=== PATIENT | male | born 1955 | race Caucasian/White ===

== ENCOUNTER 2017-01-29 16:18 | Inpatient (IN) ==
[2017-01-29] MEDS ORDERED: NICODERM PATCH TD ONE (16:49)
[2017-01-29 16:57] LABS: BASO% 0.2 % (0.0-0.8); EOS# 0.12 X1000 (0.0-0.7); EOS% 0.8 % (0.0-10.0); HEMATOCRIT 32.4 % (42.0-52.0); HEMOGLOBIN 10.6 g/dL (14.0-18.0); IMM GRAN# 0.07 X1000 (0.0-0.04); IMM GRAN% 0.5 % (0.0-0.5); LYMPH# 1.24 X1000 (1.2-3.4); LYMPH% 8.7 % (20.5-51.1); MANUAL DIFF NEEDED? NO; MCH 30.3 PG (27-31); MCHC 32.7 g/dL (33-37); MCV 92.6 FL (81-99); MONO# 1.13 X1000 (0.11-0.59); MPV 10.9 FL (7.4-10.4); NEUT% 81.8 % (42.2-75.2); PLT 377 X1000 (130-400)
[2017-01-29] MEDS ORDERED: LR 1,000 ML IV ONE (16:57)
[2017-01-29 17:03] LABS: INR 1.19; PROTIME 12.6 Seconds (9.2-11.7); PTT 38.5 Seconds (22.0-36.0)
[2017-01-29] MEDS ORDERED: NS 1,000 ML ONE (17:07)
[2017-01-29] MEDS ORDERED: NS 1,000 ML IV ONE (17:16)
[2017-01-29 17:25] LABS: ALBUMIN 3.5 g/dL (3.5-5.0); CALCIUM 8.5 mg/dL (8.8-10.2); POTASSIUM 4.8 mmol/L (3.5-5.1); TOTAL BILIRUBIN 0.49 mg/dL (0.20-1.00); TOTAL PROTEIN 7.8 g/dL (6.3-8.3)
--- NOTE | 2017-01-29 17:41 | PROVIDER DOCUMENTATION ---
This chart was entered by Elton Kumari Scribe, acting as scribe for Tae Walker MD. HPI-Rash/Wound/ReCheck - General Chief Complaint: Possible Sepsis-D Stated Complaint: WOUND ON FOOT, HALLUCINATIONS Time Seen by Provider: 01/29/17 16:43 Source: family Unable to obtain history due to:: altered Allergies/Adverse Reactions: Allergies Allergy/AdvReac Type Severity Reaction Status Date / Time No Known Allergies Allergy Verified 11/17/16 19:52 Home Medications: Home Medication List Medication Instructions Recorded Confirmed Last Taken Type Metformin [Glucophage] 1,000 mg PO BID 08/06/16 01/29/17 01/29/17 History Pregabalin [Lyrica] 150 mg PO BID 08/06/16 01/29/17 01/29/17 History Aspirin 81 mg PO DAILY 11/17/16 01/29/17 01/29/17 History Bupropion HCl [Bupropion HCl ER] 150 mg PO QAM 11/17/16 01/29/17 01/29/17 History Carvedilol [Coreg] 3.125 mg PO BID 11/17/16 01/29/17 01/29/17 History Furosemide [Furosemide] 20 mg PO BID 11/17/16 01/29/17 01/29/17 History Nortriptyline HCl 75 mg PO QHS 11/17/16 01/29/17 1 Day Ago History Diclofenac Sodium 75 mg PO BID 01/29/17 01/29/17 01/29/17 History Glipizide [Glipizide ER] 5 mg PO QAM 01/29/17 01/29/17 01/29/17 History Hydrocodone Bit/Acetaminophen 1 each PO Q6H PRN 01/29/17 01/29/17 01/29/17 History [Hydrocodon-Acetaminoph 7.5-325] - History of Present Illness-Dermatology Nature of Presenting Problem: patient is a 61 y/o m that presents from PCP office for evaluation of foot ulcer. patient has had hallucinations as well since saturday. He actually was at [facility] and was going to be admitted but he eloped. patient has no fever. Location: reports: lower extremity (left foot) Quality: reports: painful Severity: reports: moderate Onset/Duration: reports: unsure Timing: reports: still present, constant Context/Associated Symptoms: reports: other (diabetic wound) Locality of Occurance: Home Similar Symptoms Previously?: Yes Recently seen or treated by another doctor?: Yes Review of Systems - Adult - REVIEW OF SYSTEMS - ADULT Constitutional: denies: chills, fever Eyes: reports: no symptoms reported Ears, Nose, Mouth & Throat: reports: no symptoms reported Cardiovascular: denies: chest pain, palpitations Respiratory: denies: chronic cough, shortness of breath, wheezing Gastrointestinal: denies: abdominal pain, nausea, vomiting Genitourinary: reports: no symptoms reported Musculoskeletal: denies: back pain, joint pain, neck pain Integumentary: reports: skin sores/ulcer. denies: rash Neurological: reports: other (ams). denies: dizziness/vertigo, headache/ migraines Psychiatric: reports: other (hallucinations) Endocrine: reports: no symptoms reported Hematologic/Lymphatic: reports: no symptoms reported Allergic/Immunologic: reports: no symptoms reported All Other Systems: Reviewed and Negative Past History - Adult - PAST MEDICAL HISTORY-ADULT Review of Records: reports: Old Records Reviewed, Nursing Assessment Review, Medications Reviewed Major Childhood Illnesses: reports: denies history Cardiovascular: reports: CAD, HTN Respiratory: reports: asthma, COPD Gastrointestinal: reports: denies history Obstetrical/Gynecological: reports: denies history Genitourinary: reports: denies history Musculoskeletal: reports: denies history Neurological: reports: denies history Psychiatric: reports: denies history Endocrine/Immune: reports: Diabetes Other Conditions: reports: denies history - PRIOR SURGERIES/PROCEDURES Surgical/Procedure History: reports: none - PRIOR HOSPITALIZATIONS Prior Hospitalizations: reports: none - IMMUNIZATION STATUS Childhood Immunizations: See Nurse Assessment Flu Vaccine: See Nurse Assessment - FAMILY HISTORY Family History: reviewed, not pertinent - SOCIAL HISTORY Smoking: cigarettes, less than 1 pack/day Living Situation: family Physical Exam-General - PHYSICAL EXAM-ADULT Initial Vital Signs Reviewed: Yes - CONSTITUTIONAL General Appearance: mild distress, moderate distress, anxious, lethargic - EYES Eyes: PERRL/EOMI, pink conjunctivae - HEAD, EARS, NOSE, MOUTH & THROAT HENMT: normocephalic/atraumatic, moist mucous membranes, normal ENT inspection - NECK Neck: full range of motion, normal inspection - RESPIRATORY Respiratory: lungs clear, normal breath sounds, no respiratory distress, no accessory muscle use - CARDIOVASCULAR Cardiovascular: regular rate, rhythm, no edema, no murmur - GASTROINTESTINAL (ABDOMEN) Abdominal Exam: normal bowel sounds, non tender, soft - MUSCULOSKELETAL Back Exam: no CVA tenderness, no vertebral tenderness Extremity: no pedal edema, no calf tenderness - SKIN Integumentary: warm/dry, other (diabetic foot ulcer noted to left posterior great toe, also a large diabetic ulcer to left lateral foot with necrotic tissue and foul smell) - NEUROLOGIC Neurologic: negative: facial droop, focal weakness, motor weakness - PSYCHIATRIC Psych/Mental Status: anxious, other (confused) Progress - PLAN OF CARE/RESULTS Progress/Plan/Lab Results: Vital Signs - 8 hr 01/29/17 16:40 01/29/17 17:00 Temperature 98.3 F Pulse Rate 98 H 103 H Respiratory Rate 24 22 Blood Pressure 96/54 94/65 O2 Sat by Pulse Oximetry 98 100 Laboratory Results - last 24 hr 01/29/17 01/29/17 01/29/17 16:30 16:30 16:30 WBC 14.21 H RBC 3.50 L Hgb 10.6 L Hct 32.4 L MCV 92.6 MCH 30.3 MCHC 32.7 L RDW Std Deviation 13.6 Plt Count 377 MPV 10.9 H Immature Gran % (Auto) 0.5 Neut % (Auto) 81.8 H Lymph % (Auto) 8.7 L [place] % (Auto) 8.0 Eos % (Auto) 0.8 Baso % (Auto) 0.2 Immature Gran # (Auto) 0.07 H Neut # (Auto) 11.62 H Lymph # (Auto) 1.24 [place] # (Auto) 1.13 H Eos # (Auto) 0.12 Baso # (Auto) 0.03 PT INR PTT (Actin FS) Sodium 131 L Potassium 4.8 Chloride 89 L Carbon Dioxide 27 Anion Gap 15 BUN 66 H Creatinine 3.3 H Estimated GFR/1.73 m2 19 BUN/Creatinine Ratio 20 Glucose 99 Calculated Osmolality 282 Calcium 8.5 L Total Bilirubin 0.49 AST 36 H ALT 41 Alkaline Phosphatase 119 Creatine Kinase 172 Troponin T Total Protein 7.8 Albumin 3.5 Globulin 4.3 Albumin/Globulin Ratio 0.8 Plasma Lactate 1.8 01/29/17 01/29/17 16:30 16:30 WBC RBC Hgb Hct MCV MCH MCHC RDW Std Deviation Plt Count MPV Immature Gran % (Auto) Neut % (Auto) Lymph % (Auto) Plumas % (Auto) Eos % (Auto) Baso % (Auto) Immature Gran # (Auto) Neut # (Auto) Lymph # (Auto) [place] # (Auto) Eos # (Auto) Baso # (Auto) PT 12.6 H INR 1.19 PTT (Actin FS) 38.5 H Sodium Potassium Chloride Carbon Dioxide Anion Gap BUN Creatinine Estimated GFR/1.73 m2 BUN/Creatinine Ratio Glucose Calculated Osmolality Calcium Total Bilirubin AST ALT Alkaline Phosphatase Creatine Kinase Troponin T 0.067 Total Protein Albumin Globulin Albumin/Globulin Ratio Plasma Lactate Orders Category Date Time Status Cardiac Monitoring DIRECTED Care 01/29/17 16:43 Active IV Insertion ORDERED Care 01/29/17 16:43 Active Notify MD of + Sepsis Screen NOW Care 01/29/17 16:43 Active CHEST-2 VIEWS [RAD] Stat Exams 01/29/17 16:43 Ordered BLOOD CULTURE [BLDCUL] Stat Lab 01/29/17 16:52 Received CBC WITH DIFF [HEME] Stat Lab 01/29/17 16:30 Completed CK PROFILE [SP CHEM] Stat Lab 01/29/17 16:30 Completed COMPREHENSIVE METABOLIC PANEL [CHEM] Stat Lab 01/29/17 16:30 Completed LACTATE, PLASMA [CHEM] Stat Lab 01/29/17 16:30 Completed PROTIME WITH INR [COAG] Stat Lab 01/29/17 16:30 Completed PTT [COAG] Stat Lab 01/29/17 16:30 Completed TROPONIN T Stat Lab 01/29/17 16:30 Completed URINALYSIS W/POSS RFLX CULT-1 [URINALYSIS] Stat Lab 01/29/17 16:43 Uncollected 0.9% Sodium Chloride Inj [Ns] 1,000 ml Med 01/29/17 17:07 Discontinued .ROUTE As Directed 0.9% Sodium Chloride Inj [Ns] 1,000 ml Med 01/29/17 17:16 Active IV 999 mls/hr Nicotine Patch [Nicoderm Patch] Med 01/29/17 16:49 Discontinued 21 mg TD NOW ONE Oxygen Device Stat Oth 01/29/17 16:43 Active Transfer/Admit Order [TRANSFER] Routine Transfer 01/29/17 17:28 Ordered Result Diagrams: 01/29/17 16:30 01/29/17 16:30 - REASSESSMENT Reassessment #1 Status: unchanged (discussed admission and his walking out of the hospital last Saturday. he is a smoker and needs nicoderm) - CONSULTS/PCP/HOSPITALIST Notification #1 *Consult/PCP/Hospitalist*: ( on for hospitalist) Time Discussed: 16:55 Consult Disposition: Will see in ED, Admit Departure - Departure Date of Disposition Decision: 01/29/17 Time of Disposition Decision: 17:00 DIAGNOSIS: Diabetic foot infection, Cellulitis and abscess of foot, except toes Disposition: ADMITTED INPATIENT 09 Certified Medical Emergency: Emergent Condition: Stable Referrals and Follow-Ups: Dileep Geiger MD [ACTIVE STAFF PHYSICIAN] - - Critical Care Note This patient required my direct & personal management of CC.: No This chart was documented by the indicated scribe, (Elton Kumari, Scribe) and accurately reflects the services I performed and decisions made by me, Tae Walker MD, as attested by the provider's signature.
--- NOTE | 2017-01-29 17:55 | Diag Imaging Result Doc PS360 ---
EXAM: CHEST-2 VIEWS HISTORY: SEPSIS TECHNIQUE: Upright AP and lateral COMPARISON: 11/17/2016 FINDINGS: The lungs are well expanded. The heart is not enlarged. The vessels are not distended. There are no infiltrates. No pleural effusions. IMPRESSION: No pneumonia. Electronically signed by Aaron Su 01/29/2017 5:52 PM
--- NOTE | 2017-01-29 17:58 | HISTORY AND PHYSICAL ---
HISTORY OF PRESENT ILLNESS: This is a 61-year-old. He will presented with an ulcer in his right foot. Apparently went to [place]. He is a patient of Dr. Geiger. They told him to come the emergency room and he left AMA. They have been treating an open ulcer on his left big toe and he developed bullae and swelling and subcutaneous swelling around the foot and dorsum of foot and this has spread. Concerned about aggressive infection. Concerned about osteomyelitis. He will need to come in and get IV antibiotics. PAST MEDICAL HISTORY: 1. Diabetes mellitus type 2 which he has had over 12 years. 2. Tobacco abuse. 3. Coronary artery disease with mid RCA disease. 4. Chronic systolic heart failure with ejection fraction 20%, so ischemic cardiomyopathy. Ejection fraction was measured in September 2016. 5. He has aortic stenosis. 6. Restless legs syndrome. PAST SURGICAL HISTORY: None. ALLERGIES: No known drug allergies. MEDICATIONS: Amlodipine 10 mg a day, hydrocodone I think he takes for pain, metformin 100 mg b.i.d., Lyrica 75 mg b.i.d. SOCIAL HISTORY: He smokes 2 packs a day for over 40 years. No alcohol or illicit drugs. He is . REVIEW OF SYSTEMS: General: Denies any weight gain or loss. Not aware of any fever or chills. HEENT: Unremarkable. Respiratory: No increased work of breathing or dyspnea. Cardiovascular: No chest pain or tachy palpitation. GI/: No complaints. Endocrinologic/Hematologic: No significant history. PHYSICAL EXAMINATION: VITAL SIGNS: Temperature 98.3 degrees, pulse 103, respirations 22, blood pressure 94/65. O2 saturation 100% on 4 L. Height 5 feet 10 inches. HEENT: Pupils are equal, round. LUNGS: Clear in all lung mott. CARDIOVASCULAR: Regular rhythm and rate without murmur or S3. ABDOMEN: Soft. SKIN: Warm and dry. EXTREMITIES: Left foot with a callus on the dorsum the big toe, lateral foot, along the lateral metatarsal with a large bullae. This has extended below the dorsum of the foot, across the foot with no tenderness but he has significant severe peripheral neuropathy. LAB: White count 14,210, hematocrit was 32, platelet count 377,000. Electrolytes pending at this time. PT is 12.6, INR 1.19, and PTT is 38. CURRENT MEDICATIONS: He is on aspirin 81 mg a day. Apparently, they are tapering him down off of his Wellbutrin or bupropion 150 mg q.a.m. Coreg 3.125 mg b.i.d., diclofenac 75 mg b.i.d., Lasix 20 mg b.i.d., glipizide 5 mg q.a.m., hydrocodone 7.5/325 q.6 hours p.r.n., Glucophage 1000 mg b.i.d., nortriptyline 75 mg at bedtime, Lyrica 150 mg p.o. daily. ASSESSMENT AND PLAN: 1. Severe diabetic foot ulcer. Concerned about deep tissue infection. Concerned about possible osteomyelitis. We will get x-rays of the foot. I will ask infectious disease to follow. May need to pursue a CAT scan of the foot as well. We will begin him on antibiotics. He has had previous cultures that grew out enterococcus. Apparently this was done on 01/25, group D enterococcus and enterococcus faecalis and was sensitive to ampicillin and vancomycin. I will put him on some vancomycin. But I am going to cover with some Zosyn for now as well, multiple organisms. He was treated with Staph aureus in the past, Morganella morganii, and Acinetobacter in the past as well. I will give him some IV fluids. 2. Diabetes mellitus type 2. We will check pattern sugars. 3. Nicotine dependence. Use a nicotine patch. 4. General anxiety. He has left AMA before and does not like hospitals, so will let him have some Ativan p.r.n. cc: Manjit Henderson MD
[2017-01-29] MEDS ORDERED: ZOSYN 4.5 GM/NS 4.5 GM/100 ML IVPB IV SCH (18:13)
[2017-01-29] MEDS ORDERED: VANCOMYCIN 1 GM/NS 1 GM/250 ML IVPB IV ONE (18:13)
[2017-01-29] MEDS ORDERED: TYLENOL PO PRN (18:13)
[2017-01-29] MEDS ORDERED: VANCOMYCIN IV PER PHARMACY MISC SCH (19:15)
[2017-01-29] MEDS ORDERED: VANCOMYCIN 2 GM in NS 500 ML IV SCH (20:00)
[2017-01-29] MEDS ORDERED: VOLTAREN PO SCH (21:00)
[2017-01-29] MEDS ORDERED: GLUCOPHAGE PO SCH (21:00)
[2017-01-29] MEDS ORDERED: LASIX PO SCH (21:00)
[2017-01-29] MEDS: PAMELOR PO SCH (21:09)
[2017-01-29] MEDS: LYRICA PO SCH (21:10)
[2017-01-29] MEDS: COREG PO SCH (21:11)
[2017-01-29] MEDS ORDERED: D50W SYRINGE ONE (23:09)
[2017-01-29 23:35] LABS: ALLEN TEST YES; BE 0.6 mmoll (-3.0-3.0); BLOOD TYPE ARTERIAL; DRAW SITE R RADIAL; METHB 0.9 % (0.0-1.5); O2(CT) 13.1 mL/dL (15.0-23.0); PO2(98.6) 107 mmHg (60-100); SAMPLE BLOOD; SAO2 98.9 % (95.0-100.0); THB 9.6 g/dL (11.5-17.4)
[2017-01-29 23:37] LABS: MODALITY CANNULA; PCO2(98.6) 56 mmHg (35-45)
[2017-01-30] MEDS ORDERED: LEVOPHED 8 MG in D5 1/2 NS 250 ML IV SCH (00:15)
[2017-01-30 03:38] LABS: URINE SOURCE CATH
[2017-01-30 03:43] LABS: BILIRUBIN URINE NEGATIVE (NEGATIVE); BLOOD URINE NEGATIVE (NEGATIVE); COLOR YELLOW; GLUCOSE URINE NEGATIVE (NEGATIVE); LEUKOCYTES URINE NEGATIVE (NEGATIVE); NITRITE URINE NEGATIVE (NEGATIVE); PROTEIN URINE 30 mg/dL (NEGATIVE); TURBIDITY URINE HAZY (CLEAR); URINE MICRO REVIEW NEEDED? YES; UROBILINOGEN URINE 3 mg/dL (NORMAL)
[2017-01-30 03:45] LABS: UR EPITHELIAL CELLS <10 /HPF (<10); URINE WBC <10 /HPF (<10)
[2017-01-30 04:03] LABS: URINE BACTERIA 4+ /HPF; URINE CASTS GRANULAR PRESENT; URINE CRYSTALS NONE SEEN; URINE CULTURE NEEDED? YES; URINE RBC <10 /HPF (<10); URINE SMALL ROUND CELLS TRANS PRESENT
[2017-01-30 04:20] LABS: ALLEN TEST YES; BE -0.2 mmoll (-3.0-3.0); BLOOD TYPE ARTERIAL; DRAW SITE R RADIAL; METHB 1.1 % (0.0-1.5); PCO2(98.6) 48 mmHg (35-45); PO2(98.6) 93 mmHg (60-100); SAMPLE BLOOD; SAO2 98.3 % (95.0-100.0); THB 10.4 g/dL (11.5-17.4); pH(98.6) 7.34 (7.35-7.45)
[2017-01-30 04:21] LABS: MODALITY BI PAP
[2017-01-30] MEDS: ZOSYN 2.25 GM/NS 2.25 GM/50 ML IVPB IV SCH ×3 (04:29→18:30)
--- NOTE | 2017-01-30 05:31 | EKG Report ---
Test Performed on : 01/30/2017 02:01:29 AM Test Reason : Hypotension Blood Pressure : / mmHG Vent. Rate : 088 BPM Atrial Rate : 088 BPM P-R Int : 184 ms QRS Dur : 222 ms QT Int : 482 ms P-R-T Axes : 070 -09 046 degrees QTc Int : 583 ms Sinus rhythm. with premature supraventricular complexes. and fusion complexes Left bundle branch block Abnormal ECG When compared with ECG of 17 Nov 2016 19:49 No significant change was found Confirmed by Joshua Cifuentes DO ([id number]) on 02/01/2017 1:03:04 PM
[2017-01-30 05:46] LABS: BASO% 0.3 % (0.0-0.8); EOS# 0.25 X1000 (0.0-0.7); EOS% 2.2 % (0.0-10.0); HEMATOCRIT 30.4 % (42.0-52.0); HEMOGLOBIN 9.9 g/dL (14.0-18.0); IMM GRAN# 0.06 X1000 (0.0-0.04); IMM GRAN% 0.5 % (0.0-0.5); LYMPH# 1.54 X1000 (1.2-3.4); LYMPH% 13.7 % (20.5-51.1); MANUAL DIFF NEEDED? YES; MCH 30.4 PG (27-31); MCHC 32.6 g/dL (33-37); MCV 93.3 FL (81-99); MONO# 1.02 X1000 (0.11-0.59); MONO% 9.1 % (1.7-9.3); MPV 11.5 FL (7.4-10.4); NEUT% 74.2 % (42.2-75.2); PLT 343 X1000 (130-400); RBC 3.26 XMIL (4.7-6.1)
[2017-01-30 06:38] LABS: ALBUMIN 3.2 g/dL (3.5-5.0); CALCIUM 8.3 mg/dL (8.8-10.2); MAGNESIUM 1.8 mg/dL (1.5-2.7); POTASSIUM 4.7 mmol/L (3.5-5.1); TOTAL BILIRUBIN 0.49 mg/dL (0.20-1.00); TOTAL PROTEIN 6.5 g/dL (6.3-8.3)
[2017-01-30 06:46] LABS: BANDS 2 % (0-1); HYPOCHROM 1+; LYMPHS 18 % (21-51); MONO 6 % (1-9)
[2017-01-30 06:47] LABS: LARGE PLATELETS 1+
--- NOTE | 2017-01-30 07:24 | Diag Imaging Result Doc PS360 ---
EXAM: FOOT COMPLETE LEFT INDICATION: Left Foot Infection TECHNIQUE: 3 views COMPARISON: 01/25/2017 FINDINGS: Soft tissue ulceration is again noted overlying the region of the fifth MTP joint. There are no definite bony erosions identified to indicate osteomyelitis by plain radiograph this time. Otherwise, the bony structures are unchanged. IMPRESSION: Stable ulceration overlying the fifth MTP joint as described. No definite bony erosion can be identified on the current study. Electronically signed by Polo Mary 01/30/2017 7:22 AM
[2017-01-30] MEDS ORDERED: CUBICIN 700 MG in NS 100 ML IV SCH ×2 (08:15→09:00)
--- NOTE | 2017-01-30 08:35 | CONSULTATION ---
DATE OF CONSULTATION: 01/30/2017 DISCUSSION: The patient is unable to provide a history. No family member was present. The history was obtained from reviewing the information in the computer. The patient apparently developed an ulcer on his left foot. He went to [place], and he was told to come to the emergency room at [place], and he left AGAINST MEDICAL ADVICE. At the time, there was an open ulcer on his left big toe, and he developed bulla and swelling around the foot and dorsum. IMAGING AND LABORATORY DATA: The patient's lab studies show a CBC with a white count of 11,270, hemoglobin 9.9, and platelet count 343,000. Blood gases show pH of 7.34, PO2 of 93, and a pCO2 of 48. Creatinine is 3.4. GFR is 19. AST is 51. Urinalysis shows bacteria, but no white cells. Blood and urine cultures are pending. Chest x-ray shows no pneumonia. An x-ray of the patient's foot is pending also. PAST MEDICAL HISTORY: Positive for diabetes mellitus, cigarette smoking, coronary artery disease, congestive heart failure with ischemic cardiomyopathy and low ejection fraction. He also has an aortic stenosis and restless leg syndrome. PAST SURGICAL HISTORY: None. DRUG ALLERGIES: None. MEDICATIONS: The patient, at home, was taking amlodipine, hydrocodone, metformin, and Lyrica. SOCIAL HISTORY: The patient smokes 2 packs of cigarettes a day for over 40 years. He does not drink alcoholic beverages or use illicit drugs. The patient is . REVIEW OF SYSTEMS: Unable to be obtained. PHYSICAL EXAMINATION: Vital Signs: Temperature is 97.1 degrees, pulse 87, respirations 17, blood pressure 87/75. The patient is 5 feet 10 inches tall, and weighs 258 pounds. General: This is an ill-appearing, middle-aged male. He has a BiPAP mask on, and he is sedated. HEENT: He could hear my spoken words, and he did track with his eyes, indicating that he could see. There is no drainage from the nose or ears. Neck: No meningismus. Thorax: Increased AP diameter of the chest. Lungs: Clear to auscultation. Cardiovascular: Heart rate was regular. Peripheral pulses were diminished. Abdomen: Soft and nontender. Neurologic: The patient, as mentioned above, is sedated. For the most part, he was sleeping. He did follow request to move his extremities. There was no tremor. He did not answer questions when I asked them. Extremities: The left foot has, on the great toe, a lesion that was a bulla. The lateral distal part of the left foot has dry gangrene and a foul odor. CONCLUSION: This 61-year-old male diabetic has gangrene of the left foot. RECOMMENDATIONS: I obtained a culture from the foot. Pending this result, I agree with the decision to place the patient on Zosyn, but since the patient's creatinine is already elevated, I am going to discontinue vancomycin, and put the patient on daptomycin. Thank you for the consult. cc: Abundio Freeman MD
[2017-01-30] MEDS ORDERED: GLUCOTROL XL PO SCH (09:00)
--- NOTE | 2017-01-30 09:10 | CONSULTATION ---
DATE OF CONSULTATION: 01/30/2017 CHIEF COMPLAINT: Gangrene of the left fifth toe and base of the foot. HISTORY: This is a 61-year-old diabetic gentleman, apparently poorly compliant regarding his medical problems, who presents with gangrene of the left small toe and base of the foot. Apparently, he has a history of a neuropathic ulcer on the great toe, followed by Dr. De Dios for this problem. He has developed progressive necrosis of the left fifth toe and base of the foot. PAST MEDICAL HISTORY: Pertinent for type 2 diabetes, nicotine dependence, coronary artery disease, chronic systolic heart failure with EF of 20%, apparently aortic stenosis. PAST SURGICAL HISTORY: He has had no previous surgery. MEDICATIONS: Listed and include amlodipine, metformin, Lyrica, and hydrocodone. ALLERGIES: He has no known drug allergies. SOCIAL HISTORY: He smokes 2 packs per day. Denies alcohol. REVIEW OF SYSTEMS: As noted above. PHYSICAL EXAMINATION: Vital Signs: Afebrile, heart rate 87, respiratory rate 17, blood pressure 87/75. General: He is somewhat disheveled. Neck: He has no adenopathy. Lungs: Bilateral breath sounds. Heart: Regular rate and rhythm. Abdomen: Rotund, but nontender. Extremities: I do not palpate femoral pulses well. I do not palpate pedal pulses. He has no significant swelling. He does have gangrene of the left fifth toe that goes around to the base of the foot. He has a small ulceration under the great toe, with some alginate packed in it. No ulcerations are seen on the right foot. LABORATORY DATA: White count is 11,300, hemoglobin 9.9. PH 7.34. BUN 71, creatinine 3.4. ASSESSMENT: 1. Gangrene of the left fifth toe. 2. Diabetes. 3. Medical noncompliance. 4. Nicotine abuse. PLAN: The plan will be to get an MAURI study of his vasculature today. Unfortunately, his creatinine may prevent further evaluation with contrast. He most certainly will come to toe loss. The question is whether he will heal any kind of foot amputation. I will follow along. Thanks for the opportunity to see him. cc: Antonio Hanks MD
[2017-01-30] MEDS: ASPIRIN PO SCH (09:21)
[2017-01-30] MEDS: HUMALOG SUBQ SCH ×3 (10:57→20:07)
[2017-01-30 11:40] LABS: URINE SOURCE CATH
[2017-01-30 11:44] LABS: BILIRUBIN URINE NEGATIVE (NEGATIVE); BLOOD URINE MODERATE (NEGATIVE); COLOR YELLOW; GLUCOSE URINE NEGATIVE (NEGATIVE); LEUKOCYTES URINE SMALL (NEGATIVE); NITRITE URINE NEGATIVE (NEGATIVE); PROTEIN URINE 30 mg/dL (NEGATIVE); SP GRAVITY URINE 1.015; TURBIDITY URINE HAZY (CLEAR); URINE MICRO REVIEW NEEDED? YES; UROBILINOGEN URINE NORMAL (NORMAL)
[2017-01-30 11:56] LABS: UR CREAT RANDOM 90.4 mg/dL (14-26); UR PROT RANDOM 38.8 mg/dL
[2017-01-30 12:05] LABS: UR EPITHELIAL CELLS <10 /HPF (<10); URINE BACTERIA NEGATIVE /HPF; URINE CASTS NONE SEEN; URINE RBC TNTC /HPF (<10)
--- NOTE | 2017-01-30 14:09 | PROGRESS NOTE ---
DATE: 01/30/2017 SUBJECTIVE: Remains afebrile. OBJECTIVE: Temperature 97.3 degrees, pulse 92, respiration 17, blood pressure 114/87.HEENT: Pupils are equal. CVP less than 6 cm. Lungs: Clear in all lung mott. Cardiovascular: Regular rhythm and rate without murmur or S3. Abdomen: Soft. Skin: Warm and dry. Genitourinary: The urine output 1280 mL. Blood sugars is 142, 187. LAB: Hematocrit stable at 30. Sodium 142. Sugars are 142, 161, 57. Creatinine 3.4, BUN was 71. Creatinine is improved. ASSESSMENT AND PLAN: 1. Diabetic foot ulcer, gangrene in the left foot. Dr. Hanks to see from a surgical standpoint. He is on Zosyn, we will change from vancomycin to daptomycin because of renal insufficiency. Keep elevating the foot. 2. Acute on chronic renal insufficiency, acute kidney injury. Continue fluids. He did show improvement from yesterday. 3. Sepsis. Drop in blood pressure. He was moved to the unit. 4. Diabetes mellitus type 2. Continue pattern sugars. 5. Review of his orders: He is getting normal saline at 100 mL an hour. We adjusted the Zosyn to 2.25 mg IV q.8 hours and put him on daptomycin. cc: Manjit Henderson MD
--- NOTE | 2017-01-30 15:45 | CONSULTATION ---
DATE OF CONSULTATION: 01/30/2017 REASON FOR CONSULTATION: Acute kidney injury. HISTORY OF PRESENT ILLNESS: Mr. Layton is a 61-year-old white male with a history of diabetes for at least 2 years. He has ongoing tobacco abuse, coronary artery disease, peripheral vascular disease, aortic stenosis. He has had dry on ulcers on his feet especially on the left foot for at least a couple of years. He developed a new area of worsening eschar and redness and pain on the lateral aspect of the foot and under the plantar surface. Admission was recommended but he declined and went home. His foot continued to worsen and he therefore returned to the emergency room where he was admitted. He has significant pain. No chills or fevers. No cough or sputum. No shortness of breath. He states his intake has been decreased but no nausea or vomiting. No diarrhea. PAST MEDICAL HISTORY: As above. HOME MEDICATIONS: Include hydrocodone, metformin, Lyrica, amlodipine. ALLERGIES: None. SOCIAL: Ongoing smoker. . FAMILY HISTORY: Negative for kidney disease. REVIEW OF SYSTEMS: Otherwise noncontributory. PHYSICAL EXAMINATION: Vital Signs: Blood pressure 114/87, heart rate 92, respiration 17, afebrile. Generally: He is a middle-aged, chronically ill man, obese, in no distress. Skin: Warm and dry except as below. HEENT: Conjunctivae are pink and moist. Pupils are equal and round. Oropharynx is dry. Tongue is not coated. Neck: Supple. Trachea is midline. Neck veins are not visible. No hepatojugular reflux. Heart: PMI is nondisplaced. Regular rate and rhythm without gallops, murmurs or rubs. Lungs: Equal breath sounds. No crackles, wheezes, accessory muscle use or retractions. Abdomen: Obese and soft. Bowel sounds are present. No organomegaly, masses, bruits. Extremities: Have no edema, clubbing, or cyanosis. IMPRESSION: Renal failure. His baseline creatinine is 1.1 as of 4 days ago. This suggests intravascular volume depletion and possible acute tubular necrosis. He does not have any indications for hemodialysis at this time. Electrolytes and acid-base are in target. He still appears dry by exam. We will continue IV fluids. Check urine electrolytes, urine eosinophils, renal ultrasound, etcetera. I have reviewed his medications and no changes are required from my perspective. cc: Pavel Cummings MD
[2017-01-30] MEDS: NS 1,000 ML IV SCH ×2 (15:57→22:22)
[2017-01-30] MEDS: NORCO-7.5 PO PRN (17:05)
--- NOTE | 2017-01-30 17:24 | Diag Imaging Result Doc PS360 ---
EXAM: US RENAL 2 (RETROPER) COMPLETE HISTORY: decreased renal function TECHNIQUE: COMPARISON: None. FINDINGS: The right kidney measures 11.2 x 6.4 x 5.5 cm. Normal renal echogenicity and cortical thickness. No renal stones or hydronephrosis. No renal mass. The left kidney measures 12.5 x 5.1 x 7.0 cm. Normal renal echogenicity and cortical thickness. No renal stones or hydronephrosis. No renal mass. A Justin catheter has the urinary bladder decompressed. IMPRESSION: Normal renal ultrasound. Electronically signed by Aaron Su 01/30/2017 5:22 PM
[2017-01-30] MEDS: ZOFRAN IV PRN (20:12)
[2017-01-30] MEDS: ATIVAN IV PRN (21:45)
[2017-01-31] MEDS ORDERED: PHENERGAN IV ONE (00:33)
[2017-01-31] MEDS ORDERED: SODIUM CHLORIDE 0.9% INJ ONE (00:33)
[2017-01-31] MEDS: ZOSYN 2.25 GM/NS 2.25 GM/50 ML IVPB IV SCH ×3 (02:00→18:43)
[2017-01-31 05:15] LABS: HEMATOCRIT 33.8 % (42.0-52.0); HEMOGLOBIN 11.1 g/dL (14.0-18.0); MCH 30.7 PG (27-31); MCHC 32.8 g/dL (33-37); MCV 93.4 FL (81-99); MPV 10.5 FL (7.4-10.4); RBC 3.62 XMIL (4.7-6.1)
[2017-01-31 05:43] LABS: AGAP 15; ALBUMIN 3.1 g/dL (3.5-5.0); BUN 45 mg/dL (8-22); CALCIUM 8.8 mg/dL (8.8-10.2); CHLORIDE 97 mmol/L (98-107); COSMO 296; SODIUM 138 mmol/L (136-145); TCO2 26 mmol/L (25-35)
[2017-01-31] MEDS: ZOFRAN IV PRN (05:51)
[2017-01-31] MEDS: HUMALOG SUBQ SCH ×4 (06:12→20:25)
[2017-01-31] MEDS ORDERED: PHENOBARBITAL IV ONE ×2 (07:25→08:00)
--- NOTE | 2017-01-31 07:48 | PROGRESS NOTE ---
DATE: 01/31/2017 SUBJECTIVE: Mr. Layton was very agitated in the night and had delirium. Ativan did not seem to work well, in fact, it seemed to make things worse. OBJECTIVE: Vital Signs: Temperature 98 degrees, pulse 100, respirations 26, blood pressure 141/110. Lungs: Clear in all lung mott. Cardiovascular: Regular rhythm and rate without murmur or S3. Abdomen: Soft. Skin: Warm and dry. Urine output is over 5 L. LABORATORY DATA: White count 14,590, hematocrit 33, platelet count 422,000. Chemistry: Sodium 138, potassium 5.0, chloride 97, BUN 45, creatinine 1.2, blood sugars 157, 114, 249. ASSESSMENT AND PLAN: 1. Renal failure. Baseline creatinine was 1.1 four days ago, so I suspect intravascular volume depletion, possible acute tubular necrosis. He does not have indications for hemodialysis at this time. Electrolytes and acid base are on target. 2. Sepsis foot infection, left foot, gangrenous foot. Continue present antibiotics, which are daptomycin and Zosyn. He has had a previous culture, which showed enterococcus. Continue fluid management. Maintain his blood pressure. 3. Diabetes mellitus type 2. Continue to follow and pattern sugars. 4. Confusion and delirium. We will try Haldol as needed, and maybe phenobarbital. cc: Manjit Henderson MD
[2017-01-31] MEDS: NORCO-7.5 PO PRN ×2 (08:00→18:20)
[2017-01-31] MEDS: ASPIRIN PO SCH (08:09)
[2017-01-31] MEDS: NS 1,000 ML IV SCH ×2 (08:10→19:34)
[2017-01-31] MEDS: HALDOL IV PRN ×6 (09:04→23:17)
--- NOTE | 2017-01-31 10:37 | PROGRESS NOTE ---
DATE: 01/31/2017 SUBJECTIVE: He remains restrained and somewhat confused. He was on BiPAP overnight but currently on nasal cannula. OBJECTIVE: Vital Signs: Blood pressure 141/110, heart rate 103, respirations 26, afebrile. Intake 2.5 L. Output 3.3 L. PHYSICAL EXAMINATION: No acute distress. Oropharynx is dry. Neck veins are not visible. Heart is regular without gallops or murmurs. Lungs have equal breath sounds. No crackles. Abdomen is soft, nontender. Bowel sounds present. Extremities have no edema, clubbing, or cyanosis. IMPRESSION: 1. Acute kidney injury, resolving. 2. Electrolytes and acid-base are in target. I will sign off at this time. If I can be of further assistance, please do not hesitate to call. cc: Pavel Cummings MD
--- NOTE | 2017-01-31 15:37 | Diag Imaging Result Doc PS360 ---
EXAM: ANGIOGRAM/AORTA W/RUNOFF INDICATION: gangrene of foot TECHNIQUE: In addition to the standard thin section CTA images, coronal reformations, sagittal reformations, and radial MIPS were obtained. COMPARISON: None. FINDINGS: There is moderate aortic and more significant iliac artery atherosclerotic disease. There is no evidence of aortic aneurysm or dissection. There is mild narrowing at the origin of the celiac trunk, best appreciated on the sagittal reformations. There is trace atherosclerotic calcification at the origin of the SMA. However, it remains widely patent throughout its course. The KONRAD is patent throughout its course. There is trace atherosclerotic calcification involving the right renal artery. However, both renal arteries remain widely patent. There is extensive common iliac artery atherosclerotic calcification with intermittent moderate stenosis. There is extensive internal iliac artery calcification. There is fairly extensive atherosclerotic disease involving the external iliac arteries with intermittent mild to moderate stenosis proximally. There are bilateral small pleural effusions and there is bibasilar atelectasis. There is increased stool in the colon suggesting possible constipation. Otherwise, there is no evidence of acute pathology involving the abdomen or pelvis. Right: There is mild patchy atherosclerotic calcification involving the common femoral artery with no high-grade stenosis. There is extensive atherosclerotic calcification involving the superficial femoral artery which becomes totally occluded distally. There is reconstitution via collateralization just proximal to the popliteal artery. The popliteal artery remains patent. There are calcifications involving the anterior tibial artery proximally. The anterior tibial artery is very diminutive and cannot be identified below the level of the ankle. There is atherosclerotic calcification involving the tibioperoneal trunk with at least moderate stenosis. The posterior tibial artery is diminutive but it appears to provide runoff to the foot. The peroneal artery cannot be identified below the ankle. Left: There is atherosclerotic calcification involving the common femoral artery with moderate stenosis. However, it remains patent. There is extensive superficial femoral artery atherosclerotic calcification that is most significant at the mid and distal portions with intermittent subtotal to total occlusion. However, it is reconstituted just proximal to the popliteal artery. There is patchy atherosclerotic calcification involving the popliteal artery. However, it remains patent. There is extensive atherosclerotic calcification involving the anterior tibial artery proximally. It appears to be completely occluded at least below the level of the calf. There is atherosclerotic calcification involving the posterior tibial artery proximally. However, it does appear to provide runoff to the foot. There is peroneal artery atherosclerotic calcification it cannot clearly be identified below the level of the ankle. IMPRESSION: Moderate aortic atherosclerotic disease and fairly extensive atherosclerotic disease involving the iliac arteries and the arteries of the lower extremities with limited runoff to the feet provided at least mostly by the posterior tibial arteries. Electronically signed by Polo Mary 01/31/2017 3:34 PM
--- NOTE | 2017-01-31 16:21 | VASCULAR LAB ---
PROCEDURE NAME: Arterial Bilateral Legs - 01/30/2017 STUDY: Lower extremity arterial study. INDICATION: The patient has gangrene of the left foot. REFERRING PHYSICIAN: Antonio Hanks MD INTERPRETING PHYSICIAN: Antonio Hanks MD TECH: Fer FINDINGS: This study is somewhat difficult due to the patient's involuntary leg movement. Brachial pressure is 106. The right low thigh pressure is 83, right calf pressure 103, right dorsalis pedis 62, and right posterior tibial 90 for a right AB index of 0.84. The right great toe pressure is 95 for a right toe brachial index of 0.89. The PVRs are moderately diminished. On the left the low thigh pressure is 134, left calf pressure 118, left dorsalis pedis 90, and left posterior tibial 98 for a left AB index of 0.92. The left great toe pressure is 92 for a left toe brachial index of 0.86. The PVRs are moderately diminished. PPGs show minimal pulsatile flow in the digits of either foot. INTERPRETATION: Probable bilateral superficial femoral disease. In view of the diminished PVRs further evaluation with CT angiography may be helpful. Pressures could be falsely elevated. cc: Antonio Hanks MD
[2017-01-31] MEDS ORDERED: HALDOL IV ONE (18:06)
--- NOTE | 2017-01-31 19:31 | PROGRESS NOTE ---
DATE: 01/31/2017 PRESENT ILLNESS: The patient has gangrenous cellulitis involving the left foot. Unfortunately the aorta runoff shows that there is limited runoff to the feet. The culture from the foot is growing gram-positive cocci and gram-negative rods. MEDICATIONS: The patient is on daptomycin and Zosyn. I have modified both of the doses because of the patient's improving renal function. PHYSICAL EXAMINATION: Vital Signs: Temperature is 97.6 degrees, pulse 85, respirations 16, blood pressure 129/105. General: This is a lethargic middle-aged male. He is in no acute distress. Lungs: Clear to auscultation. Cardiovascular: The patient's heart rate most of the time was regular, at other times it was irregular. Abdomen: Soft and nontender. Extremities: The patient's left foot laterally has a gangrene and some brownish-red drainage. There is a foul odor too from the area. On the plantar aspect of the left great toe there is an ulcerated area. It is not draining anything at this time. Neurologic: As mentioned above. The patient is lethargic. He is in no acute distress. He does not have a tremor. LAB AND X-RAY: CBC-WBC 14.59, hgb 11.1, platelets 422K. Creatinine 1.2. GFR > 60. Aortagram with runoff shows decreased peripheral circulation. ASSESSMENT AND PLAN: The patient has gangrenous cellulitis of the foot with unfortunate decrease in blood supply to the foot. My plan is to continue with his current antibiotics namely daptomycin and Zosyn pending culture results. I have modified the dose of both antibiotics today because of the improved renal function. COMORBIDITIES: Diabetes mellitus, cigarette smoking, peripheral vascular disease and ischemic cardiomyopathy. cc: MD ALEXANDRA Lott
[2017-01-31] MEDS ORDERED: CUBICIN IV SCH (20:00)
[2017-01-31] MEDS ORDERED: NS IV SCH (20:00)
[2017-01-31] MEDS: ZOSYN 3.375 GM/NS 3.375 GM/50 ML IVPB IV SCH (23:42)
[2017-02-01] MEDS: NORCO-7.5 PO PRN ×3 (00:18→20:07)
[2017-02-01] MEDS: HALDOL IV PRN ×5 (01:02→18:41)
[2017-02-01] MEDS: NS 1,000 ML IV SCH ×3 (04:48→20:06)
[2017-02-01] MEDS: ZOSYN 3.375 GM/NS 3.375 GM/50 ML IVPB IV SCH ×4 (05:30→23:52)
[2017-02-01 05:37] LABS: AGAP 10; ALBUMIN 3.1 g/dL (3.5-5.0); BUN 41 mg/dL (8-22); CALCIUM 9.2 mg/dL (8.8-10.2); CHLORIDE 106 mmol/L (98-107); COSMO 300; POTASSIUM 4.5 mmol/L (3.5-5.1); SODIUM 144 mmol/L (136-145); TCO2 28 mmol/L (25-35)
[2017-02-01 06:07] LABS: HEMATOCRIT 32.4 % (42.0-52.0); HEMOGLOBIN 10.4 g/dL (14.0-18.0); MCH 30.4 PG (27-31); MCHC 32.1 g/dL (33-37); MCV 94.7 FL (81-99); MPV 10.5 FL (7.4-10.4); RBC 3.42 XMIL (4.7-6.1)
[2017-02-01] MEDS: HUMALOG SUBQ SCH ×4 (06:18→20:14)
--- NOTE | 2017-02-01 08:14 | PROGRESS NOTE ---
DATE: 02/01/2017 SUBJECTIVE: Mr. Layton is still confused, wants a sip of water, pretty agitated. He is scheduled for surgery today. OBJECTIVE: Vital Signs: Temp 97 degrees, pulse 100, respirations 12, blood pressure 126/85. HEENT: Pupils are equal and round. CVP less than 6 cm. Lungs: Clear in all lung mott. Cardiovascular: Regular rhythm and rate without murmur or S3. Abdomen: Soft. Skin is warm and dry. Extremities: Eft foot with a large bullae, anaerobic smell. LABORATORY: Urine output is 1300 mL, blood sugars 244, 174, 158. ASSESSMENT AND PLAN: 1. Diabetes mellitus type 2. Continue to follow pattern sugars. 2. Gangrenous cellulitis of the left foot. Unfortunately aortic runoff shows that he has limited runoff to the feet. Culture of the foot is growing gram-positive. The patient on daptomycin and Zosyn. 3. Arteriogram. Probable bilateral superficial femoral disease in view of diminished PVRs. Further evaluation with CT angiographic recommended. 4. CT with angiogram, moderate aortic atherosclerotic disease and fairly extensive atherosclerotic disease involving the iliac arteries and arteries of the lower extremities. Limited runoff to the feet, provided at least posterior tibial arteries. He is scheduled for surgery today. Continue daptomycin. Continue Zosyn. cc: Manjit Henderson MD
[2017-02-01] MEDS: ATIVAN IV PRN ×2 (09:17→23:49)
[2017-02-01] MEDS ORDERED: VERSED ONE (10:27)
[2017-02-01] MEDS ORDERED: DIPRIVAN 1% ONE (10:27)
[2017-02-01] MEDS ORDERED: QUELICIN (DOSE) ONE (10:27)
[2017-02-01] MEDS ORDERED: XYLOCAINE-MPF 2% ONE (10:27)
[2017-02-01] MEDS ORDERED: FENTANYL ONE (10:27)
[2017-02-01] MEDS ORDERED: AMIDATE ONE (10:29)
[2017-02-01] MEDS: LYRICA PO SCH ×2 (12:46→20:09)
[2017-02-01] MEDS: WELLBUTRIN XL PO SCH (12:46)
[2017-02-01] MEDS: COREG PO SCH ×2 (12:46→20:09)
[2017-02-01] MEDS: ASPIRIN PO SCH (12:46)
--- NOTE | 2017-02-01 15:38 | OPERATIVE NOTE ---
PROCEDURE DATE: 02/01/2017 PROCEDURE: 1. Amputation, left 5th toe. 2. Excisional debridement of the left foot involving skin, subcutaneous tissue, tendon and muscle 5 x 5 cm. SURGEON: Antonio Hanks MD. OPERATOR ASSISTANT I CEMENTING: Jayce Leblanc RN. 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 DESCRIPTION OF PROCEDURE: Satisfactory general anesthesia was achieved. The left foot was prepped and draped in a sterile fashion. We incised the skin at the border between the necrotic skin and the viable skin. We carried our incision into the webspace between the 4th and 5th toes. We dissected to the metatarsal phalangeal joint and amputated the toe through that joint. Then used a periosteal elevator to go back to the mid metatarsal shaft and amputated the bone in mid metatarsal shaft. We then debrided the skin, subcutaneous tissue, tendon down into the plantar aspect of the foot measuring 5 x 5 cm. We removed all the necrotic debris and purulence back to viable tissue as best we could. The 4th toe is at risk because of the infection but it is still viable at this point. After an excisional debridement we then used a curette to curette out the necrotic debris and every crevice of the wound. We then copiously irrigated. Hemostasis was satisfactory. We packed it with a Betadine-impregnated gauze followed by sterile 4 x 4s, followed by Kerlix followed by an Dmitri. He tolerated it well, was sent to the recovery room in satisfactory condition. cc: Antonio Hanks MD
--- NOTE | 2017-02-01 17:50 | PROGRESS NOTE ---
DATE: 02/01/2017 PRESENT ILLNESS: The patient is status post amputation of the little toe plus debridement of the foot. MEDICATIONS: The patient is on a combination of Zosyn and daptomycin. PHYSICAL EXAMINATION: Vital Signs: Temperature is 97.9 degrees, pulse 81, respiration is 15, blood pressure 105/66. General: This is an ill-appearing, middle-aged male. He is in no acute distress. Lungs: Scattered rhonchi bilaterally. Cardiovascular: Heart rate is regular. Abdomen: Soft and nontender. Extremities: The patient's left foot has a large dressing around it. The dressing is intact. LAB AND X-RAY: There is no new x-ray. CBC shows a white count of 12,420, hemoglobin 10.4, and platelet count 418,000. Creatinine is 1.2. The GFR is greater than 60. The culture from the foot is growing Enterococcus and Serratia. ASSESSMENT AND PLAN: The patient has gangrenous cellulitis as well as osteomyelitis and is status post surgery, amputating the toe and debriding the distal part of the foot. From an infectious disease point of view, I plan to continue Zosyn. I have discontinued daptomycin. COMORBIDITIES: The patient has diabetes mellitus. He smokes cigarettes. He has peripheral vascular disease and ischemic cardiomyopathy. cc: Abundio Freeman MD
[2017-02-01] MEDS: PAMELOR PO SCH (20:07)
[2017-02-02] MEDS: ZOSYN 3.375 GM/NS 3.375 GM/50 ML IVPB IV SCH ×4 (05:32→23:41)
[2017-02-02] MEDS: HUMALOG SUBQ SCH ×4 (06:00→20:06)
[2017-02-02] MEDS: NS 1,000 ML IV SCH ×2 (06:01→11:07)
[2017-02-02 07:14] LABS: HEMATOCRIT 33.3 % (42.0-52.0); HEMOGLOBIN 10.4 g/dL (14.0-18.0); MCH 29.9 PG (27-31); MCHC 31.2 g/dL (33-37); MCV 95.7 FL (81-99); MPV 10.8 FL (7.4-10.4); RBC 3.48 XMIL (4.7-6.1)
[2017-02-02 07:26] LABS: AGAP 11; ALBUMIN 2.7 g/dL (3.5-5.0); BUN 22 mg/dL (8-22); CALCIUM 8.5 mg/dL (8.8-10.2); CHLORIDE 105 mmol/L (98-107); COSMO 291; POTASSIUM 4.9 mmol/L (3.5-5.1); SODIUM 143 mmol/L (136-145); TCO2 27 mmol/L (25-35)
[2017-02-02] MEDS: HALDOL IV PRN ×4 (07:27→21:19)
[2017-02-02] MEDS: WELLBUTRIN XL PO SCH (08:33)
[2017-02-02] MEDS: LYRICA PO SCH ×2 (08:33→20:05)
[2017-02-02] MEDS: ASPIRIN PO SCH (08:34)
[2017-02-02] MEDS: COREG PO SCH ×2 (08:34→20:05)
[2017-02-02] MEDS: ATIVAN IV PRN ×2 (09:01→16:01)
--- NOTE | 2017-02-02 09:14 | PROGRESS NOTE ---
DATE: 02/02/2017 SUBJECTIVE: Mr. Layton is still having some confusion. He is very thirsty. Had surgery yesterday on this foot per Dr. Hanks. He has ischemic gangrene of the left 5th toe and foot. He had excisional debridement of the left foot involving skin and subcutaneous tissue, tendon and muscle, amputation of left 5th toe. OBJECTIVE: Vital Signs: Temperature 97.0 degrees, pulse 100, respirations 22, blood pressure 136/82. HEENT: Pupils are equal. Lungs: Clear in all lung mott. Cardiovascular: Regular rhythm and rate without murmur or S3. Abdomen: Soft. Skin: Warm and dry. Intake and output: Urine output is 2600 mL. LAB: White count 12,940, hematocrit 33, platelet count 410,000. Sodium 143, potassium 4.9, chloride 105, BUN 22, creatinine 0.8, blood sugar 158, 185, 139, albumin 2.7. ASSESSMENT AND PLAN: 1. Status post amputation of the left toe, debridement of the foot. On Zosyn and daptomycin. Diabetic foot ulcer. 2. Acute on chronic renal insufficiency. Creatinine is 0.8 which is improved, so good urine output. Blood sugar 158, 185, 139. Blood sugars look under good control. 3. Some delirium, confusion. Continue to use the Haldol as needed. Hospital psychosis. He is on Zosyn 3.375 mg IV q.6. He is on Pamelor 75 mg at bedtime. We are using norepinephrine as needed for blood pressure, Coreg 3.125 mg b.i.d., Wellbutrin XL 150 mg q.a.m., and aspirin 81 mg a day. cc: Manjit Henderson MD
[2017-02-02] MEDS: NORCO-7.5 PO PRN ×2 (11:45→21:19)
[2017-02-02] MEDS: PAMELOR PO SCH (20:05)
[2017-02-03] MEDS: ATIVAN IV PRN ×3 (01:10→18:32)
[2017-02-03] MEDS: NS 1,000 ML IV SCH ×4 (05:04→17:38)
[2017-02-03] MEDS: ZOSYN 3.375 GM/NS 3.375 GM/50 ML IVPB IV SCH ×4 (05:31→23:51)
[2017-02-03] MEDS: HUMALOG SUBQ SCH ×4 (06:01→20:19)
[2017-02-03 06:11] LABS: HEMATOCRIT 33.1 % (42.0-52.0); HEMOGLOBIN 10.6 g/dL (14.0-18.0); MCH 30.5 PG (27-31); MCV 95.4 FL (81-99); MPV 10.8 FL (7.4-10.4); RBC 3.47 XMIL (4.7-6.1)
[2017-02-03] MEDS: HALDOL IV PRN (06:41)
[2017-02-03 06:53] LABS: AGAP 10; BUN 16 mg/dL (8-22); CALCIUM 8.5 mg/dL (8.8-10.2); CHLORIDE 104 mmol/L (98-107); COSMO 289; POTASSIUM 4.6 mmol/L (3.5-5.1); SODIUM 143 mmol/L (136-145); TCO2 29 mmol/L (25-35)
[2017-02-03] MEDS: WELLBUTRIN XL PO SCH (08:21)
[2017-02-03] MEDS: LYRICA PO SCH ×2 (08:22→20:02)
[2017-02-03] MEDS: COREG PO SCH ×2 (08:22→20:02)
[2017-02-03] MEDS: ASPIRIN PO SCH (08:22)
--- NOTE | 2017-02-03 09:37 | PROGRESS NOTE ---
DATE: 02/03/2017 The patient is still having some episodes of confusion, but he is just tired of being in this bed and overall doing much better. He PHYSICAL EXAMINATION: Vital Signs: He remains. Afebrile, temp 96.9 degrees, pulse 100, respirations 20, blood pressure 171/99. HEENT: Pupils are equal round. CVP less than 6 cm. Lungs: Clear in all lung mott. Cardiovascular: Regular rhythm and rate without murmur or S3. Abdomen: Soft. Skin is warm and dry. LAB: Urine output is 2700. Blood sugar 148,148,143. White count 05464, hematocrit 33, platelet count 457,000. Blood sugar 147,150,143. ASSESSMENT AND PLAN: 1. Status post amputation left 5th toe, diabetic foot ulcer. Extensive infection, is on Zosyn and daptomycin. 2. Acute on chronic renal insufficiency. Creatinine has improved. Her urine output is good. 3. Diabetes mellitus type 2. Continue to follow sugars are under good control. 4. Still episodic delirium. It will help when we can get him out of bed and encourage p.o. intake. Review of lab. I do not see any change in his orders. I have reviewed normal saline at 100 mL an hour, Lyrica 150 mg b.i.d., Zosyn 3.375 mg IV q.6, Wellbutrin XL 150 mg q.a.m., aspirin 81 mg a day, Coreg 3.125 mg b.i.d., and he gets hydrocodone for pain p.r.n. 7.5 mg. cc: Manjit Henderson MD
[2017-02-03] MEDS ORDERED: LACTULOSE PO PRN (11:36)
[2017-02-03] MEDS: NORCO-7.5 PO PRN ×2 (11:38→21:07)
[2017-02-03] MEDS ORDERED: LASIX IV ONE (12:34)
[2017-02-03] MEDS: DUONEB (A & A) INH SCH (15:54)
[2017-02-03] MEDS: PAMELOR PO SCH (21:07)
[2017-02-04] MEDS: NORCO-7.5 PO PRN ×3 (04:19→21:35)
[2017-02-04] MEDS: ZOSYN 3.375 GM/NS 3.375 GM/50 ML IVPB IV SCH ×4 (05:35→23:44)
[2017-02-04 06:01] LABS: HEMATOCRIT 32.3 % (42.0-52.0); HEMOGLOBIN 10.4 g/dL (14.0-18.0); MCH 30.9 PG (27-31); MCHC 32.2 g/dL (33-37); MCV 95.8 FL (81-99); MPV 10.5 FL (7.4-10.4); RBC 3.37 XMIL (4.7-6.1)
[2017-02-04] MEDS: HUMALOG SUBQ SCH ×4 (06:03→21:35)
[2017-02-04 06:19] LABS: AGAP 10; ALBUMIN 2.9 g/dL (3.5-5.0); BUN 15 mg/dL (8-22); CHLORIDE 99 mmol/L (98-107); COSMO 288; POTASSIUM 4.2 mmol/L (3.5-5.1); SODIUM 142 mmol/L (136-145); TCO2 33 mmol/L (25-35)
[2017-02-04] MEDS: DUONEB (A & A) INH SCH ×6 (07:50→23:12)
[2017-02-04] MEDS: WELLBUTRIN XL PO SCH (08:36)
[2017-02-04] MEDS: COREG PO SCH ×2 (08:36→21:34)
[2017-02-04] MEDS: ASPIRIN PO SCH (08:37)
[2017-02-04] MEDS: LYRICA PO SCH ×2 (08:37→21:35)
[2017-02-04 11:22] LABS: INR 1.42; PROTIME 15.3 Seconds (9.2-11.7)
[2017-02-04] MEDS ORDERED: NS 250 ML ONE (12:51)
--- NOTE | 2017-02-04 14:15 | Diag Imaging Result Doc PS360 ---
EXAM: CHEST-PORTABLE HISTORY: PICC line insertion and pt in AFIB TECHNIQUE: Portable AP COMPARISON: 01/29/2017 FINDINGS: Interval placement of a right-sided PICC line. The tip overlies the distal superior vena cava. The lungs are well expanded. The heart is borderline mildly prominent. No consolidation. No pleural effusions identified. IMPRESSION: Placement of a right-sided PICC line in good position. Electronically signed by Aaron Su 02/04/2017 2:13 PM
[2017-02-04] MEDS: NS 1,000 ML IV SCH (15:01)
--- NOTE | 2017-02-04 17:32 | PROGRESS NOTE ---
DATE: 02/04/2017 PRESENT ILLNESS: The patient is status post amputation of the little toe plus debridement of the foot. MEDICATIONS: The patient is receiving Zosyn as a single agent. PHYSICAL EXAMINATION: Vital Signs: Temperature is 98.2 degrees, pulse 96, respirations 18, blood pressure 158/95. General: This is an obese, elderly male. He is in no acute distress. Lungs: Clear to auscultation. Cardiovascular: Regular heart rate. Abdomen: Soft and nontender. Extremities: I removed the patient's dressing to the left foot. The wound does not have any erythema or necrotic tissue. However, I do not see much in the way of granulation occurring either. There is less erythema of the foot, however. The patient does have a small plantar ulcer on his left foot also. LAB AND X-RAY: CBC shows a white count of 14,410, hemoglobin 10.4, and platelet count 397,000. Creatinine 0.8. GFR is greater than 60. Chest x-ray shows no consolidation. Culture from the foot grew Serratia and enterococcus, both of which have been have been isolated from both foot cultures. ASSESSMENT AND PLAN: Patient has cellulitis of the foot. He has had amputation of the little toe. The plan is to continue with the current antibiotic, namely Zosyn. The patient's comorbidities include diabetes mellitus, cigarette smoking, peripheral vascular disease, and ischemic cardiomyopathy. cc: Abundio Freeman MD
[2017-02-04] MEDS: PAMELOR PO SCH (21:33)
[2017-02-04] MEDS: ATIVAN IV PRN (21:35)
[2017-02-04] MEDS: SANTYL OINT TOP SCH (21:36)
[2017-02-05] MEDS: DUONEB (A & A) INH SCH ×6 (02:55→23:48)
[2017-02-05] MEDS: HUMALOG SUBQ SCH ×4 (06:16→20:56)
[2017-02-05] MEDS: NORCO-7.5 PO PRN ×3 (06:19→22:41)
[2017-02-05] MEDS: ZOSYN 3.375 GM/NS 3.375 GM/50 ML IVPB IV SCH ×3 (06:20→18:19)
[2017-02-05] MEDS: ASPIRIN PO SCH (09:23)
[2017-02-05] MEDS: COREG PO SCH ×2 (09:23→20:52)
[2017-02-05] MEDS: LYRICA PO SCH ×2 (09:23→20:52)
[2017-02-05] MEDS: WELLBUTRIN XL PO SCH (09:23)
[2017-02-05] MEDS: SANTYL OINT TOP SCH ×2 (09:23→22:42)
[2017-02-05] MEDS: NS 1,000 ML IV SCH (09:26)
--- NOTE | 2017-02-05 11:02 | PROGRESS NOTE ---
DATE: 02/05/2017 SUBJECTIVE: This patient is completely alert and oriented x3. He has been without restraints since yesterday in the morning. He is not confused, he is just tired of being in the bed. I will advance his diet from full liquid diet to diabetic diet. I will transfer this patient to the floor. I will remove the Justin catheter and start physical therapy. OBJECTIVE: Vital Signs: Temperature 97.5 degrees, pulse 95, respiratory rate 22, blood pressure 124/81, oxygen saturation 98 on 2 L of nasal cannula. HEENT: Head normocephalic. No trauma. PERRLA. Neck: Supple. No JVD. No masses. Central trachea. Chest: Clear to auscultation. No wheezing. No rales. Abdomen: Soft, nontender, nondistended. No hepatosplenomegaly. Skin/extremities: He has multiple scratches at the level of the lower extremities, and he has a left clean dressing on his left foot. Neurological examination: The patient is completely alert and oriented x3. No focal neurological deficits. LABORATORY: No lab work done today. ASSESSMENT AND PLAN: 1. Status post amputation of the left fifth toe secondary to diabetic foot ulcer, extensive infection. Continue with Zosyn and daptomycin as per Infectious Disease Department. 2. Acute on chronic kidney disease, resolved. 3. Type 2 diabetes. Continue to follow sugars. Blood sugar has been stable. Continue with the same treatment. 4. Confusion/delirium. He has been good for the past 24 hours, he has not been confused. 5. Peripheral vascular disease. Aware. 6. Ischemic cardiomyopathy. This patient is not complaining of chest pain at this moment. 7. Tobacco abuse. This patient has been highly advised against tobacco use. I will continue with daily cessation education. CRITICAL CARE TIME: 30 minutes. DISPOSITION: This patient will be transferred to the medical floor for further treatment. cc: Tanvir Garnica MD
[2017-02-05] MEDS: PAMELOR PO SCH (20:52)
[2017-02-06] MEDS: ZOSYN 3.375 GM/NS 3.375 GM/50 ML IVPB IV SCH ×4 (00:42→17:51)
[2017-02-06] MEDS: DUONEB (A & A) INH SCH ×6 (03:31→23:35)
[2017-02-06] MEDS: NORCO-7.5 PO PRN ×3 (05:43→21:33)
--- NOTE | 2017-02-06 06:37 | PROGRESS NOTE ---
DATE: 02/06/2017 SUBJECTIVE: Patient doing okay. No major issues. He was transferred out from the ICU to the floor. OBJECTIVE: Vital Signs: Patient is currently afebrile. His vital signs have been stable. General: No acute distress. Cardiovascular: Regular rate and rhythm. Lungs: Grossly clear. Abdomen: Soft, nontender, nondistended. Extremities: Left lower extremity amputation site with decent granulation tissue. No active drainage at this time. ASSESSMENT AND PLAN: A 61-year-old male status post amputation of left 5th toe. Postoperative state. At this time, we will continue local wound care with Andres and Camille. We will continue to monitor closely. cc: Kamron Hurtado MD
[2017-02-06 07:03] LABS: MANUAL DIFF NEEDED? NO
[2017-02-06 07:30] LABS: AGAP 9; BASO% 0.8 % (0.0-0.8); BUN 15 mg/dL (8-22); CALCIUM 8.5 mg/dL (8.8-10.2); CHLORIDE 98 mmol/L (98-107); COSMO 281; EOS# 0.46 X1000 (0.0-0.7); EOS% 4.5 % (0.0-10.0); HEMATOCRIT 27.5 % (42.0-52.0); HEMOGLOBIN 8.8 g/dL (14.0-18.0); IMM GRAN# 0.07 X1000 (0.0-0.04); IMM GRAN% 0.7 % (0.0-0.5); LYMPH# 2.15 X1000 (1.2-3.4); LYMPH% 21.1 % (20.5-51.1); MCH 29.8 PG (27-31); MCV 93.2 FL (81-99); MONO# 0.71 X1000 (0.11-0.59); MPV 10.8 FL (7.4-10.4); NEUT% 65.9 % (42.2-75.2); PLT 205 X1000 (130-400); POTASSIUM 3.8 mmol/L (3.5-5.1); RBC 2.95 XMIL (4.7-6.1); SODIUM 138 mmol/L (136-145); TCO2 31 mmol/L (25-35)
[2017-02-06] MEDS: HUMALOG SUBQ SCH ×4 (08:20→21:34)
[2017-02-06] MEDS: ASPIRIN PO SCH (08:21)
[2017-02-06] MEDS: LYRICA PO SCH ×2 (08:21→21:33)
[2017-02-06] MEDS: WELLBUTRIN XL PO SCH (08:21)
[2017-02-06] MEDS: COREG PO SCH ×2 (08:22→21:33)
[2017-02-06] MEDS: NS 1,000 ML IV SCH (08:23)
[2017-02-06] MEDS: SANTYL OINT TOP SCH ×2 (15:42→21:37)
--- NOTE | 2017-02-06 16:00 | PROGRESS NOTE ---
DATE: 02/06/2017 PRESENT ILLNESS: The patient is status post amputation of the little toe of the left foot with debridement of the foot including debridement of bone. The infection did extend to the bone. MEDICATIONS: Patient is receiving Zosyn as a single agent. PHYSICAL EXAMINATION: Vital Signs: Temperature is 97.6, pulse 96, respirations 14, blood pressure 109/63. General: This is an obese, but otherwise fairly healthy-appearing, middle-aged male. He is in no acute distress. Lungs: Clear to auscultation. Cardiovascular: Regular heart rate. Extremities: Patient has a PICC in his arm. The site is not erythematous or swollen. The patient's left foot was examined today. There is a large wound. It is for the most part, beefy red tissue with fat tissue in the wound as well. There is no surrounding erythema. There is no necrosis, and there is no odor to the wound. LAB AND X-RAY: The CBC today shows a white count of 10,180, hemoglobin 8.8, and platelet count 205,000. Creatinine is 0.7. GFR is greater than 60. Cultures from the patient's foot grew Pseudomonas and enterococcus. ASSESSMENT AND PLAN: The patient has cellulitis and osteomyelitis of the foot. He has had amputation of the little toe and extensive debridement of the foot. My plan is to continue Zosyn for another 3-6 weeks. The patient already has a PICC, and I have consulted [facility] to supply the patient's home IV antibiotic. COMORBIDITIES: Include diabetes mellitus, cigarette smoking, peripheral vascular disease and ischemic cardiomyopathy. cc: Abundio Freeman MD
[2017-02-06] MEDS: PAMELOR PO SCH (21:33)
[2017-02-07] MEDS: ZOSYN 3.375 GM/NS 3.375 GM/50 ML IVPB IV SCH ×4 (00:43→12:09)
[2017-02-07] MEDS: DUONEB (A & A) INH SCH ×3 (03:39→11:20)
[2017-02-07] MEDS: NORCO-7.5 PO PRN (05:21)
[2017-02-07] MEDS: NS 1,000 ML IV SCH (05:34)
[2017-02-07] MEDS: HUMALOG SUBQ SCH ×2 (06:25→11:24)
--- NOTE | 2017-02-07 07:11 | PROGRESS NOTE ---
DATE: 02/07/2017 SUBJECTIVE: Patient doing well. No major issues. He has discharge orders pending. OBJECTIVE: Vital Signs: The patient is currently afebrile. His vital signs are stable. General: No acute distress. Cardiovascular: Regular rate and rhythm. Lungs: Grossly clear. Abdomen: Soft, nontender, nondistended. Extremities: Left lower extremity amputation site healing well. Dressing in place. ASSESSMENT AND PLAN: A 61-year-old male, status post amputation of left fifth toe. Postoperative state. At this time, he can be discharged home with continued local wound care with Jamie. cc: Kamron Hurtado MD MTDD
[2017-02-07 07:15] LABS: MANUAL DIFF NEEDED? NO
[2017-02-07 07:36] LABS: AGAP 8; BUN 13 mg/dL (8-22); CALCIUM 8.7 mg/dL (8.8-10.2); CHLORIDE 97 mmol/L (98-107); COSMO 284; POTASSIUM 4.2 mmol/L (3.5-5.1); SODIUM 139 mmol/L (136-145); TCO2 34 mmol/L (25-35)
[2017-02-07 07:56] LABS: BASO% 0.8 % (0.0-0.8); EOS# 0.35 X1000 (0.0-0.7); EOS% 3.4 % (0.0-10.0); HEMATOCRIT 29.2 % (42.0-52.0); HEMOGLOBIN 9.2 g/dL (14.0-18.0); IMM GRAN# 0.04 X1000 (0.0-0.04); IMM GRAN% 0.4 % (0.0-0.5); LYMPH# 1.77 X1000 (1.2-3.4); LYMPH% 17.2 % (20.5-51.1); MCH 29.7 PG (27-31); MCHC 31.5 g/dL (33-37); MCV 94.2 FL (81-99); MONO# 0.64 X1000 (0.11-0.59); MONO% 6.2 % (1.7-9.3); MPV 10.6 FL (7.4-10.4); PLT 489 X1000 (130-400)
[2017-02-07 08:27] VITALS: BP 111/67
[2017-02-07] MEDS: COREG PO SCH (08:54)
[2017-02-07] MEDS: WELLBUTRIN XL PO SCH (08:54)
[2017-02-07] MEDS: LYRICA PO SCH (08:55)
[2017-02-07] MEDS: ASPIRIN PO SCH (08:55)
[2017-02-07] MEDS: SANTYL OINT TOP SCH (12:19)
--- NOTE | 2017-02-07 14:49 | DISCHARGE SUMMARY ---
ADMISSION DATE: 01/29/2017 DISCHARGE DATE: 02/06/2017 CONSULTATIONS: 1. Dr. Abundio Freeman with Infectious Disease. 2. Dr. Antonio Hanks with General Surgery. 3. Dr. Pavel Cummings with Nephrology. PERTINENT PROCEDURES: 1. Showed stable ulceration overlying the 5th MTP joint. No definite bony erosion could be identified. 2. Extremity arterial study showed probable bilateral superficial femoral disease infused with a diminished PVRs. Further evaluation with CT Angiography may be helpful. Pressures could be falsely elevated. 3. Aorta with runoff CTA showed moderate aortic atherosclerotic disease and fairly extensive atherosclerotic disease involving the iliac arteries and the arteries of the lower extremities with limited runoff to the feet, provided at the least mostly the posterior tibial artery. 4. Amputation of the 5th left toe with excisional debridement of the left foot involving skin, subcutaneous tissue, tendon and muscle, 5 x [address] Antonio Hanks. DISCHARGE DIAGNOSES: 1. Status post amputation of the left toe, excisional debridement of left foot involving skin and subcutaneous tissue, tendon and muscle by Dr. 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 The patient will continue with wound care and antibiotics for General Surgery and Infectious Disease. 2. Acute on chronic kidney disease. Resolved. 3. Type 2 diabetes. Continue on home regimen. 4. Confusion delirium resolved. 5. Peripheral vascular disease, aware. 6. Ischemic cardiomyopathy. No chest pain. 7. Tobacco abuse. Patient has been advised daily against smoking cessation. HOSPITAL COURSE: Mr. Layton is a 61-year-old male with past medical history of diabetes mellitus type 2. Nicotine dependence coronary artery disease, chronic systolic heart failure. Poorly compliant with his medical diagnosis. Presented to the ED with gangrene of his left small toe at the base of his foot. 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 De Dios. He developed progressive necrosis on his left 5th toe and at the base of the foot. The patient underwent arterial studies as well as renal ultrasound in aorta runoff with CTA. He had an acute kidney injury on arrival to the ED. Dr. Abundio Freeman with Infectious Disease was involved and he was started on IV fluid. The patient was placed on Zosyn and daptomycin. His acute kidney injury resolved. His CTA of the lower extremities did show limited runoff to the feet provided at the least mostly via the posterior tibial arteries. The patient underwent amputation of the left 5th toe and excisional debridement of the left foot involving skin subcutaneous tissue, tendon and muscle 5.0 x [address] Antonio Hanks. He remained in the ICU. He had some confusion and delirium and presented to the hospital with psychosis. He was given Haldol p.r.n. His confusion improved and he was able to move out of the ICU. His Justin catheter was removed. He was started on physical therapy. Dr. Mendez is discharging the patient home today. IV antibiotics per Dr. Freeman and follow-up with surgery for wound care. VITAL SIGNS: Temperature is 97.6 degrees, heart rate 85, respirations 20, blood pressure is 109/63, O2 is 100%. DISCHARGE DIET: Diabetic. DISCHARGE MEDICATIONS: As per Dr. Garnica. Please see MAR. FOLLOWUP: Mr. Layton is being discharged home with home antibiotics per Dr. Freeman. He will follow up with him in 3 weeks. He will follow up with General Surgery to continue with wound care as per the instructions. He can return to the ED for any worsening of symptoms. DISCHARGE TIME: Thirty (30) minutes. Dictated by WYATT Reyez for Tanvir Garnica MD cc: MD Dileep Roche MD
--- NOTE | 2017-02-07 16:20 | DISCHARGE SUMMARY ---
ADMISSION DATE: 01/29/2017 DISCHARGE DATE: 02/07/2017 ADDENDUM: The patient was set for discharge on 02/06/2017; however, [facility] was unable to come and teach the patient on 02/06/2017, so his discharge was held until 02/07/17. He has received his discharge teaching, and he will be discharged home today. No acute events overnight, and he continues to be stable for discharge. VITAL SIGNS: Temperature is 98 degrees, heart rate 93, respirations 18, blood pressure is 111/67, O2 is 100%. Dictated by WYATT Reyez for Tanvir Garnica MD cc: Tanvir Garnica MD
== END 2017-02-07 13:00 | disposition home health service (06) ==
LOC: SUPCPDRO → ED 16:18 → SUATTDRO 17:52 → 4N 17:52 → ICU 01-30 01:28 → 3N 02-05 16:27
PROVIDERS: ATTEND Internal Medicine

== ENCOUNTER 2018-11-21 17:19 | Inpatient (IN) ==
[2018-11-21] MEDS ORDERED: ASPIRIN PR ONE (17:33)
[2018-11-21] MEDS ORDERED: SODIUM BICARBONATE 8.4% ONE (18:00)
[2018-11-21] MEDS ORDERED: NS ONE (18:00)
[2018-11-21] MEDS ORDERED: EPINEPHRINE SYRINGE ONE (18:00)
--- NOTE | 2018-11-21 18:04 | PROVIDER DOCUMENTATION ---
This chart was entered by Sarah Batista Scribe, acting as scribe for Ramin Caal MD. HPI-Cardiopulmonary Arrest - General Source: EMS - History of Present Illness-C/P Arrest Reason for Code Blue?: full arrest Witnessed arrest?: Yes Noted by:: family CPR initiated before doctor arrival?: Yes Down-time before ACLS?: see above Initial Findings: unresponsive, asystole, no respirations Treatment initiated prior to doctor arrival?: Initiated CPR/thumper (thumper), Initiated IV fluids, Initiated epinephrine #mg (2), Initiated sodium bicarb # amps (1), Initiated other (1 mg of Narcan. Amari airway.) Similar Symptoms Previously?: No Recently seen or treated by another doctor?: No - Pre-hospital Treatment EMS Initial Findings:: unresponsive, other rhythm (asystole), no respirations Pre-hospital Treatment: Initiated CPR, Initiated IV fluids, Initiated epinephrine (2), Initiated other (bicarb. Narcan. Amari Airway) <Ramin Caal - Last Filed: 11/21/18 18:04> - General Source: family <Antonio Painting - Last Filed: 11/21/18 20:29> - General Chief Complaint: Full Arrest Stated Complaint: full arrest Time Seen by Provider: 11/21/18 17:19 Allergies/Adverse Reactions: Allergies Allergy/AdvReac Type Severity Reaction Status Date / Time MERLYN Inhibitors AdvReac Unknown Verified 04/22/18 12:10 digoxin AdvReac Unknown Verified 04/22/18 12:10 Home Medications: Home Medication List Medication Instructions Recorded Confirmed Last Taken Type Aspirin 81 mg PO DAILY 11/17/16 04/22/18 04/21/18 History Furosemide 20 mg PO DAILY 11/17/16 04/22/18 04/21/18 History Carvedilol 6.25 mg PO BID 03/05/17 04/22/18 04/21/18 History Metformin HCl 1,500 mg PO QAM 12/03/17 04/22/18 04/21/18 History Metformin HCl [Metformin ER 1,000 mg PO HS 12/03/17 04/22/18 04/21/18 History Osmotic] Pregabalin [Lyrica] 225 mg PO BID 12/03/17 04/22/18 04/21/18 History Sitagliptin [Januvia] 100 mg PO DAILY 12/03/17 04/22/18 04/21/18 History Glipizide 5 mg PO DAILY 02/17/18 04/22/18 04/21/18 History Oxycodone HCl/Acetaminophen 1 ea PO Q6H PRN PRN #14 tab 02/18/18 04/22/18 04/21/18 Rx [Oxycodon-Acetaminophen 7.5-325] Duloxetine HCl 1 cap PO DAILY 04/22/18 04/22/18 04/22/18 09:00 History Amlodipine [Norvasc] 5 mg PO HS #30 tab 04/25/18 Unknown Rx Doxycycline 100 mg PO Q12H #56 tab 04/25/18 Unknown Rx - History of Present Illness-C/P Arrest Initial Comments: Patient is a 62 year old male who presents to the ED via EMS with cardiopulmonary arrest. Patient's states patient has been complaining of ch est pain and shortness of breath for the past 3 days. states she was calling 911 when the patient collapsed. EMS gave 2 epi, 1 bicarb and 1 mg of Narcan prior to arrival. EMS also placed a Amari airway. 1719 - patient arrived in ED. 1720 - rhythm check. no pulse. compressions resumed. 1723 - intubation placed. 1726 - epi given. 1727 - rhythm check. no pulse compressions resumed. 1729 - epi given. 1730 - rhythm check. pulse present. 1734 - bicarb given. 1735 - bicarb given. 1736 - bicarb given. (Ramin Caal) Review of Systems - Adult - REVIEW OF SYSTEMS - ADULT ROS:: unobtainable per condition Constitutional: reports: no symptoms reported Eyes: reports: no symptoms reported Ears, Nose, Mouth & Throat: reports: no symptoms reported Cardiovascular: reports: no symptoms reported Respiratory: reports: no symptoms reported Gastrointestinal: reports: no symptoms reported Genitourinary: reports: no symptoms reported Musculoskeletal: reports: no symptoms reported Integumentary: reports: no symptoms reported Neurological: reports: no symptoms reported Psychiatric: reports: no symptoms reported Endocrine: reports: no symptoms reported Hematologic/Lymphatic: reports: no symptoms reported Allergic/Immunologic: reports: no symptoms reported All Other Systems: Reviewed and Negative <Ramin Caal - Last Filed: 11/21/18 18:04> Past History - Adult - PAST MEDICAL HISTORY-ADULT Review of Records: reports: Nursing Assessment Review, Medications Reviewed, Social history reviewed & non-contributory. Major Childhood Illnesses: reports: denies history Cardiovascular: reports: CAD, HTN Respiratory: reports: asthma, COPD Gastrointestinal: reports: GERD Obstetrical/Gynecological: reports: denies history Genitourinary: reports: denies history Musculoskeletal: reports: denies history Neurological: reports: denies history Psychiatric: reports: denies history Endocrine/Immune: reports: Diabetes Other Conditions: reports: denies history - PRIOR SURGERIES/PROCEDURES Surgical/Procedure History: reports: pacemaker - PRIOR HOSPITALIZATIONS Prior Hospitalizations: reports: none - IMMUNIZATION STATUS Childhood Immunizations: See Nurse Assessment Flu Vaccine: See Nurse Assessment - FAMILY HISTORY Family History: reviewed, not pertinent - SOCIAL HISTORY Smoking: cigarettes, greater than 1 pack/day Provider spent 3-5 mins advising pt. on dangers of tobacco.: Discussed manners to quit use, and f/u contacts for add'l counseling. Substance Use: denies Living Situation: family <Ramin Caal - Last Filed: 11/21/18 18:04> Physical Exam-General - PHYSICAL EXAM-ADULT Initial Vital Signs Reviewed: Yes - CONSTITUTIONAL General Appearance: other (unresponsive) - EYES Eyes: other (bilateral pupils fixed and dilated) - RESPIRATORY Respiratory: other (no audible heart sounds.) - CARDIOVASCULAR Cardiovascular: other (no audible lung sounds) - SKIN Integumentary: pallor - NEUROLOGIC Neurologic: other (unable to assess per patient's condition) - PSYCHIATRIC Psych/Mental Status: other (unresponsive) <Ramin Caal - Last Filed: 11/21/18 18:04> - HEAD, EARS, NOSE, MOUTH & THROAT HENMT: moist mucous membranes - GASTROINTESTINAL (ABDOMEN) Abdominal Exam: non tender - MUSCULOSKELETAL Extremity: normal range of motion, non-tender, no calf tenderness <Antonio Painting - Last Filed: 11/21/18 20:29> Progress - PLAN OF CARE/RESULTS Result Diagrams: 11/21/18 17:50 - EKG 1 Time of EKG reading by physician:: 17:37 EKG Read and Signed by:: Ramin Caal EKG Interpretation (*Must complete 3 of following elements*): Abnormal (rhythm - atrial-sensed ventricular-paced rhythm with frequent premature ventricular complexes) Rate: 79 [place]: normal AR Interval: normal Comments: abnormal ECG - CONSULTS/PCP/HOSPITALIST Notification #1 *Consult/PCP/Hospitalist*: Dr. Wilkinson Time Discussed: 17:56 Reason/Comments: Dr. Caal consulted with Dr. Wilkinson about patient. #2 Consult: [facility] Time Discussed: 18:01 Reason/Comments: Dr. Caal consulted with [facility]. <Ramin Caal - Last Filed: 11/21/18 18:04> - PLAN OF CARE/RESULTS Result Diagrams: 11/21/18 17:50 11/21/18 17:50 - REASSESSMENT Reassessment #1 Time Reassessed: 20:27 Status: unchanged (ready for transport to [facility], NG aspirate noted to be bloody, probable stress upper GI bleed, add pantoprazole iv now.) - CONSULTS/PCP/HOSPITALIST Notification #3 Consult: DR GIVENS ACCEPTS ADMISSION TO ICU AT [facility]. <Antonio Painting - Last Filed: 11/21/18 20:29> - PLAN OF CARE/RESULTS Progress/Plan/Lab Results: Vital Signs - 8 hr 11/21/18 17:19 11/21/18 17:40 11/21/18 17:41 Temperature 0 F L Pulse Rate 0 L 80 84 Respiratory Rate 0 L 20 Blood Pressure 0/0 161/79 O2 Sat by Pulse Oximetry 0 L 98 100 11/21/18 18:00 11/21/18 18:28 11/21/18 18:30 Temperature Pulse Rate 84 Respiratory Rate 25 H Blood Pressure 72/42 73/50 68/40 O2 Sat by Pulse Oximetry 95 11/21/18 18:46 11/21/18 19:02 11/21/18 19:30 Temperature Pulse Rate 85 86 89 Respiratory Rate 20 22 17 Blood Pressure 81/59 76/53 89/52 O2 Sat by Pulse Oximetry 95 95 93 L Laboratory Results - last 24 hr 11/21/18 11/21/18 11/21/18 17:48 17:50 17:50 WBC RBC Hgb Hct MCV MCH MCHC RDW Std Deviation Plt Count MPV Immature Gran % (Auto) Neut % (Auto) Lymph % (Auto) [place] % (Auto) Eos % (Auto) Baso % (Auto) Immature Gran # (Auto) Neut # (Auto) Lymph # (Auto) [place] # (Auto) Eos # (Auto) Baso # (Auto) Segmented Neutrophils Band Neutrophils Lymphocytes Monocytes Metamyelocytes Atypical Lymphocytes Vacuolization Large Platelets Polychromasia Poikilocytosis Macrocytosis Target Cells Stomatocytes PT INR PTT (Actin FS) Specimen Type ARTERIAL Sample Site R RADIAL pH 6.97 L* pCO2 93 H* pO2 100 HCO3 15.3 L Base Excess -12.2 L Oxyhemoglobin 92.2 L ABG O2 Sat (Calculated) 17.7 ABG O2 Saturation 97.9 ABG Carboxyhemoglobin 4.40 H ABG Methemoglobin 1.3 Manjit Test YES A-a O2 Difference 497.0 Total Hemoglobin 13.6 Lactate 14.50 H* Blood Gas Modality VENTILATOR Vent Mode A/C Spontaneous Rate 14 FiO2 % 100.0 Tidal Volume 550 PEEP 3.0 Sodium 136 Potassium 6.7 H* Chloride 93 L Carbon Dioxide 16 L Anion Gap 28 BUN 35 H Creatinine 3.9 H Estimated GFR/1.73 m2 16 BUN/Creatinine Ratio 9 Glucose 118 H POC Glucose Calculated Osmolality 281 Calcium 8.4 L Total Bilirubin 0.70 AST 27 ALT 17 Alkaline Phosphatase 104 Creatine Kinase 66 Troponin T 0.042 Bzy-O-Jhacnjbpzvs Pept Total Protein 6.6 Albumin 3.5 Globulin 3.0 Albumin/Globulin Ratio 1.0 11/21/18 11/21/18 11/21/18 17:50 17:50 17:50 WBC 18.35 H RBC 4.67 L Hgb 14.1 Hct 42.9 MCV 91.9 MCH 30.2 MCHC 32.9 L RDW Std Deviation 15.4 H Plt Count 102 L MPV Not Reportable Immature Gran % (Auto) 8.3 H Neut % (Auto) 61.4 Lymph % (Auto) 18.4 L [place] % (Auto) 11.1 H Eos % (Auto) 0.3 Baso % (Auto) 0.5 Immature Gran # (Auto) 1.52 H Neut # (Auto) 11.27 H Lymph # (Auto) 3.37 [place] # (Auto) 2.04 H Eos # (Auto) 0.06 Baso # (Auto) 0.09 Segmented Neutrophils 54 Band Neutrophils 9 H Lymphocytes 27 Monocytes 4 Metamyelocytes 3.0 Atypical Lymphocytes 3.0 Vacuolization 1+ Large Platelets OCCASIONAL Polychromasia OCCASIONAL Poikilocytosis OCCASIONAL Macrocytosis 1+ Target Cells OCCASIONAL Stomatocytes OCCASIONAL PT 20.6 H INR 1.68 PTT (Actin FS) 55.9 H Specimen Type Sample Site pH pCO2 pO2 HCO3 Base Excess Oxyhemoglobin ABG O2 Sat (Calculated) ABG O2 Saturation ABG Carboxyhemoglobin ABG Methemoglobin Manjit Test A-a O2 Difference Total Hemoglobin Lactate Blood Gas Modality Vent Mode Spontaneous Rate FiO2 % Tidal Volume PEEP Sodium Potassium Chloride Carbon Dioxide Anion Gap BUN Creatinine Estimated GFR/1.73 m2 BUN/Creatinine Ratio Glucose POC Glucose Calculated Osmolality Calcium Total Bilirubin AST ALT Alkaline Phosphatase Creatine Kinase Troponin T Vye-L-Nagaqnahitf Pept 99548 H Total Protein Albumin Globulin Albumin/Globulin Ratio 11/21/18 17:50 WBC RBC Hgb Hct MCV MCH MCHC RDW Std Deviation Plt Count MPV Immature Gran % (Auto) Neut % (Auto) Lymph % (Auto) [place] % (Auto) Eos % (Auto) Baso % (Auto) Immature Gran # (Auto) Neut # (Auto) Lymph # (Auto) [place] # (Auto) Eos # (Auto) Baso # (Auto) Segmented Neutrophils Band Neutrophils Lymphocytes Monocytes Metamyelocytes Atypical Lymphocytes Vacuolization Large Platelets Polychromasia Poikilocytosis Macrocytosis Target Cells Stomatocytes PT INR PTT (Actin FS) Specimen Type Sample Site pH pCO2 pO2 HCO3 Base Excess Oxyhemoglobin ABG O2 Sat (Calculated) ABG O2 Saturation ABG Carboxyhemoglobin ABG Methemoglobin Manjit Test A-a O2 Difference Total Hemoglobin Lactate Blood Gas Modality Vent Mode Spontaneous Rate FiO2 % Tidal Volume PEEP Sodium Potassium Chloride Carbon Dioxide Anion Gap BUN Creatinine Estimated GFR/1.73 m2 BUN/Creatinine Ratio Glucose POC Glucose 144 H D Calculated Osmolality Calcium Total Bilirubin AST ALT Alkaline Phosphatase Creatine Kinase Troponin T Jgw-L-Qygnxtnsdcy Pept Total Protein Albumin Globulin Albumin/Globulin Ratio Orders Category Date Time Status Cardiac Monitoring DIRECTED Care 11/21/18 17:35 Active NG/OG/Feeding Tube Insertion ORDERED Care 11/21/18 18:17 Active Nursing [Mis. NRSG Communication Order] DIRECTED Care 11/21/18 18:52 Active Oxygen Therapy- ED Nursing DIRECTED Care 11/21/18 17:35 Active Saline Loc NOW Care 11/21/18 17:35 Active CHEST-PORTABLE [RAD] Stat Exams 11/21/18 17:56 Completed ABG [RESP] Routine Lab 11/21/18 17:48 Completed BLOOD CULTURE [BLDCUL] Stat Lab 11/21/18 18:33 Ordered CBC WITH ELECTRONIC DIFF [HEME] Stat Lab 11/21/18 17:50 Completed CK PROFILE [SP CHEM] Stat Lab 11/21/18 17:50 Completed COMPREHENSIVE METABOLIC PANEL [CHEM] Stat Lab 11/21/18 17:50 Completed PRO B-NATRIURETIC PEPTIDE Stat Lab 11/21/18 17:50 Completed PROTIME WITH INR [COAG] Stat Lab 11/21/18 17:50 Completed PTT [COAG] Stat Lab 11/21/18 17:50 Completed TROPONIN T Stat Lab 11/21/18 17:50 Completed 0.9% Sodium Chloride Inj [Ns] 1,000 ml Med 11/21/18 18:24 Discontinued IV 999 mls/hr 0.9% Sodium Chloride Inj [Ns] 250 ml Med 11/21/18 19:00 Active Epinephrine 4 mg IV As Directed mls/hr Aspirin Med 11/21/18 17:33 Discontinued 300 mg AR NOW ONE Calcium Chloride 1 gm Med 11/21/18 18:45 Discontinued 0.9% Sodium Chloride Inj [Ns] 100 ml IV NOW Dextrose 5%-0.45% NaCl Inj [D5 1/2 Ns] 250 ml Med 11/21/18 18:15 Active Norepinephrine [Levophed] 8 mg IV As Directed mls/hr Dextrose 50% Syringe [D50w Syringe] Med 11/21/18 18:46 Discontinued 50 ml IV NOW ONE Hydrocortisone Sod Succinate [Solu-Cortef] Med 11/21/18 18:57 Discontinued 100 mg IV NOW ONE Insulin Human Regular ([place] [Humulin R ([place])] Med 11/21/18 18:52 Discontinued 10 units .ROUTE .STK-MED ONE Insulin Human Regular [Humulin R] Med 11/21/18 18:46 Discontinued 10 unit IV NOW ONE Piperacillin/Tazobactam [Zosyn] 3.375 gm Med 11/21/18 18:32 Discontinued 0.9% Sodium Chloride Inj [Ns] 50 ml IV NOW Vancomycin 1 gm/Ns Med 11/21/18 18:32 Discontinued 1 gm in 250 ml IV NOW CP/SOB/Palp >45 yrs of Age Stat Oth 11/21/18 17:33 Ordered EKG [EKG] Stat Ther 11/21/18 17:35 Ordered Transfer/Admit Order [TRANSFER] Routine Transfer 11/21/18 19:32 Ordered Procedures - INTUBATION Time of Intubation: 17:23 Intubation Method: orotracheal Equipment: ETT, Bougie Tube Size (cm): 7.5 Pretreated with 100% Oxygen?: Yes Breath Sounds after Intubation: equal ETT Primary Tube Confirmation: Capnometry CO2 Change, Direct Visualization, Chest Rise and Fall Intubation Complications: no complications Vent Settings: See Respiratory Therapy Notes <Ramin Caal - Last Filed: 11/21/18 18:04> Departure <Ramin Caal - Last Filed: 11/21/18 18:04> - Departure Date of Disposition Decision: 11/21/18 Time of Disposition Decision: 19:41 Certified Medical Emergency: Emergent - Critical Care Note This patient required my direct & personal management of CC.: Yes Total Time (mins): 70 Critical Care Statement: This patient required my direct personal management to treat or rule out processes, the absence of which, could potentiallly result in sudden, clinically significant life or limb threatening deterioration. <Antonio Painting - Last Filed: 11/21/18 20:29> - Departure DIAGNOSIS: Cardiac arrest, Right upper lobe pneumonia, COPD (chronic obstructive pulmonary disease), Sepsis associated hypotension, Hyperkalemia, Upper GI bleeding Disposition: ADMITTED INPATIENT 09 Condition: Serious Attestation - Physician/ JASSI Attestation The physician spent face to face time with patient:: Yes Advanced Practice Provider documentation review:: Supervising physician onsite and consulted in the evaluation and care of this patient. The physician did have a face to face encounter with the patient. <Ramin Caal - Last Filed: 11/21/18 18:04> - Physician/ JASSI Attestation The physician spent face to face time with patient:: Yes Advanced Practice Provider documentation review:: Supervising physician onsite and consulted in the evaluation and care of this patient. The physician did have a face to face encounter with the patient. <Antonio Painting - Last Filed: 11/21/18 20:29> This chart was documented by the fina scribe, (Sarah Batista Scribe) and accurately reflects the services I performed and decisions made by me, Ramin Caal MD, as attested by the provider's signature.
[2018-11-21 18:06] LABS: BE -12.2 mmoll (-3.0-3.0); BLOOD TYPE ARTERIAL; HCO3-(ACT) 15.3 mmoll (20.0-26.0); METHB 1.3 % (0.0-1.5); O2(CT) 17.7 mL/dL (15.0-23.0); O2HB 92.2 % (95.0-99.0); PO2(98.6) 100 mmHg (60-100); SAMPLE BLOOD; SAO2 97.9 % (95.0-100.0); SRATE 14 BPM; THB 13.6 g/dL (11.5-17.4); TVOL 550 mL
[2018-11-21 18:06] LABS: BASO% 0.5 % (0.0-0.8)
[2018-11-21 18:10] LABS: INR 1.68; PROTIME 20.6 Seconds (11.0-16.0)
[2018-11-21 18:12] LABS: PTT 55.9 Seconds (22.3-41.8)
[2018-11-21] MEDS ORDERED: LEVOPHED 8 MG in D5 1/2 NS 250 ML IV SCH (18:15)
[2018-11-21 18:16] LABS: BASO# 0.09 X1000 (0.0-0.2); EOS# 0.06 X1000 (0.0-0.7); EOS% 0.3 % (0.0-10.0); HEMATOCRIT 42.9 % (42.0-52.0); HEMOGLOBIN 14.1 g/dL (14.0-18.0); IMM GRAN# 1.52 X1000 (0.0-0.04); IMM GRAN% 8.3 % (0.0-0.5); LYMPH# 3.37 X1000 (1.2-3.4); LYMPH% 18.4 % (20.5-51.1); MCH 30.2 PG (27-31); MCHC 32.9 g/dL (33-37); MCV 91.9 FL (81-99); MONO# 2.04 X1000 (0.11-0.59); MONO% 11.1 % (1.7-9.3); NEUT# 11.27 X1000 (1.4-6.5); NEUT% 61.4 % (42.2-75.2); PLT 102 X1000 (130-400); RBC 4.67 XMIL (4.7-6.1); RDW 15.4 % (11.5-14.5); WBC 18.35 X1000 (4.8-10.8)
--- NOTE | 2018-11-21 18:21 | Diag Imaging Result Doc PS360 ---
EXAM: CHEST-PORTABLE HISTORY: post intub TECHNIQUE: Portable chest single view COMPARISON: 04/23/2018 FINDINGS: There are dense infiltrates in the upper right lung. The left lung is well expanded and clear. Heart is borderline mildly prominent. No pulmonary edema. There is a left-sided pacemaker. An endotracheal tube is in good position with the tip located approximately 3 to 4 cm above the shalini. IMPRESSION: Endotracheal tube in good position. Right upper lung pneumonia. Electronically signed by Aaron Su 11/21/2018 6:19 PM
[2018-11-21] MEDS ORDERED: NS 1,000 ML IV ONE (18:24)
[2018-11-21] MEDS ORDERED: ZOSYN 3.375 GM in NS 50 ML IV ONE (18:32)
[2018-11-21] MEDS ORDERED: VANCOMYCIN 1 GM/NS 1 GM/250 ML IVPB IV ONE (18:32)
[2018-11-21 18:36] LABS: pH(98.6) 6.97 (7.35-7.45)
[2018-11-21 18:37] LABS: PCO2(98.6) 93 mmHg (35-45)
[2018-11-21 18:39] LABS: ALLEN TEST YES; MODALITY VENTILATOR
[2018-11-21 18:41] LABS: BANDS 9 % (0-1); LYMPHS 27 % (21-51); MONO 4 % (1-9); SEGS 54 % (42-75)
[2018-11-21 18:42] LABS: ALBUMIN 3.5 g/dL (3.5-5.0); CALCIUM 8.4 mg/dL (8.8-10.2); CREATININE 3.9 mg/dL (0.7-1.2); POLYCHROM OCCASIONAL; POTASSIUM 6.7 mmol/L (3.5-5.1); TOTAL BILIRUBIN 0.7 mg/dL (0.20-1.00); TOTAL PROTEIN 6.6 g/dL (6.3-8.3)
[2018-11-21 18:43] LABS: POIKILOCYTOSIS OCCASIONAL; TARGET CELLS OCCASIONAL; VACUOLES 1+
[2018-11-21 18:44] LABS: LARGE PLATELETS OCCASIONAL; STOMATOCYTES OCCASIONAL
[2018-11-21] MEDS ORDERED: CALCIUM CHLORIDE 1 GM in NS 100 ML IV ONE (18:45)
[2018-11-21] MEDS ORDERED: D50W SYRINGE IV ONE (18:46)
[2018-11-21] MEDS ORDERED: HUMULIN R IV ONE (18:46)
[2018-11-21] MEDS ORDERED: HUMULIN R (PARKWAY) ONE (18:52)
[2018-11-21] MEDS ORDERED: SOLU-CORTEF IV ONE (18:57)
[2018-11-21] MEDS ORDERED: EPINEPHRINE 4 MG in NS 250 ML IV SCH ×2 (19:00→22:00)
[2018-11-21] MEDS ORDERED: PROTONIX ONE (20:26)
[2018-11-21] MEDS ORDERED: STERILE WATER INJ. ONE (20:27)
[2018-11-21] MEDS ORDERED: PROTONIX IV ONE (20:28)
[2018-11-21] MEDS ORDERED: SODIUM CHLORIDE 0.9% INJ ONE (20:28)
[2018-11-21 21:43] LABS: ALLEN TEST YES; BE -13.2 mmoll (-3.0-3.0); BLOOD TYPE ARTERIAL; HCO3-(ACT) 14.5 mmoll (20.0-26.0); METHB 0.7 % (0.0-1.5); O2(CT) 18.2 mL/dL (15.0-23.0); O2HB 94.2 % (95.0-99.0); PO2(98.6) 85 mmHg (60-100); SAMPLE BLOOD; SAO2 96.7 % (95.0-100.0); THB 13.7 g/dL (11.5-17.4)
[2018-11-21 21:45] LABS: PCO2(98.6) 91 mmHg (35-45); pH(98.6) 6.96 (7.35-7.45)
[2018-11-21 21:46] LABS: MODALITY AMBU BAG
[2018-11-21] MEDS ORDERED: VANCOMYCIN IV PER PHARMACY MISC SCH (21:56)
[2018-11-21] MEDS ORDERED: LOVENOX SUBQ SCH (22:00)
[2018-11-21] MEDS ORDERED: SODIUM BICARBONATE 8.4% 100 MEQ in D5W 1,000 ML IV SCH (22:00)
[2018-11-21] MEDS ORDERED: DOBUTAMINE 250 MG/D5W 250 MG/250 ML IV.SOLN IV SCH (22:00)
[2018-11-21 22:17] LABS: CALCIUM 11.6 mg/dL (8.8-10.2); CREATININE 3.8 mg/dL (0.7-1.2); POTASSIUM 5.9 mmol/L (3.5-5.1)
[2018-11-21] MEDS: HUMALOG SUBQ SCH (22:24)
[2018-11-21] MEDS: COREG NG SCH (22:30)
[2018-11-21] MEDS ORDERED: KAYEXALATE PO ONE (22:40)
[2018-11-21] MEDS ORDERED: VANCOMYCIN 1,300 MG in NS 250 ML IV ONE (23:00)
[2018-11-21] MEDS: LEVOPHED 8 MG in D5 1/2 NS 250 ML IV SCH (23:08)
[2018-11-21] MEDS: DUONEB (A & A) INH SCH ×2 (23:12→23:16)
[2018-11-22 00:39] LABS: ALLEN TEST YES; BE -8.9 mmoll (-3.0-3.0); BLOOD TYPE ARTERIAL; HCO3-(ACT) 17.9 mmoll (20.0-26.0); METHB 1.1 % (0.0-1.5); O2(CT) 18.1 mL/dL (15.0-23.0); O2HB 92.8 % (95.0-99.0); PO2(98.6) 68 mmHg (60-100); SAMPLE BLOOD; SAO2 95.6 % (95.0-100.0); SRATE 20 BPM; THB 13.9 g/dL (11.5-17.4); TVOL 500 mL
[2018-11-22 00:41] LABS: MODALITY VENTILATOR; PCO2(98.6) 66 mmHg (35-45); pH(98.6) 7.12 (7.35-7.45)
[2018-11-22] MEDS: ZOSYN 3.375 GM in NS 50 ML IV SCH ×4 (01:08→18:18)
--- NOTE | 2018-11-22 01:54 | HISTORY AND PHYSICAL ---
CHIEF COMPLAINT: Cardiac arrest. HISTORY OF PRESENT ILLNESS: Most history is obtained via the medical record as the patient is unresponsive and family is not currently available. The patient reportedly had complained of 2 to 3 days of chest pain and dyspnea. Patient had sudden collapse at home. called 911. The patient was in cardiac arrest on arrival to the ED at [place]. He received at that time 2 of epinephrine, 1 of bicarbonate, 1 of Narcan with return of spontaneous circulation. He was reportedly beginning to arouse somewhat and having some nonpurposeful movements prior to transfer here. On arrival here in ICU at [facility], the patient immediately went into cardiac arrest with initial heart rate of 30 and subsequently PEA. CPR was resumed. The patient was bagged. The patient was given 5 rounds of epinephrine, 2 amps of bicarbonate and 2 amps of calcium chloride. After this, he again had return of spontaneous circulation. After 2nd code, the patient had a good saturation and reasonable blood pressure maxed out on epinephrine and Levophed drips. Initial cardiac workup was negative aside from elevated BNP at 22,000, but the patient did have acute kidney injury with hyperkalemia treated initially in the ER with glucose, insulin and calcium. He was found to have a dense right upper lobe pneumonia and therefore was thought that his event was likely septic shock although a cardiac component could not be entirely ruled out at this time given patient's significant cardiac history with last known EF 20%. Repeat ABG showed continued severe acidosis and hypercapnia so patient's respiratory rate was increased and he was placed on a bicarbonate drip. Repeat chemistries are pending at this time to assess for effective previous treatment of hyperkalemia. REVIEW OF SYSTEMS: Unable to obtain secondary to patient's mental status. ALLERGIES: MERLYN inhibitors, digoxin. PAST MEDICAL HISTORY: COPD with chronic hypoxic respiratory failure on 3 L at home, chronic systolic congestive heart failure. Last known EF 20%. Coronary artery disease, left bundle branch block, pacemaker status, likely CKD 3, diabetes mellitus, restless legs syndrome, recent diabetic foot ulcer infection with MRSA, tobacco abuse. PAST SURGICAL HISTORY: Left 4th and 5th toe removal, left anterior tibial endarterectomy, left heart catheterization, defibrillator and pacemaker placement. SOCIAL HISTORY: 2 pack per day smoker for over 40 years. No alcohol or illicit drug use that we are aware of. FAMILY HISTORY: Father with COPD and coronary artery disease. Mother's history is not known. LABORATORIES: White count 18.35. Initial ABG with pH 6.9, pCO2 of 93, PO2 of 100, O2 saturation 98. Repeat ABG with pH 6.96, pCO2 of 91, PO2 of 96, O2 saturations 96.7. Sodium 136, potassium 6.7, chloride 93, bicarbonate 16, BUN 35, creatinine 3.9, glucose 144, calcium 8.4. Troponin 0.42, BNP 22,525. LFTs normal. VITALS: Post code: Pulse 79, O2 saturation 96% on 60% FiO2 via vent, blood pressure systolic 170 immediately post code, repeat blood pressure pending, respiratory rate 19. IMAGING: Chest x-ray with a dense right upper lobe pneumonia, left side well expanded and clear. No pulmonary edema. Left-sided pacemaker. ET tube in good position. PHYSICAL EXAMINATION: GENERAL: No acute distress. Intubated. Unresponsive. HEENT: Normocephalic, atraumatic. Dry mucous membranes. NECK: No cervical adenopathy. CARDIOVASCULAR: Largely irregular rhythm but with frequent PVCs. No rubs noted. PULMONARY: Right lung with significant diffuse rhonchi, some rales, mildly decreased air entry throughout. Minimal end-expiratory wheezing bilaterally. ABDOMEN: Soft, nontender. Bowel sounds decreased but present. EXTREMITIES: Peripheral pulses decreased but present. Trace lower extremity edema bilaterally. No calf tenderness or cords noted. NEUROLOGIC: Exam somewhat limited by patient's mental status. Some spontaneous respirations over the vent. No gag reflex. Pupils fixed and dilated. No corneal reflex. Doll's eyes is intact, however. Currently no movement. Currently unresponsive. PSYCHIATRIC: Exam limited by patient mental status. Currently unresponsive. SKIN: Right arm slightly dusky appearing, but does have peripheral pulses. No other new rashes or lesions noted. ASSESSMENT AND PLAN: 1. Cardiac arrest x2, septic shock secondary to pneumonia. Patient admitted after status post cardiac. Arrested again after transfer to the ICU. Had return of spontaneous circulation both times. Code as noted above. On antibiotics with vancomycin and Zosyn for right upper lobe pneumonia. Currently maxed out on epinephrine and Levophed for pressors and starting dobutamine. Given severe acidosis, we will place on bicarbonate drip. We will increase respiratory rate on vent from 16 to 19 to attempt to improve hypercapnia although much of this may be from the code. Recheck ABG in 1 hour. We will keep bicarbonate drip to 100 mL/h given patient's severe systolic congestive heart failure although he does not appear clinically volume overloaded at this time. Monitor strict ins and outs. Family is currently en route. Reportedly, they wished him to be full everything. We will further discuss with them when they arrive. Blood cultures obtained and pending. Monitor closely in ICU. 2. Chronic systolic congestive heart failure. Last known EF 20% in 2017. Will obtain a repeat echo to assess. Suspect it may have worsened in the interval. BNP is markedly elevated beyond what has been in the past, but does not clinically appear grossly volume overloaded. Giving gentle fluid as above and monitor closely for signs of volume overload. 3. Acute kidney injury. Patient appears to have a mild CKD 2 to 3 at baseline, but significantly elevated here with creatinine 3.9, BUN 35. Suspect ATN due to underlying sepsis. Possibly some volume depletion. Gentle fluids as above. Monitor strict I Os. May end up needing dialysis. We will see what happens tonight but we will likely consult Nephrology in the morning. Obtain renal ultrasound but low concern for obstruction. 4. Hyperkalemia. Patient with significantly elevated potassium on admission 6.7. Given glucose, insulin, calcium, DuoNebs. Given further calcium during code. Repeat BMP pending but suspect he will need further treatment of hyperkalemia. 5. Chronic obstructive pulmonary disease, chronic hypoxic respiratory failure. Patient reportedly on 3 L oxygen at home. Actually oxygenating fairly well at the moment. Does have significant acute hypercapnic respiratory failure currently. Increased respiratory rate as above. Repeat ABG in an hour to assess response. We will place on low-dose steroids, but patient is moving air fairly well and has pretty minimal wheezing so I do not believe COPD exacerbation is playing a major role here. 6. Diabetes mellitus. Check A1c. Monitor glucoses. Place on sliding scale insulin. 7. Coronary artery disease and pacemaker. Initial troponin negative. We will trend. Get echo as above. Monitor closely. 8. Tobacco abuse. 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 9. Left bundle branch block, old and stable. One hour of critical care time spent immediately available to the patient, performing CPR, making medical decisions, discussing case with nursing and reviewing the chart. [facility]
[2018-11-22] MEDS: LEVOPHED 8 MG in D5 1/2 NS 250 ML IV SCH ×4 (03:12→17:59)
[2018-11-22 05:40] LABS: ALLEN TEST YES; BE -5.7 mmoll (-3.0-3.0); BLOOD TYPE ARTERIAL; HCO3-(ACT) 20.5 mmoll (20.0-26.0); METHB 1.2 % (0.0-1.5); O2(CT) 19.8 mL/dL (15.0-23.0); O2HB 97.3 % (95.0-99.0); PCO2(98.6) 45 mmHg (35-45); PO2(98.6) 177 mmHg (60-100); SAMPLE BLOOD; SAO2 99.7 % (95.0-100.0); SRATE 20 BPM; THB 14.2 g/dL (11.5-17.4); TVOL 500 mL; pH(98.6) 7.28 (7.35-7.45)
[2018-11-22 05:42] LABS: MODALITY VENTILATOR
[2018-11-22] MEDS: HUMALOG SUBQ SCH ×4 (06:23→20:09)
[2018-11-22 06:47] LABS: HEMOGLOBIN A1C 7.1 % (4.8-6.0)
[2018-11-22 07:18] LABS: HEMATOCRIT 40.6 % (42.0-52.0); HEMOGLOBIN 13.6 g/dL (14.0-18.0); MCH 30.4 PG (27-31); MCHC 33.5 g/dL (33-37); MCV 90.6 FL (81-99); MPV 13.1 FL (7.4-10.4); PLT 156 X1000 (130-400); RBC 4.48 XMIL (4.7-6.1); RDW 14.2 % (11.5-14.5); WBC 13.98 X1000 (4.8-10.8)
[2018-11-22 07:19] LABS: TSH 0.8 uIUmL (0.27-4.20)
[2018-11-22 07:21] LABS: FREE T4 0.66 ng/dL (0.93-1.70)
[2018-11-22 07:25] LABS: ALB/GLOB RATIO 0.6; ALBUMIN 2.5 g/dL (3.5-5.0); CALCIUM 8.5 mg/dL (8.8-10.2); POTASSIUM 6.3 mmol/L (3.5-5.1); TOTAL BILIRUBIN 1.08 mg/dL (0.20-1.00); TOTAL PROTEIN 6.5 g/dL (6.3-8.3)
--- NOTE | 2018-11-22 07:36 | Diag Imaging Result Doc PS360 ---
EXAM: CHEST-PORTABLE HISTORY: verify placement ETT TECHNIQUE: Portable chest single view COMPARISON: 11/21/2018 FINDINGS: Endotracheal tube is in good position. Tip is located approximately 3 cm above the shalini. Nasogastric tube overlies the esophagus and stomach. There are infiltrates throughout the right lung. These are more prominent than on the prior study. There is also pulmonary edema on the current study. IMPRESSION: Interval worsening. Endotracheal tube in good position. Electronically signed by Aaron Su 11/22/2018 7:34 AM
[2018-11-22] MEDS: DUONEB (A & A) INH SCH ×4 (08:05→19:30)
[2018-11-22] MEDS ORDERED: D50W SYRINGE IV ONE ×3 (08:24→21:44)
[2018-11-22] MEDS ORDERED: HUMULIN R IV ONE ×3 (08:24→21:44)
[2018-11-22] MEDS ORDERED: CALCIUM GLUCONATE 4.65 MEQ in NS 50 ML IV ONE ×2 (08:24→09:00)
[2018-11-22] MEDS ORDERED: SODIUM CHLORIDE 0.9% INJ SCH (08:30)
[2018-11-22] MEDS ORDERED: PROTONIX IV SCH (08:30)
--- NOTE | 2018-11-22 08:52 | Diag Imaging Result Doc PS360 ---
EXAM: US RENAL 2 (RETROPER) COMPLETE HISTORY: domingo/arf TECHNIQUE: Renal ultrasound COMPARISON: 07/21/2017 FINDINGS: The right kidney measures 11.5 x 5.9 x 6.8 cm. Normal renal echotexture and cortical thickness. No renal stone or hydronephrosis. No renal mass. The left kidney measures 11.6 x 6.1 x 5.5 cm. Normal renal echotexture and cortical thickness. No renal stone or hydronephrosis. No renal mass. IMPRESSION: Normal renal ultrasound. Electronically signed by Aaron Su 11/22/2018 8:50 AM
[2018-11-22] MEDS ORDERED: PROTONIX ONE (08:58)
[2018-11-22] MEDS ORDERED: LACTULOSE PO ONE (09:15)
[2018-11-22] MEDS: COREG NG SCH (09:28)
[2018-11-22] MEDS: SOLU-MEDROL IV SCH ×2 (09:30→16:03)
[2018-11-22 09:51] LABS: BANDS 32 % (0-1); LYMPHS 6 % (21-51); MONO 2 % (1-9); SEGS 58 % (42-75)
--- NOTE | 2018-11-22 11:07 | Diag Imaging Result Doc PS360 ---
EXAM: CHEST-PORTABLE HISTORY: cvl placment TECHNIQUE: Chest single view COMPARISON: 1:44 AM FINDINGS: Interval placement of a left jugular line. The tip overlies the mid superior vena cava. No pneumothorax. There has been no other interval change. Electronically signed by Aaron Su 11/22/2018 11:05 AM
[2018-11-22] MEDS: MAGNESIUM SULFATE 2 GM/S.W.I. 2 GM/50 ML IVPB IV SCH ×4 (11:33→20:06)
[2018-11-22] MEDS: MORPHINE IV PRN ×2 (12:15→18:18)
[2018-11-22 13:53] LABS: ALLEN TEST YES; BE 0.5 mmoll (-3.0-3.0); BLOOD TYPE ARTERIAL; HCO3-(ACT) 25.1 mmoll (20.0-26.0); O2(CT) 16.6 mL/dL (15.0-23.0); PO2(98.6) 52 mmHg (60-100); SAMPLE BLOOD; SRATE 20 BPM; THB 13.3 g/dL (11.5-17.4); TVOL 500 mL; pH(98.6) 7.29 (7.35-7.45)
[2018-11-22 13:55] LABS: MODALITY VENTILATOR; O2HB 88.7 % (95.0-99.0); PCO2(98.6) 59 mmHg (35-45)
[2018-11-22] MEDS: TYLENOL PO PRN (14:03)
--- NOTE | 2018-11-22 14:56 | ECHO REPORT ---
ORDER DATE: 11/21/2018 INTERPRETING PHYSICIAN: Dr. Kay REQUESTING PHYSICIAN: CLINICAL INDICATIONS: This is a 62-year-old male with congestive heart failure. M-MODE MEASUREMENTS: Right ventricle: cm. Left ventricle end diastole: 3.7 cm. Left ventricle end systole: 2.2 cm. Posterior wall: 1.1 cm. Interventricular septum: 1.1 cm. Left atrium: 2.3 cm. Aortic root: Not measured. SUMMARY OF 2-DIMENSIONAL IMAGIN. This study is difficulty. Optison was added to optimize visualization of endocardium. 2. The global left ventricular systolic function appears to be normal. I do not see evidence of wall motion abnormality. The study is very difficult. 3. Right ventricle appears to be grossly normal. 4. Aortic valve shows mild degree of sclerosis of the cusps. No definite stenosis noted. 5. Mitral annulus shows mild calcification. Color flow mapping is unremarkable. 6. Pulse wave Doppler of mitral inflow shows relatively normal E/A ratio. 7. Tissue Doppler of septal and lateral mitral annulus averages 5.5 cm. 8. There is impaired left ventricular relaxation. 9. Pulmonary pressure appears to be normal. 10.Tricuspid valve shows very mild degree of regurgitation. 11.Inferior vena cava is not dilated. 12.Pulmonic valve is grossly unremarkable. 13.I do not see definite indication of pericardial collection. 14.There is epicardial fat pad. Clinical correlation recommended. Again, the study was very difficult. cc: Abdi Kay MD
[2018-11-22 14:57] LABS: CALCIUM 8.1 mg/dL (8.8-10.2); CREATININE 4.3 mg/dL (0.7-1.2); MAGNESIUM 1.5 mg/dL (1.5-2.7); POTASSIUM 6.2 mmol/L (3.5-5.1)
[2018-11-22] MEDS ORDERED: ALBUTEROL 0.5% INH CONC FOR HYPERKALEMIA INH ONE ×2 (15:35→21:45)
--- NOTE | 2018-11-22 15:41 | PROGRESS NOTE ---
DATE: 11/22/2018 INTERVAL HISTORY: Mr. Layton was admitted overnight to ICU for cardiac arrest and hypoxic respiratory failure. He had cardiac arrest in ICU and required resuscitation for about 15 minutes. SUBJECTIVE: He is obtunded, intubated does not respond. The patient's family is at bedside. VITALS: He has been afebrile. Temperature of 98.6 degrees, pulse 105, respiratory 22, blood pressure 118/63, he is maintaining MAP of more than 65 however requiring pressors. He is on mechanical ventilation at the moment requiring 100% FiO2. He was not put on hypothermia protocol because of sepsis. PHYSICAL EXAMINATION: General: He is intubated. He has decreased expiratory breath sound and mild wheezes bilaterally. Thick chest wall precludes proper examination. Cardiovascular: S1, S2 normal. No murmur, rub, or gallop. On monitor it appears that he has a ventricularly paced rhythm. Abdomen: Soft, nontender, hypoactive bowel sound. Chronic appearing bilateral lower extremity edema and some stasis dermatitis. He has urine catheter in place.On his current neurological examination his pupils are bilaterally equal reacting to light. He also has positive bilateral corneal reflex. He does not have any cough. Does not move to painful stimuli. LABS: Suggestive of leukocytosis, normocytic anemia, normal platelet count, metabolic and respiratory acidosis, lactic acidosis, hyperkalemia, acute kidney injury, likely acute tubular necrosis. He has been anuric so far, elevated troponins, transaminitis. IMAGING: EKG was suggestive of ventricular paced rhythm. Echocardiogram is pending. Chest x- ray today morning suggestive of interval worsening with endotracheal tube in position and pulmonary edema. ASSESSMENT AND PLAN: 1. Cardiorespiratory arrest in the setting of acute likely hypoxic hypercarbic respiratory failure due to right upper lobe pneumonia and with concurrent hyperkalemia and profound respiratory and metabolic acidosis due to acute kidney injury. 2. Acute hypoxic hypercarbic respiratory failure, septic shock and lactic acidosis due to right upper and middle lobe pneumonia and acute COPD exacerbation. 3. Acute kidney injury, hyperkalemia, metabolic acidosis anuria in the setting of acute renal failure due to septic shock, with possibly home use of diuretics. 3. Elevated troponins likely in the setting of type 2 myocardial infarction with coronary angiography in 2018 suggestive of ejection fraction of 20% and no obstructive coronary artery lesion and likely nonischemic cardiomyopathy status post automated implantable cardioverter 4. Acute encephalopathy due to above mentioned medical conditions. In future I will get head CT once he is stable enough to go down to CT. PLAN: 1. Continue mechanical ventilation and I will consult Pulmonology for ventilator management. I will continue him on intravenous vancomycin, intravenous Zosyn and intravenous norepinephrine for his septic shock with MAP goal of more than 65. I will also start him on intravenous steroid for suspected acute chronic obstructive pulmonary disease exacerbation. 2. I will continue Justin catheterization. Will give him intravenous dextrose, intravenous insulin and lactulose with calcium gluconate for hyperkalemia and will follow up with repeat potassium level. Depending on his course I would consult Nephrology team as well. I am holding his home medications for his nonischemic cardiomyopathy until he is more stable. 3.I will continue heparin for deep venous thrombosis prophylaxis, pantoprazole GI prophylaxis. The patient's condition is extremely critical. He is on life support. I explained to the patient's family at bedside including his about his critical condition. TIME SPENT: More than 30 minutes of critical care time was spent in taking care of this patient. cc: Yan Solomon MD MTDD
[2018-11-22 15:57] LABS: UR CREAT RANDOM 54.5 mg/dL (14-26)
[2018-11-22] MEDS ORDERED: KAYEXALATE PR ONE (16:10)
[2018-11-22] MEDS ORDERED: ALBUTEROL 0.5% INH CONC FOR HYPERKALEMIA ONE ×2 (17:29)
[2018-11-22] MEDS: NS 500 ML IV SCH (20:08)
[2018-11-22] MEDS: HEPARIN SUBQ SCH (20:09)
[2018-11-22] MEDS ORDERED: CALCIUM GLUCONATE IV PUSH ONE (21:44)
[2018-11-22] MEDS ORDERED: SODIUM BICARBONATE 8.4% IV PUSH ONE (21:44)
--- NOTE | 2018-11-22 22:18 | EKG Report ---
Test Performed on : 11/21/2018 5:37:15 PM Test Reason : cardiac arrest Blood Pressure : / mmHG Vent. Rate : 079 BPM Atrial Rate : 079 BPM P-R Int : 138 ms QRS Dur : 154 ms QT Int : 442 ms P-R-T Axes : 069 256 092 degrees QTc Int : 506 ms Atrial-sensed ventricular-paced rhythm with frequent premature ventricular complexes. Abnormal ECG When compared with ECG of 22-APR-2018 11:16, Electronic ventricular pacemaker has replaced Sinus rhythm. Unconfirmed Result
--- NOTE | 2018-11-23 00:08 | OPERATIVE NOTE ---
PROCEDURE DATE: 11/22/2018 PREOP DIAGNOSIS: 1. Cardiac arrest. 2. Septic shock. 3. Pneumonia. 4. Acute kidney injury. 5. Chronic obstructive pulmonary disease and respiratory failure. 6. Hyperkalemia. 7. Poor peripheral venous access. POSTOP DIAGNOSIS: 1. Cardiac arrest. 2. Septic shock. 3. Pneumonia. 4. Acute kidney injury. 5. Chronic obstructive pulmonary disease and respiratory failure. 6. Hyperkalemia. 7. Poor peripheral venous access. PROCEDURE: Insertion of ultrasound-guided central venous catheter. SURGEON: Ramin Sousa MD. ESTIMATED BLOOD LOSS: 3 mL. COMPLICATIONS: None apparent. FINDINGS: The left internal jugular vein was found with ultrasound. It was compressible, patent, without thrombus. TECHNIQUE: He was placed in Trendelenburg in his ICU bed. The left upper chest and neck were prepped and draped in usual sterile fashion. 1% lidocaine was used to anesthetize the skin below the left clavicle. I initially tried to enter the left subclavian vein with multiple sticks but was unsuccessful to cannulate the vein. I then used ultrasound to find the left internal jugular vein and accessed it with 1 stick under ultrasound guidance. The wire passed through the needle easily. The track was dilated. A triple-lumen central venous catheter was passed over the wire into the vein via the Seldinger technique. The wire was removed. The hub of the catheter was anchored to the skin with silk suture. All ports naseem back blood easily and were flushed with saline easily. A sterile dressing was applied. There were no apparent complications. cc: Ramin Sousa MD
[2018-11-23] MEDS: SOLU-MEDROL IV SCH ×3 (00:22→16:06)
[2018-11-23] MEDS: ZOSYN 3.375 GM in NS 50 ML IV SCH ×4 (00:22→20:29)
[2018-11-23] MEDS: HEPARIN SUBQ SCH ×3 (04:15→20:29)
[2018-11-23 04:36] LABS: ALLEN TEST YES; BE 0.2 mmoll (-3.0-3.0); BLOOD TYPE ARTERIAL; HCO3-(ACT) 25.1 mmoll (20.0-26.0); METHB 0.9 % (0.0-1.5); O2(CT) 16.8 mL/dL (15.0-23.0); O2HB 97.1 % (95.0-99.0); PCO2(98.6) 46 mmHg (35-45); PO2(98.6) 105 mmHg (60-100); SAMPLE BLOOD; SAO2 99.6 % (95.0-100.0); SRATE 20 BPM; THB 12.2 g/dL (11.5-17.4); TVOL 500 mL; pH(98.6) 7.36 (7.35-7.45)
[2018-11-23 04:37] LABS: MODALITY VENTILATOR
[2018-11-23] MEDS: MORPHINE IV PRN ×2 (04:40→16:14)
--- NOTE | 2018-11-23 05:04 | NEPHROLOGY CONSULTATION ---
DATE: 11/22/2018 REASON FOR ADMISSION: Cardiac arrest. REASON FOR CONSULTATION: Acute kidney injury, hyperkalemia, assist with management. CONSULTING PHYSICIAN: Dr. Solomon. HISTORY OF PRESENT ILLNESS: This is a 62-year-old gentleman who collapsed at home. He was in cardiac arrest upon arrival to the emergency room. He had ACLS and then ROSC. He was transferred over to the ICU at [facility]. On arrival here, he again went into PEA and then, again, cardiac arrest. He was treated with epinephrine, bicarbonate, calcium. Had pressor support on the ventilator with ROSC. The patient remains currently sedated, mechanically ventilated. We have been asked to see him secondary to his electrolyte imbalance. He did have an initial potassium on arrival of 6.7. He has been treated with insulin, D50. He has had calcium, he has had albuterol. He has had oral lactulose given. Potassium has [id number] over the last 24 hours, was 5.8 this morning, 6.2 this afternoon. He has already had another dose, a round of insulin, D50, albuterol given. Patient is obtunded. There is no family at the bedside. Information is obtained from the chart and the nursing staff. PAST MEDICAL HISTORY: COPD, chronic oxygen at home, chronic systolic heart failure, ejection fraction 20%, coronary artery disease, the left bundle branch block. He has a pacemaker, he has a baseline creatinine of around 1 to 1.3 over the last year. Diabetes, restless leg, diabetic foot ulcer, MRSA, history of tobacco abuse. SURGICAL HISTORY: He has had multiple toes removed, he has had a left hip endarterectomy, left heart catheterization, defibrillator and pacemaker placement previously. ALLERGIES: MERLYN inhibitors and digoxin. CURRENT MEDICATIONS ARE: Tylenol, DuoNeb, aspirin, epinephrine, heparin, Humalog, magnesium, Solu- Medrol, vancomycin, morphine, norepinephrine, Protonix, Pipracil and tazobactam, vancomycin. FAMILY HISTORY: COPD, coronary artery disease. SOCIAL HISTORY: He continues to smoke 2 packs today greater than 40 years. Denies ETOH or illicit drug use, in the chart. REVIEW OF SYSTEMS: Unobtainable. PHYSICAL EXAMINATION: Vital Signs: Temperature 101.8 degrees, pulse 105, respiratory 22, blood pressure 119/56. Intake 2 L. Output 500 mL. 100 mL of this was urine output. The remainder was from his NG tube. General: This is an acutely, chronically ill-appearing, middle-aged gentleman, currently mechanically ventilated. Obtunded. HEENT: Normocephalic, atraumatic. He has scleral edema. Pupils are sluggish. Oral mucosa is dry. He is orally intubated. Neck: Thick, unable to determine JVD. Cardiovascular: Tachycardic, 105 bpm. Pulmonary: Mechanically ventilated. Coarse rhonchi, wheeze bilaterally. Abdomen: Quiet. Genitourinary: Justin catheter with scant dark urine. Extremities: He has multiple digits removed left foot. He has vascular changes bilateral lower extremities. No pretibial edema. Integumentary: Skin is pale, warm, and dry. Neurologic: Again attended. LAB DATA: Hemoglobin 13.6, sodium 138, potassium 6.2, chloride 95, CO2 of 23, BUN 49, creatinine 4.3 (4.0, 3.9). He had a FENa of 5.3, an FeUN of 36%. IMAGING: Chest x-ray with right upper lobe pneumonia, left pacemaker. Renal ultrasound indicated kidney size 11.5 and 11.6 cm. No hydronephrosis. ASSESSMENT AND PLAN: 1. Acute on chronic kidney injury in the setting of cardiopulmonary arrest and septic shock. The patient's creatinine has risen modestly over the last 24 hours. His acidosis is moderate, his CO2 on his metabolic profile is 23, his CO2 on his ABGs last was 59, bicarb was 25.1. The patient does not meet criteria at this time for dialysis and, quite frankly, he is still quite hemodynamically unstable. He is still on multiple pressor support and his last cardiac event was less than 24 hours ago. We will continue to monitor closely. Add additional therapy as warranted. 2. Hyperkalemia secondary to the above. We would continue to treat this medically overnight. He has received insulin, D50, and has albuterol. He has not had a bowel movement since receiving the sorbitol. I will give him Kayexalate per rectal. If he does begin having bowel activity, we would then give him either Loklema or Veltassa in an effort to try to keep his potassium down. If he develops further cardiac issues or worsening hyperkalemia, we will likely need to initiate dialysis. Although, we would be extremely cautious to initiate that. Dictated by WYATT Sosa for Pavel Cummings MD cc: Pvael Cummings MD [facility]
[2018-11-23] MEDS: HUMALOG SUBQ SCH ×4 (06:12→20:29)
[2018-11-23] MEDS: PROTONIX PO SCH (06:12)
[2018-11-23 06:35] LABS: BASO# 0.04 X1000 (0.0-0.2); BASO% 0.5 % (0.0-0.8); EOS# 0.01 X1000 (0.0-0.7); EOS% 0.1 % (0.0-10.0); HEMATOCRIT 34.6 % (42.0-52.0); HEMOGLOBIN 11.7 g/dL (14.0-18.0); IMM GRAN# 0.12 X1000 (0.0-0.04); IMM GRAN% 1.4 % (0.0-0.5); LYMPH# 0.52 X1000 (1.2-3.4); LYMPH% 6.2 % (20.5-51.1); MCH 30.2 PG (27-31); MCHC 33.8 g/dL (33-37); MCV 89.2 FL (81-99); MONO# 0.56 X1000 (0.11-0.59); MONO% 6.6 % (1.7-9.3); NEUT# 7.19 X1000 (1.4-6.5); NEUT% 85.2 % (42.2-75.2); PLT 113 X1000 (130-400); RBC 3.88 XMIL (4.7-6.1); RDW 14.2 % (11.5-14.5); WBC 8.44 X1000 (4.8-10.8)
[2018-11-23 06:40] LABS: INR 1.23; PROTIME 16.5 Seconds (11.0-16.0)
[2018-11-23 06:41] LABS: PTT 41.1 Seconds (22.3-41.8)
[2018-11-23 07:01] LABS: BANDS 8 % (0-1); LYMPHS 8 % (21-51); MONO 4 % (1-9); SEGS 80 % (42-75)
[2018-11-23 07:14] LABS: ALB/GLOB RATIO 0.8; ALBUMIN 2.5 g/dL (3.5-5.0); CALCIUM 8.3 mg/dL (8.8-10.2); CREATININE 5.4 mg/dL (0.7-1.2); POTASSIUM 5.1 mmol/L (3.5-5.1); TOTAL BILIRUBIN 0.6 mg/dL (0.20-1.00); TOTAL PROTEIN 5.7 g/dL (6.3-8.3)
[2018-11-23] MEDS: DUONEB (A & A) INH SCH ×5 (07:14→23:30)
--- NOTE | 2018-11-23 07:22 | Diag Imaging Result Doc PS360 ---
EXAM: CHEST-1 VIEW HISTORY: SOB TECHNIQUE: Portable chest single view COMPARISON: 11/22/2018 FINDINGS: There are dense infiltrates in the upper and mid right lung. These are less prominent than on the prior study. No change in the endotracheal tube, nasogastric tube, and left-sided pacemaker. The left lung remains clear. No pleural effusions identified. IMPRESSION: Mild interval improvement. Electronically signed by Aaron Su 11/23/2018 7:19 AM
--- NOTE | 2018-11-23 07:44 | CONSULTATION ---
DATE OF CONSULTATION: 11/22/2018 REQUESTING PROVIDER: WYATT Cardozo. REASON FOR CONSULTATION: Respiratory failure. HISTORY OF PRESENT ILLNESS: This is a 62-year-old male with a medical history of chronic hypoxic respiratory failure secondary to COPD with ongoing tobacco abuse, chronic systolic congestive heart failure, coronary artery disease, ischemic cardiomyopathy, left bundle branch block, chronic kidney disease, diabetes mellitus type 2, restless legs syndrome, and diabetes foot ulcer infection with MRSA. He presented to the [facility] via EMS yesterday with cardiopulmonary arrest. Per H and P, the patient's reported that the patient had been complaining of chest pain and shortness of breath for 3 days. The patient was 1st found in full arrest by his at home. She called 9-1-1. EMS gave 2 epinephrine, 1 bicarb, and 1 mg Narcan, and also placed a Amari airway on the way. Upon arrival to the ER at 1719, CPR continued for another 10 minutes with intubation placed, 2 epinephrine and 3 bicarb given. Initial work up revealed acute on chronic kidney injury, right upper lobe pneumonia, septic shock, hyperkalemia, severe acidemia with hypercapnia and hyperlactemia, and upper GI bleeding. He was transferred to the ICU in our facility at 2110. Ten minutes later, he went into cardiac arrest again. The code ran for about 15 minutes. He received 5 epinephrine, 2 bicarb, and 2 calcium chloride this time before regaining spontaneous circulation. His troponin has been elevated since last night. At the time of my examination, he developed fever at 100.9. He is unresponsive without sedation. He is currently on Levophed drip. There is no family at the bedside. All information is collected from the E- chart. PAST MEDICAL HISTORY: 1. Chronic hypoxic respiratory failure, on continuous home oxygen at 3 L. 2. COPD. 3. Ongoing tobacco abuse. 4. Chronic systolic congestive heart failure, ejection fraction 20% in 09/2016. 5. Coronary artery disease. 6. Ischemic cardiomyopathy. 7. Left bundle branch block. 8. Chronic kidney disease stage 2 to 3. 9. Diabetes mellitus type 2. 10. Restless legs syndrome. 11. Diabetic foot ulcer infection with MRSA. PAST SURGICAL HISTORY: 1. Left 4th toe removal on 03/09/2017, and left 5th toe removal on 02/01/2017. 2. Right 5th toe removal on 12/04/2017. 3. Left anterior tibial arthrectomy, left posterior tibia arthrectomy with percutaneous balloon angioplasty, left tibial arterial arthrectomy on 03/07/2017. 4. Left heart catheterization on 07/02/2017. 5. Defibrillator and permanent pacemaker placement in 05/2017. 6. Tonsillectomy. SOCIAL HISTORY: Put H and P, patient is and disabled. He smokes 2 packs per day for over 40 years. He has no alcohol or illicit drug use. FAMILY HISTORY: Positive for COPD, Parkinson disease, and coronary artery disease. ALLERGIES: MERLYN inhibitors, digoxin. REVIEW OF SYSTEMS: Unable to be obtained. PHYSICAL EXAMINATION: Vital Signs: Temperature 100.9, blood pressure of 87/49, pulse 105, respiratory rate 21, oxygen saturation 92% on AC mechanical ventilator with spontaneous rate 20, FiO2 100%, tidal volume 500, and PEEP 8. General: Lying in bed, intubated, in no acute distress. HEENT: Atraumatic. Trachea midline. ET tube in place. Mucosa pink and moist. Respiratory: Mechanically ventilated. Symmetrical excursion. Auscultation revealed diminished breathing sounds bibasilarly with rhonchi noted on the left. Cardiovascular: Regular rate and rhythm. Gastrointestinal: Bowel sounds normoactive in all 4 quadrants. Soft, distended. Extremity: Bilateral lower extremity pitting edema 1+. Removal of left 4th and 5th toes. Removal of right 5th toe. Right upper extremity cold, rigid, cyanosis and pitting edema 2 to 3+. Neurologic: Sedated and unresponsive. LAB DATA: White blood cells 13.98, hemoglobin 13.6, hematocrit 40.6, platelet 156,000. Sodium 140, potassium 6.3, chloride 96, carbon dioxide 20, BUN 43, creatinine 4.0. Glucose 175. Troponin 0.284. ABG, pH 7.28, pCO2 of 45, PO2 of 177, HCO3 is 20.5, base excess -5.7, oxyhemoglobin 97.3, lactate 8.50. IMAGING DATA: Chest x-ray reveals interval worsening infiltrates throughout the right lung. There is also pulmonary edema. ASSESSMENT: This is a 62-year-old male with a medical history of chronic hypoxic respiratory failure secondary to chronic obstructive pulmonary disease with ongoing tobacco abuse, chronic systolic congestive heart failure, coronary artery disease, ischemic cardiomyopathy, left bundle branch block, chronic kidney disease, and diabetes mellitus type 2, restless legs syndrome, and history of diabetic foot ulcer infection with methicillin-resistant Staphylococcus aureus. He has been admitted to the ICU since yesterday with cardiopulmonary arrest, acute on chronic kidney disease, right upper lobe pneumonia, septic shock, hypokalemia, severe acidemia with hypercapnia and hyperlactemia, and upper gastrointestinal bleeding. 1. Acute hypoxic hypercapnic respiratory failure. 2. Right upper lobe pneumonia. 3. Chronic obstructive pulmonary disease exacerbation. 4. Septic shock. 5. Cardiopulmonary arrest x2. 6. Elevated troponin. 7. Acute on chronic kidney disease. 8. Congestive heart failure with significant proBNP elevation. 9. Hyperkalemia. 10. The patient is Full Code. PLAN: 1. Continue AC mechanical ventilator. 2. Continue pressors, antibiotics, steroids, and bronchodilators. 3. Follow up with ABG, CBC, CMP, and blood culture. 4. Continue GI and DVT prophylaxis. 5. Further recommendations pending hospital course. Thank you for the courtesy of this consult. Dictated by WYATT Hinton for Sharonda Moreland MD cc: WYATT Hinton MD [facility]
[2018-11-23] MEDS: ASPIRIN NG SCH (09:06)
--- NOTE | 2018-11-23 15:15 | NEPHROLOGY PROGRESS NOTE ---
DATE: 11/23/2018 SUBJECTIVE: Patient remains mechanically ventilated. He is on morphine only for sedation. He is requiring very little that. Nurse reports only some chewing on the ET tube occasionally. OBJECTIVE: Vital Signs: Temperature 98.8 degrees, pulse 84, respiratory rate 20, blood pressure 87/48. Intake 1.4 L. Output 650 mL. He did have a very large liquid bowel movement this morning around 5:30 poor per report. General: This is a chronically ill-appearing, acutely ill-appearing gentleman mechanically ventilated. He is obtunded. HEENT: Normocephalic, atraumatic. Pupils are sluggish. Oral mucosa dry. Orally is intubated. Neck: Thick. No JVD noted. Cardiovascular: Regular rhythm. He is off Levophed with hypotensive systolic in the 80s to the low 90's Pulmonary: Mechanically ventilated. He continues with rhonchi bilaterally but no wheezes this morning. Abdomen: Hypoactive. : Justin catheter. Scant, moderately dark urine. Extremities: Vascular changes noted of bilateral lower extremities. Has some trace edema. Integumentary: Skin is pale, warm, and dry. LAB DATA: WBC of 8.4, hemoglobin 11.7, sodium 138, potassium 5.1, chloride 92, CO2 of 25, BUN 64, creatinine 5.4 (4.3, 3.8) albumin 2.5, calcium 8.3. ASSESSMENT AND PLAN: 1. Xvant-ic-tjkrxld kidney disease in the setting of cardiopulmonary arrest and septic shock. The patient remains markedly hypotensive. His creatinine has risen modestly overnight. He does not have any absolute indications for intervention today in the form of renal replacement therapy. The patient does have as noted on his urine studies. With the combination of that and his hypotensive, we will not be surprised if his creatinine does not rise further and within the next 24 to 48 hours we will have to intervene with dialysis. 2. Electrolytes, acid-base balance. His hyperkalemia improved. He did require 1 additional treatment during the night of insulin D50 and albuterol. He did finally this morning have a large liquid stool. His labs that were drawn around that time indicated a potassium of 5.1. Continue to monitor. Check labs again in the morning. Dictated by WYATT Sosa for Pavel Cummings MD cc: Pavel Cummings MD
[2018-11-23] MEDS: NS 500 ML IV SCH (20:28)
[2018-11-23] MEDS ORDERED: VANCOMYCIN 1,750 MG in NS 250 ML IV SCH (23:00)
[2018-11-24] MEDS: SOLU-MEDROL IV SCH ×3 (00:23→16:22)
[2018-11-24] MEDS: ZOSYN 3.375 GM in NS 50 ML IV SCH ×3 (00:23→12:30)
[2018-11-24] MEDS: HEPARIN SUBQ SCH ×3 (04:29→20:52)
[2018-11-24 04:58] LABS: ALLEN TEST YES; BLOOD TYPE ARTERIAL; HCO3-(ACT) 27.2 mmoll (20.0-26.0); O2(CT) 20.7 mL/dL (15.0-23.0); O2HB 96.5 % (95.0-99.0); PO2(98.6) 104 mmHg (60-100); SAMPLE BLOOD; SAO2 98.3 % (95.0-100.0); SRATE 20 BPM; THB 15.2 g/dL (11.5-17.4); TVOL 500 mL; pH(98.6) 7.37 (7.35-7.45)
[2018-11-24 04:59] LABS: MODALITY VENTILATOR
[2018-11-24 05:00] LABS: PCO2(98.6) 51 mmHg (35-45)
[2018-11-24] MEDS: PROTONIX PO SCH (06:16)
[2018-11-24] MEDS: HUMALOG SUBQ SCH ×4 (06:17→20:52)
[2018-11-24 07:07] LABS: BASO# 0.03 X1000 (0.0-0.2); BASO% 0.3 % (0.0-0.8); EOS# 0.01 X1000 (0.0-0.7); EOS% 0.1 % (0.0-10.0); HEMATOCRIT 33.5 % (42.0-52.0); HEMOGLOBIN 11.7 g/dL (14.0-18.0); IMM GRAN# 0.16 X1000 (0.0-0.04); IMM GRAN% 1.7 % (0.0-0.5); LYMPH# 0.69 X1000 (1.2-3.4); LYMPH% 7.2 % (20.5-51.1); MCH 30.2 PG (27-31); MCHC 34.9 g/dL (33-37); MCV 86.3 FL (81-99); MONO# 0.64 X1000 (0.11-0.59); MONO% 6.6 % (1.7-9.3); MPV 13.2 FL (7.4-10.4); NEUT# 8.11 X1000 (1.4-6.5); NEUT% 84.1 % (42.2-75.2); PLT 110 X1000 (130-400); RBC 3.88 XMIL (4.7-6.1); WBC 9.64 X1000 (4.8-10.8)
[2018-11-24 07:11] LABS: ALB/GLOB RATIO 0.6; ALBUMIN 2.4 g/dL (3.5-5.0); CREATININE 6.2 mg/dL (0.7-1.2); POTASSIUM 4.9 mmol/L (3.5-5.1); TOTAL BILIRUBIN 0.53 mg/dL (0.20-1.00); TOTAL PROTEIN 6.4 g/dL (6.3-8.3)
[2018-11-24 07:26] LABS: BANDS 3 % (0-1); LYMPHS 10 % (21-51); MONO 4 % (1-9); SEGS 83 % (42-75)
--- NOTE | 2018-11-24 07:54 | Diag Imaging Result Doc PS360 ---
EXAM: CHEST-1 VIEW HISTORY: SOB TECHNIQUE: Portable chest single view COMPARISON: 11/23/2018 FINDINGS: No change in the endotracheal tube or nasogastric tube. Heart is mildly enlarged. There are dense infiltrates in the right lung. No pleural effusions identified. There is a left-sided pacemaker. The overall appearance of the chest is similar to the prior exam. IMPRESSION: No interval improvement. Electronically signed by Aaron Su 11/24/2018 7:52 AM
[2018-11-24] MEDS: DUONEB (A & A) INH SCH ×5 (08:01→23:03)
[2018-11-24] MEDS: ASPIRIN NG SCH (08:38)
[2018-11-24] MEDS ORDERED: VANCOMYCIN 1,750 MG in NS 250 ML IV SCH ×2 (11:00→23:00)
[2018-11-24 12:55] LABS: CK INDEX 1.1 (0.0-2.5); CK-MB 2.81 ng/mL (0.0-5.0)
--- NOTE | 2018-11-24 13:19 | CARDIOLOGY CONSULTATION ---
DATE: 11/24/2018 CHIEF COMPLAINT: This is a cardiac arrest patient. REASON FOR CONSULTATION: Ventricular tachycardia with positive troponins. HISTORY: Mr. Layton is an unfortunate 62-year-old male, who developed a sudden cardiac arrest at home on November 21. At that time, his was with him, and they summoned the EMS. Cardiopulmonary resuscitation was carried out. Please refer to H P and EMS notes. Eventually after a 2nd episode of cardiopulmonary arrest that took place in the intensive care unit, the patient has stabilized. He has developed acute renal failure in the setting of right upper lobe pneumonia and septicemia with blood cultures positive for Streptococcus pneumoniae. He is unresponsive. He is intubated. Yesterday at around 11 a.m., they noted had a run of ventricular tachycardia, and they had documented elevation of troponin levels on him from the first one on admission at 0.042, then 0.11, 0.284, 0.303, 0.309, and 0.258. His EKGs have shown a left bundle branch block type of pattern with atrial sense and a suggestion of ventricular-paced activity. The patient at this time is unresponsive. Family is not around. PAST HISTORY: Positive for hypertension. He has been diagnosed with a dilated cardiomyopathy, and he has had a heart catheterization in 2012 and a subsequent one on July 2017 that showed only mild coronary disease. On 05/28/2017, the patient underwent implantation of a biventricular ICD device by Dr. Wyatt Babin. The device is a [employer]. Generator model is [id number] Quadra/Assura JAVA LEAD. Generator serial number is [id number]. The last interrogation took place on 06/04/2018, and the device was working properly. There was no atrial fibrillation. There was no arrhythmia detected at that time. The patient has no prior history of renal disease. During this admission, he has developed acute renal failure. On July 2017, his creatinine was 0.9. Upon presentation to [facility] with a cardiac arrest, his creatinine was 3.9, and it has risen up to 6.2. Nephrology is being consulted at this time, and they are following the patient. The patient's additional history is positive for tobacco use, neuropathy in the feet, diabetes mellitus, a tonsillectomy. SOCIAL HISTORY: He is . He has children. FAMILY HISTORY: Positive for coronary heart disease. HOME MEDICATIONS: At the time of the present admission included amlodipine 5 at bedtime, aspirin 81 daily, carvedilol 6.25 twice a day, Cymbalta once a day, doxycycline 100 every 12 hours, glipizide 5 mg daily, metformin 1000 at bedtime, Januvia, furosemide, oxycodone. ALLERGIES: Digoxin and MERLYN inhibitors. REVIEW OF SYSTEMS: Not obtainable. PHYSICAL EXAMINATION: Vital Signs: The patient was on pressors up until yesterday. Today, his blood pressure 102/58, temperature is 98.8 degrees, pulse 73, respirations 20. General: He is unresponsive. He seems to grimace a little bit when I press on the sternum, and he appears to attempt to open his eyes; however, he is not following any commands. HEENT: Pupils in midposition. He is orotracheally intubated. Chest: Diminished breath sounds, especially in the right lung. Heart: Sounds are regular and rhythmic. I do not hear a gallop or murmur. Abdomen: Slightly distended. Bowel sounds diminished. Extremities: Showed decreased pulses. No edema. Neurological: He is unresponsive. DIAGNOSTIC STUDIES: Blood work right now, hemoglobin is 11.7, hematocrit 33.5%, white cell count 9640. His blood gases on FiO2 of 100%: PO2 is 104, CO2 of 51, pH 7.37. Sodium 142, potassium 4.9, BUN 92, creatinine 6.2. IMPRESSION: 1. Patient who has suffered a cardiac arrest. The etiology of this appears to be sepsis. 2. The patient's blood culture is growing Streptococcus pneumoniae, which in combination with his chest x-ray is basically makes a diagnosis for right upper lobe pneumonia, complicated with septicemia. 3. Acute renal failure. 4. History of dilated cardiomyopathy, status post biventricular implantable cardioverter- defibrillator. 5. Diabetes mellitus, type 2. 6. Non sustained ventricular tachycardia in the setting of acute illness in a patient with dilated CMP and ICD in place. RECOMMENDATION: At this time, the patient is in critical condition. I do not suggest pharmacological intervention to minimize V tach since this is likely to be mediated by metabolic derangement. He does have already a defibrillator, and he does not have coronary heart disease of any significance. The best thing to do is try to deal with the sepsis and the acute renal failure optimizing volume/electrolytes. The patient is being followed by Pulmonology and Nephrology at this time. I will probably suggest to get Infectious Disease in the case for opinion. cc: Abdi Kay MD MTDD
[2018-11-24] MEDS: ROCEPHIN 2 GM in NS 50 ML IV SCH (14:34)
--- NOTE | 2018-11-24 14:53 | PROGRESS NOTE ---
DATE: 11/24/2018 SUBJECTIVE: The patient is currently intubated and poorly responsive. OBJECTIVE: Vital signs: Temperature is 98.8 degrees, pulse is 76, respiratory rate 20, blood pressure is 112/62, oxygen saturation is 96%. HEENT: Atraumatic, normocephalic. Cardiovascular system: S1, S2. Respiratory system: Has evidence of good air entry bilaterally. Abdomen: Soft, nontender. No masses felt. Extremities: No evidence of edema. Central nervous system: No obvious focal deficits noted. LABS: WBC is 9.64, hematocrit is 33.5, with a platelet count of 110,000. Sodium is 142, potassium 4.9, chloride is 93, bicarb 26, BUN is 19, creatinine 6.2. ABG 7.37/51/104/98.3%. X- ray chest shows dense infiltrate in the right lung. ASSESSMENT AND PLAN: 1. Acute respiratory failure. Continue ventilator support. Pulmonary team is following. 2. Septic shock. Source of sepsis is probably pneumonia. Maintain patient on pressors as needed. Follow up on culture report. 3. Pneumonia secondary to strep pneumoniae. Continue antibiotics as recommended by ID. 4. Chronic obstructive pulmonary disease. Maintain patient on nebulized bronchodilators, as well as steroids. Pulmonary team is following. 5. Status post cardiac arrest. Aware. 6. Acute on chronic kidney disease. Follow up on renal function. Nephrology is following. 7. Deep vein thrombosis prophylaxis. Heparin. 8. Gastrointestinal prophylaxis. PPI. cc: Satinder Kamara MD
--- NOTE | 2018-11-24 15:10 | NEPHROLOGY PROGRESS NOTE ---
DATE: 11/24/2018 SUBJECTIVE: The patient remains unresponsive and remains mechanically ventilated. OBJECTIVE: Vital Signs: Temperature 99 degrees, pulse 80, respiratory rate 19, blood pressure 113/63, intake 200 mL, output 605 mL. General: Middle-aged gentleman acutely, ill-appearing, obtunded, mechanically ventilated. HEENT: Normocephalic, atraumatic. Orally intubated. Neck: Thick without JVD. Cardiovascular: Regular rate. He remains on pressor support. Abdomen: Hypoactive bowel sounds. Genitourinary: Justin catheter. Scant urine. Extremities: He has 1+ edema. Integumentary: Skin is warm and dry. LABORATORY DATA: WBC of 9.6, hemoglobin 11.7. Sodium 142, potassium 4.9, CO2 is 26, creatinine 6.2 (5.4, 4.3). ASSESSMENT AND PLAN: Acute kidney injury in the setting of cardiopulmonary arrest. His renal function has continued to worsen and will likely need dialysis in the next 24 hours. We will request Surgery place a catheter in the morning so dialysis can be inititated. Dictated by WYATT Sosa for Pavel Cummings MD Face to face encounter, data reviewed, discussed with Sam Reynolds on 11/24/18. I agree with the above assessment and plan of care. cc: Pavel Cummings MD [facility]
--- NOTE | 2018-11-24 15:54 | INFECTIOUS DISEASE CONSULT REP ---
DATE: 11/24/2018 CONCLUSION: The patient is admitted to the hospital with a Streptococcus pneumoniae bacteremia which I think originates from streptococcal pneumonia in the patient's right lung. The patient may have an immunoglobulin deficiency. RECOMMENDATIONS: I have switched the patient from Zosyn and vancomycin to Rocephin. I have also requested that immunoglobulin levels be obtained. DISCUSSION: The patient is intubated and sedated. The information I have is from his . She says that her got lethargic and then collapsed at home. He was not coughing. He did not complain of chest pain. He is in the intensive care unit now. He is intubated and on a respirator. His CBC shows a white count of 9640, hemoglobin 11.7, platelet count 110,000. Blood gases show a pH of 7.37, a PO2 of 104, and a pCO2 of 51. The patient's creatinine is 6.2. GFR is 9. AST is 48. The other liver function studies are normal. CK is 259, 1/2 blood cultures is growing Streptococcus pneumoniae. Chest x-ray shows a dense right lung infiltrate which has not changed since the patient's admission. PAST MEDICAL HISTORY/REVIEW OF SYSTEMS: Unable to be obtained. PREVIOUS HOSPITALIZATIONS AND OPERATIONS: The patient has previously had surgery on both feet where toes were amputated. The patient's says that methicillin-resistant Staph aureus was isolated from the toes. The patient has had a combination pacemaker and defibrillator implanted in the left chest. He once was admitted for influenza. MEDICAL DISEASES: Positive for diabetes mellitus, peripheral vascular disease, cigarette smoking, chronic obstructive pulmonary disease, and atrial fibrillation. INFECTIOUS DISEASE HISTORY: Positive for pneumonia many years ago. Negative for UTI. FAMILY HISTORY: Positive for cancer, diabetes mellitus, hypertension, myocardial infarction, stroke, Alzheimer disease and amyotrophic lateral sclerosis. SOCIAL HISTORY: [place] He smokes cigarettes but he does not drink alcoholic beverages or abuse drugs. ALLERGIES: The patient is allergic to digoxin and MERLYN inhibitors. HOME MEDICATIONS: Include amlodipine, aspirin, carvedilol, doxycycline, duloxetine, furosemide, glipizide, metformin, oxycodone, Lyrica and Januvia. Patient has a dog as a pet. PHYSICAL EXAMINATION: Vital Signs: Temperature is 99 degrees, pulse 86, respirations 18, blood pressure 134/65, patient is 5 feet 9 inches tall, weighs 278 pounds. General: This is an obese, middle-aged male. He is intubated and sedated. Head, eyes, ears, nose, and throat: The patient has an orotracheal tube in place. There is no drainage from the nose or ears. Neck: No meningismus. Lungs: Clear to auscultation. Cardiovascular: Regular heart rate. Thorax: The patient has a combined pacemaker defibrillator in the left upper chest, the site is not erythematous or fluctuant. Abdomen: Soft and apparently not tender. Neurologic: The patient is sedated. He made no movements when I was examining him. There is no tremor. Integument: No rash noted. Thank you for the consult. cc: Abundio Freeman MD
[2018-11-24] MEDS: MORPHINE IV PRN (17:34)
[2018-11-24] MEDS: NS 500 ML IV SCH (20:52)
[2018-11-25] MEDS: SOLU-MEDROL IV SCH ×2 (00:25→09:03)
[2018-11-25] MEDS: ROCEPHIN 2 GM in NS 50 ML IV SCH ×2 (00:53→12:51)
--- NOTE | 2018-11-25 03:58 | PROGRESS NOTE ---
DATE: 11/23/2018 SUBJECTIVE: Patient is currently intubated. OBJECTIVE: Vital Signs: As follows: Temperature 99, pulse 83, respiratory rate is 20, blood pressure 105/56, O2 saturation is 90%. HEENT: Atraumatic, normocephalic. Cardiovascular: S1, S2. Respiratory: Has occasional rhonchi. Abdomen: Soft, nontender. No masses felt. Extremities: No evidence of edema. Central Nervous System: The patient is currently intubated. LABORATORY: WBC 8.44, hematocrit 34.6, with a platelet count of 113,000. Sodium is 138, potassium 5.4, chloride 92, bicarb 25, BUN is 67, creatinine 5.4. X-ray of the chest shows dense infiltrate in the upper and right mid right lung. ASSESSMENT AND PLAN: 1. Acute respiratory failure. Maintain the patient on ventilator support. Pulmonary Team is following. 2. Right upper lobe pneumonia. Follow up on sputum and blood cultures. Continue antibiotics. 3. Chronic obstructive pulmonary disease. Maintain patient on nebulized bronchodilators as well as steroids. 4. Septic shock. Maintain patient on pressors if needed, Continue antibiotics, f/u on cultures 5. Status post cardiac arrest. Aware. 6. Acute on chronic kidney disease. Nephrology following. 7. Hyperkalemia. Defer management to Nephrology. 8. Nonischemic cardiomyopathy. Status post automatic implantable cardioverter device (AICD) implantation. Troponin level was noted to be raised. In view of her cardiac arrest, we will consult with the Cardiology team. 9. DVT prophylaxis. Heparin. 10. GI prophylaxis. Proton pump inhibitor. cc: Satinder Kamara MD MTDD
[2018-11-25 04:53] LABS: ALLEN TEST YES; BE 0.8 mmoll (-3.0-3.0); BLOOD TYPE ARTERIAL; HCO3-(ACT) 25.5 mmoll (20.0-26.0); METHB 0.7 % (0.0-1.5); O2(CT) 14.2 mL/dL (15.0-23.0); PCO2(98.6) 47 mmHg (35-45); PO2(98.6) 72 mmHg (60-100); SAMPLE BLOOD; SRATE 20 BPM; THB 10.6 g/dL (11.5-17.4); TVOL 500 mL; pH(98.6) 7.36 (7.35-7.45)
[2018-11-25 04:54] LABS: MODALITY VENTILATOR
[2018-11-25] MEDS: HEPARIN SUBQ SCH ×3 (04:57→20:20)
[2018-11-25] MEDS: HUMALOG SUBQ SCH ×4 (06:03→20:21)
[2018-11-25] MEDS: PROTONIX PO SCH (06:04)
[2018-11-25] MEDS ORDERED: NS 2,000 ML MISC PRN (06:39)
--- NOTE | 2018-11-25 07:25 | Diag Imaging Result Doc PS360 ---
EXAM: CHEST-1 VIEW 11/25/2018 HISTORY: SOB TECHNIQUE: AP portable at 0525 COMMENT: There is an endotracheal tube with its tip approximately 4 cm above the shalini and an NG tube which passes below the diaphragm. There is hazy opacity in the perihilar portion of the right lung particularly the upper lobe. There is also an ill-defined opacity over the central diaphragm in the left lower lobe. Compared to 11/24/2018 there may be slight improvement with regard to the right-sided opacities. IMPRESSION: Bilateral pneumonia. Electronically signed by Jose Ramon Cerrato 11/25/2018 7:23 AM
[2018-11-25] MEDS: DUONEB (A & A) INH SCH ×5 (07:34→23:30)
--- NOTE | 2018-11-25 09:00 | INFECTIOUS DISEASE PROGRESS NO ---
DATE: 11/25/2018 PRESENT ILLNESS: The patient has a streptococcal pneumoniae bacteremia which originated from the patient's streptococcal pneumonia in the right lung. The patient may have an immunoglobulin deficiency. MEDICATIONS: The patient currently is receiving Rocephin 2 g IV every 12 hours. The patient has a total of 3 days of IV antibiotics to treat his pneumococcal pneumonia and bacteremia. PHYSICAL EXAMINATION: Vital Signs: Temperature is 99 degrees, pulse 77, respirations 24, blood pressure 151/72. General: This is an obese, ill-appearing, middle-aged male. He is intubated and he is comatose. Head, Eyes, Ears, Nose, and Throat: Orotracheal tube and NG tubes are in place. There is no drainage from the nose or the ears. Neck: No meningismus. Lungs: Clear to auscultation. Cardiovascular: Heart rate is regular. Abdomen: Soft and nontender. Neurologic: The patient is obtunded. There is no spontaneous movement. He does not respond to verbal stimuli. There is no tremor. Integument: No rash noted. Thorax: The patient has a combined pacemaker and defibrillator in the left upper chest. LAB AND X-RAY: Chest x-ray shows bilateral opacities. One out of two blood cultures is growing streptococcus pneumoniae. The patient's CBC shows a white count of 9640, hemoglobin 11.7, and platelet count 110,000. Blood gases show a pH of 7.36, a PO2 of 72, and a pCO2 of 47. ASSESSMENT AND PLAN: The patient has pneumococcal bacteremia originating from a pneumococcal pneumonia. My plan is to continue with Rocephin at its current dose of 2 g intravenously every 12 hours. Hopefully, the patient's immunoglobulin level will be back today and if the IgG is low, I will give the patient an IVIG infusion. The patient will need 6 weeks' worth of IV antibiotics because his combined pacemaker/defibrillator may have become infected while the patient was bacteremic. I am also going to order repeat blood cultures today. Day 1 of treatment with the antibiotics will be the first day that the patient's repeat blood cultures are sterile. COMORBIDITIES: The patient has diabetes mellitus, cigarette smoking, chronic obstructive pulmonary disease, and atrial fibrillation. cc: Abundio Freeman MD
[2018-11-25 09:02] LABS: BASO# 0.04 X1000 (0.0-0.2); BASO% 0.4 % (0.0-0.8); HEMATOCRIT 35.3 % (42.0-52.0); HEMOGLOBIN 12.3 g/dL (14.0-18.0); IMM GRAN# 0.29 X1000 (0.0-0.04); LYMPH# 1.03 X1000 (1.2-3.4); LYMPH% 10.7 % (20.5-51.1); MCH 30.1 PG (27-31); MCHC 34.8 g/dL (33-37); MCV 86.5 FL (81-99); MONO% 8.3 % (1.7-9.3); MPV 13.2 FL (7.4-10.4); NEUT# 7.43 X1000 (1.4-6.5); NEUT% 77.6 % (42.2-75.2); PLT 117 X1000 (130-400); RBC 4.08 XMIL (4.7-6.1); RDW 14.4 % (11.5-14.5); WBC 9.59 X1000 (4.8-10.8)
[2018-11-25] MEDS: ASPIRIN NG SCH (09:03)
[2018-11-25 09:21] LABS: ALBUMIN 2.6 g/dL (3.5-5.0); CALCIUM 7.3 mg/dL (8.8-10.2); CREATININE 6.4 mg/dL (0.7-1.2); POTASSIUM 4.6 mmol/L (3.5-5.1)
--- NOTE | 2018-11-25 09:28 | NEPHROLOGY PROGRESS NOTE ---
DATE: 11/25/2018 Date Seen: 11/25/2018 Time Seen: 0615. SUBJECTIVE: Mr. Layton is resting quietly in bed. He is mechanically ventilated, unresponsive. OBJECTIVE: His most recent vital signs last temperature 99.1 degrees, blood pressure 151/72, heart rate 83, respirations 19. He is currently on O2 support. Last recorded saturation 95%. He has had 200. He has had 1465 out. LABS: Are currently pending this a.m. His ABGs: PH 7.36 CO2 4772, bicarb 25.5. He has a lactate of 2.8 on 80% FiO2. PHYSICAL EXAMINATION: General: This is a 62-year-old white male resting quietly in bed, in no acute distress. Skin: Warm and dry. HEENT: Normocephalic, atraumatic. Oral ET tube remains in place. Neck: Thick, supple. Trachea is midline. Unable to determine JVD due to central line on the left and ET tube tape. Cardiovascular: The patient has a hyperdynamic PMI. He is regular rate and rhythm. He does remain on pressor support. Abdomen: Hypoactive, soft, nontender. Lungs: Clear to auscultation anterior. Equal excursion. O2 support. Genitourinary: Justin catheter is in place with minimal urine out. Extremities: Have 1+ edema. Integumentary: Integumentary warm and dry. ASSESSMENT AND PLAN: 1. Acute kidney injury in the setting of cardiopulmonary arrest. The patient's BUN and creatinine have continued to trend upward. Labs are still pending today. Justin output for urine has been stable. Secondary to his current findings on his labs we will plan to request Dr. Sousa for placement of Vas-Cath. We will plan for SLED today, 8 hours 4 K, 3 to 4 L of ultrafiltration as tolerated. 2. Electrolytes and acid-base balance. These have been stable. 3. Anemia this has been close to target. 4. Status post cardiopulmonary arrest with sepsis and pneumonia. This is followed by the primary care and Pulmonology and Cardiology. I would like to thank you for allowing us to follow with this patient. Dictated by WYATT Carlos for Pavelnimesh Cummings MD Face to face encounter, data reviewed, discussed with Joellen Luke on 11/25/18. I agree with the above assessment and plan of care. cc: WYATT Carlos MD MTDD
[2018-11-25 09:31] LABS: BANDS 2 % (0-1); LYMPHS 16 % (21-51); MONO 4 % (1-9); SEGS 72 % (42-75)
--- NOTE | 2018-11-25 11:02 | OPERATIVE NOTE ---
PROCEDURE DATE: 11/25/2018 PREOPERATIVE DIAGNOSIS: Acute kidney injury. POSTOPERATIVE DIAGNOSIS: Acute kidney injury. PROCEDURE: Insertion of central venous dialysis catheter. SURGEON: Ramin Sousa MD. ESTIMATED BLOOD LOSS: Scant. COMPLICATIONS: None apparent. TECHNIQUE: He was kept supine in his ICU bed. His right groin was prepped and draped in the usual sterile fashion. The right femoral vein was then accessed with one stick, drawing back dark nonpulsatile blood. The wire passed through the needle easily. The track was dilated and a Vas- Cath was passed over the wire via the Seldinger technique into the femoral vein. The wire was removed. The catheter was anchored to the skin with nylon suture. A sterile dressing was applied. There were no apparent complications. cc: Ramin Sousa MD
[2018-11-25] MEDS: MORPHINE IV PRN (13:59)
--- NOTE | 2018-11-25 14:02 | CONSULTATION ---
DATE OF CONSULTATION: 11/25/2018 Mr. Layton is 62 years old and he had recent cardiopulmonary arrest. He was found down and I think the duration of down time is at least somewhat uncertain. He was initially resuscitated and then had 2nd arrest and was again resuscitated. He has not regained consciousness since event 4 days ago. Workup includes lab showing blood sugars 200 to 300s. WBC count was 18,000 earlier, 9000 recently. He has slightly low platelet count. BUN has climbed from 30s to 130s. Phosphorus 7.0. Calcium 11.6 earlier, 7.3 recently. Magnesium 1.1 earlier, 2.8 recently. We do not have brain imaging this admission. By report, he had been at least somewhat noncompliant with management of his medical problems including COPD on home O2, heart failure with last known ejection fraction 20%, ischemic heart disease, diabetes mellitus, peripheral vascular disease with toe amputations bilaterally. PHYSICAL EXAMINATION: On exam now, Mr. Layton is unresponsive. There was no response to moderate noxious stimulation over the limbs. Head is unremarkable. Neck is supple. There is good lateral eye movement with passive head turning. Pupils are both very large and both react to bright light. Corneal reflex is present bilaterally. IMPRESSION: Likely anoxic brain injury. The 4-day time frame is a major negative prognostic factor. CT of the head has been ordered and I will check on that. I believe he has pacemaker and MRI will not be an option. We might consider EEG later, but I do not think there has been any suggestion of seizure and I do not think there is any past history of seizure. I do not have any other suggestion now. I will check on the CT. There was not family available in the waiting room for discussion with me at this time. Thanks for asking Neurology to see Mr. Layton. cc: MD ALEXANDRA Moreland III
--- NOTE | 2018-11-25 14:51 | VASCULAR LAB ---
PROCEDURE NAME: Arterial U/S Unilateral Arm - 11/23/2018 ROCK CUTTER: Tae REQUESTING PHYSICIAN: Dr. Moreland INDICATION: Discoloration and blister post code. FINDINGS: The arterial system in the upper arm extending to the wrist shows pulsatile flow including flow in both the radial and ulnar arteries. SUMMARY: No evidence of arterial occlusion in the right upper extremity. cc: MD Sharonda Alejandro MD
--- NOTE | 2018-11-25 15:09 | Extremity Venous Study ---
PROCEDURE NAME: Venous U/S Right Arm - 11/23/2018 RIGHT UPPER EXTREMITY VENOUS ULTRASOUND: BILLING MANAGER: Tae. REQUESTING PHYSICIAN: Dr. Moreland. INDICATION: Swelling in the upper extremity status post code. FINDINGS: The deep and superficial veins of the right upper extremity and neck were visualized. All vessels appeared compressible with forward flow and no evidence of deep or superficial venous thrombosis in the right upper extremity. There was some subcutaneous edema noted. cc: MD Sharonda Alejandro MD
--- NOTE | 2018-11-25 18:19 | Diag Imaging Result Doc PS360 ---
CT HEAD W/O CONTRAST - 11/25/2018 INDICATION: s/p cardiac arrest COMPARISON: 11/17/2016 FINDINGS: The ventricles and sulci are normal in size and contour. No intracranial mass or hemorrhage. No skull fracture. There is a nasogastric tube. There is fluid throughout both mastoids, and in the right middle ear compatible with otomastoiditis. IMPRESSION: Otomastoiditis. No acute intracranial abnormality. This exam was performed using automated exposure control, adjustment of mA or kV according to patient size, and/or use of iterative reconstruction technique Electronically signed by Glynn Sutherland 11/25/2018 6:17 PM
[2018-11-25] MEDS: NS 500 ML IV SCH (20:19)
[2018-11-25] MEDS: TYLENOL PO PRN (23:58)
[2018-11-26] MEDS: ROCEPHIN 2 GM in NS 50 ML IV SCH ×2 (00:42→12:59)
[2018-11-26] MEDS: MORPHINE IV PRN ×2 (04:04→06:15)
[2018-11-26 04:29] LABS: ALLEN TEST YES; BE -8.3 mmoll (-3.0-3.0); BLOOD TYPE ARTERIAL; HCO3-(ACT) 18.3 mmoll (20.0-26.0); METHB 0.7 % (0.0-1.5); O2(CT) 21.6 mL/dL (15.0-23.0); O2HB 94.2 % (95.0-99.0); PCO2(98.6) 41 mmHg (35-45); PO2(98.6) 84 mmHg (60-100); SAMPLE BLOOD; SAO2 96.5 % (95.0-100.0); SRATE 20 BPM; THB 16.3 g/dL (11.5-17.4); TVOL 500 mL; pH(98.6) 7.26 (7.35-7.45)
[2018-11-26 04:30] LABS: MODALITY VENTILATOR
[2018-11-26] MEDS: TYLENOL PR PRN ×2 (04:53→20:11)
[2018-11-26] MEDS: HEPARIN SUBQ SCH ×3 (04:53→21:37)
[2018-11-26 05:33] LABS: BASO# 0.06 X1000 (0.0-0.2); BASO% 0.4 % (0.0-0.8); HEMATOCRIT 39.5 % (42.0-52.0); HEMOGLOBIN 13.5 g/dL (14.0-18.0); IMM GRAN# 0.63 X1000 (0.0-0.04); IMM GRAN% 4.6 % (0.0-0.5); LYMPH# 0.91 X1000 (1.2-3.4); LYMPH% 6.7 % (20.5-51.1); MCH 29.8 PG (27-31); MCHC 34.2 g/dL (33-37); MCV 87.2 FL (81-99); MONO# 1.29 X1000 (0.11-0.59); MONO% 9.4 % (1.7-9.3); MPV 12.3 FL (7.4-10.4); NEUT# 10.79 X1000 (1.4-6.5); NEUT% 78.9 % (42.2-75.2); PLT 137 X1000 (130-400); RBC 4.53 XMIL (4.7-6.1); RDW 14.6 % (11.5-14.5); WBC 13.68 X1000 (4.8-10.8)
[2018-11-26 05:41] LABS: ALB/GLOB RATIO 0.7; DIRECT BILIRUBIN 0.4 mg/dL (0.00-0.20); TOTAL BILIRUBIN 0.91 mg/dL (0.20-1.00); TOTAL PROTEIN 7.1 g/dL (6.3-8.3)
[2018-11-26] MEDS: HUMALOG SUBQ SCH ×2 (06:04→11:12)
[2018-11-26] MEDS: PROTONIX PO SCH (06:05)
[2018-11-26] MEDS ORDERED: NS 2,000 ML MISC PRN (06:23)
[2018-11-26 06:32] LABS: ALBUMIN 2.9 g/dL (3.5-5.0); CREATININE 3.9 mg/dL (0.7-1.2); PHOSPHORUS 6.1 mg/dL (2.7-4.5)
--- NOTE | 2018-11-26 06:39 | Diag Imaging Result Doc PS360 ---
EXAM: CHEST-1 VIEW HISTORY: SOB TECHNIQUE: Portable chest single view COMPARISON: 11/25/2018 FINDINGS: Endotracheal and nasogastric tubes are in good position. There is a left-sided pacemaker. Heart is mildly enlarged. Right lung infiltrates similar to the prior exam. No pleural effusions identified. IMPRESSION: Mild interval improvement. Electronically signed by Aaron Su 11/26/2018 6:37 AM
--- NOTE | 2018-11-26 06:52 | PROGRESS NOTE ---
DATE: 11/25/2018 SUBJECTIVE: The patient is unresponsive on the ventilator. He is not on any sedation. OBJECTIVE: Vital Signs: Temperature 99.3 degrees, blood pressure 149/83, heart rate 89, respirations 22, O2 saturation 99% on the mechanical ventilator. Intake 200 mL. Output 1.4 L. General: This is a chronically ill-appearing, elderly male, currently on the ventilator. Head: Normocephalic, atraumatic. Neck: Supple. Positive for JVD. Heart: S1, S2 normal. Regular rate and rhythm. Lungs: Coarse breath sounds bilaterally. Abdomen: Positive bowel sounds. Soft, nontender, nondistended. Extremities: RUE: 3+ edema with extensive bruising and fluid filled bullae. BLE:1+ edema bilaterally. Neurologic: Unresponsive. The patient does not follow commands. LABS: White blood cell count 9.5, hemoglobin 12, hematocrit 35, platelets 117,000. ABGs: pH of 7.3, pCO2 47, pO2 72, and bicarb 25. Sodium 142, potassium 4.6, chloride 93, CO2 25, BUN 133, creatinine 6.4, glucose 311, calcium 7.3, phosphorus 7, albumin 2.6. Head CT: Otomastoiditis. ASSESSMENT AND PLAN: 1. Acute hypoxemic and hypercapnic respiratory failure. Continue to treat the underlying infectious process. Ventilatory management as per the vet assistant. 2. Pneumonia secondary to Streptococcus pneumoniae. Continue with antibiotic therapy as directed by Dr. Freeman. 3. Bacteremia secondary to Streptococcus pneumoniae. Continue with intravenous antibiotic therapy. 4. Status post cardiac arrest. Continue with supportive care. 5. Suspected anoxic encephalopathy. The head CT was unremarkable. Neurology is following. 6. Acute kidney injury. Dialysis was initiated today. Management as per the lock corner machine operator. 7. Diabetes mellitus type 2. Start the patient on a low dosage of Levemir. 8. Otomastoiditis. Continue on IV antibiotic therapy. 9. Severe protein calorie malnutrition. We will plan to initiate tube feeds tomorrow. 10. Gastrointestinal prophylaxis. Continue on Protonix. 11. Deep vein thrombosis prophylaxis. Continue on heparin. 12. Disposition. The patient is critically ill with a high risk of mortality. The patient is currently a Full Code. I discussed the patient's overall prognosis with the patient's , Beverly Layton. cc: Gabriela Diez MD [facility]
[2018-11-26 07:18] LABS: LYMPHS 8 % (21-51); SEGS 80 % (42-75)
[2018-11-26] MEDS: DUONEB (A & A) INH SCH ×5 (08:00→23:31)
[2018-11-26] MEDS: ASPIRIN NG SCH (08:22)
[2018-11-26] MEDS ORDERED: INSULIN PEN NEEDLES ONE (08:51)
--- NOTE | 2018-11-26 08:59 | NEPHROLOGY PROGRESS NOTE ---
DATE: 11/26/2018 TIME SEEN: 0630 hours. SUBJECTIVE: Mr. Layton remains ventilator dependent. He is not sedated. He is arousable. OBJECTIVE: His most recent vital signs: Temperature 100, blood pressure 150/77, heart rate 92, respirations 24. He is on 60% FiO2. Last recorded saturation 94%. He has had 1000 in; he has had 4825 out with dialysis. LABORATORY DATA: Sodium 136, potassium 6, chloride is 98, CO2 18. BUN 70, creatinine 3.9, glucose is 310. The patient has an anion gap of 20. His calcium is 8, phosphorus 6.1, albumin of 3. White count 13.68, hemoglobin 13.5, hematocrit 39.5 with a platelet count of 137. ABGs pH 7.26, CO2 41, PO2 84, bicarbonate 18.3, lactate of 3.2. This is on 60% FiO2. PHYSICAL EXAMINATION: General: This is a 62-year-old white male. He is currently resting quietly in bed. He remains ventilator dependent. No sedation. No acute distress. HEENT: Normocephalic, atraumatic. Oral ET tube remains in place. Mucous membranes are dry. Neck: Supple. Trachea midline. Unable to determine JVD due to central line to the left and ET tube taped in place. Cardiovascular: Remains hyperdynamic PMI. He has regular rate and rhythm. He has a gallop present. Lungs: Clear to auscultation anteriorly. Equal excursion. Abdomen: Hypoactive, soft, nontender. Genitourinary: Justin catheter is in place with minimal urine out. Extremities: Have no edema, no clubbing or cyanosis. Integumentary: Warm and dry. ASSESSMENT AND PLAN: 1. Acute kidney injury in the setting of cardiopulmonary arrest. The patient's BUN and creatinine continue to remain elevated. We will plan for slow, low efficiency dialysis today. He is to be on a 3 potassium. We will dialyze for 8 hours. We will attempt to pull 3 to 4 liters of ultrafiltration. 2. Electrolytes and acid-base balance with correction on dialysis. 3. Anemia. This is close to target. 4. Status post cardiopulmonary arrest with sepsis and pneumonia. He remains ventilator dependent with Pulmonology, Cardiology and Primary Care following. I would like to thank you for allowing us to follow with this patient. Dictated by WYATT Carlos for Pavel Cummings MD Face to face encounter, data reviewed, discussed with Joellen Luke on 11/26/18. I agree with the above assessment and plan of care. cc: WYATT Carlos MD [facility]
[2018-11-26] MEDS ORDERED: LEVEMIR SUBQ SCH (09:00)
[2018-11-26 12:11] LABS: HEPATITIS PROFILE ACUTE SEE COMMENTS
--- NOTE | 2018-11-26 12:29 | PROGRESS NOTE ---
DATE: 11/26/2018 SUBJECTIVE: The patient remains unresponsive on the ventilator. No acute events noted overnight. OBJECTIVE: Vital Signs: Temperature 99.7, blood pressure 137/75, heart rate 88, respirations 20, O2 saturation 98% on the mechanical ventilator. Urine output 1.1 L. General: This is a chronically ill-appearing, elderly male, unresponsive on the ventilator. Head: Normocephalic, atraumatic. Heart: S1, S2 normal. Regular rate and rhythm. Lungs: Coarse breath sounds bilaterally. No wheezing. No rales. Abdomen: Positive bowel sounds. Soft, nontender, nondistended. Extremities: Right upper extremity: 3+ edema with extensive bruising and ecchymosis and fluid filled bullae. Bilateral lower extremities 1+ edema. Neurologic: The patient is unresponsive. He does not follow any commands. LABS: White blood cell count 13, hemoglobin 13, hematocrit 39, platelets 137. ABG: pH 7.26, pCO2 of 41, pO2 of 84, bicarb 18, sodium 136, potassium 6, chloride 98, CO2 of 18, BUN 70, creatinine 3.9, glucose 310. Phosphorus 6.1, AST 95, ALT 55, alkaline phosphatase 97, albumin 3. Chest x-ray is shows right lung infiltrates. No pleural effusions. ASSESSMENT AND PLAN: 1. Acute hypoxemic and hypercapnic respiratory failure. Unchanged. The patient remains ventilator dependent. Further management as per the mechatronics technologist. 2. Pneumonia secondary to Streptococcus pneumonia. Continue with antibiotic therapy as directed by Dr. Freeman. 3. Bacteremia secondary to Streptococcus pneumonia. Continue with antibiotic therapy. Repeat blood cultures are currently pending. 4. Status post cardiac arrest. Continue with supportive care. 5. Suspected anoxic encephalopathy. Neurology is following. An EEG is planned for today. 6. Acute kidney injury. The patient is scheduled to undergo dialysis today. Management as per the phd intern. 7. Hyperkalemia. This will be addressed during dialysis today. 8. Right upper extremity ecchymosis with bullae. Will consult Wound Care and General Surgery for further recommendations. 9. Diabetes mellitus type 2 uncontrolled. Will increase the dosage of Levemir. 10. Otomastoiditis. Continue with IV antibiotic therapy. 11. Severe protein calorie malnutrition. Tube feeds will be initiated today. 12. Metabolic acidosis. Management as per the phd intern. 13. Transaminitis. We will continue to monitor closely. 14. Gastrointestinal prophylaxis. Continue on Protonix. 15. Deep vein thrombosis prophylaxis. Continue on heparin. DISPOSITION: The patient is critically ill with a high risk of mortality. I updated the patient's , Beverly Layton this morning. cc: Gabriela Diez MD MTDD
--- NOTE | 2018-11-26 13:18 | PROGRESS NOTE ---
DATE: 11/26/2018 SUBJECTIVE: Mr. Layton looks about the same clinically. I reviewed the CT images with the family. There is loss of usual leach-white distinction, but I am not sure the CT technique is adequate for full interpretation of that finding. We compared the scan yesterday with images from October of 2016. The older scan shows clear leach-white distinction, well-formed sulci, nothing remarkable. I discussed very frankly with family my impression that the prognosis is poor based on his age, pre-existing medical conditions, presumed diffuse vascular disease, 5 day course without evidence of consciousness, CT findings. At this point, he continues vegetative. Family understands that persistent vegetative state is a possible outcome. We discussed options for workup including repeat imaging, EEG, and circulatory testing. We will see if EEG can be arranged today. Further suggestion from Neurology standpoint will depend on the EEG report. cc: Devan Orosco III, MD MTDD
[2018-11-26] MEDS: OFIRMEV 1000 MG/ISOTONIC SOLN 1,000 MG/100 ML BOTTLE IV PRN ×2 (13:31→18:31)
[2018-11-26] MEDS: HUMULIN R SUBQ SCH ×2 (15:27→21:41)
[2018-11-26 17:24] LABS: URINE SOURCE CATH
[2018-11-26 17:27] LABS: BILIRUBIN URINE NEGATIVE (NEGATIVE); BLOOD URINE MODERATE (NEGATIVE); COLOR YELLOW; GLUCOSE URINE NEGATIVE (NEGATIVE); KETONE URINE TRACE mg/dL (NEGATIVE); LEUKOCYTES URINE NEGATIVE (NEGATIVE); NITRITE URINE NEGATIVE (NEGATIVE); PH URINE 5.5; PROTEIN URINE 70 mg/dL (NEGATIVE); SP GRAVITY URINE 1.014; TURBIDITY URINE HAZY (CLEAR); UROBILINOGEN URINE NORMAL (NORMAL)
[2018-11-26 17:32] LABS: UR EPITHELIAL CELLS <10 /HPF (<10); URINE BACTERIA NEGATIVE /HPF; URINE CASTS NONE SEEN; URINE CRYSTALS NONE SEEN; URINE RBC TNTC /HPF (<10); URINE SMALL ROUND CELLS NONE SEEN; URINE WBC <10 /HPF (<10); URINE YEAST PRESENT
[2018-11-26] MEDS: MAXIPIME 1 GM in NS 50 ML IV SCH (18:15)
--- NOTE | 2018-11-26 18:30 | EEG REPORT ---
DATE: 11/26/2018 LOCATION: The ICU, bed #4. EEG: EEG #[id number]. COMMENT: This is a digitally recorded EEG done portably in the ICU on a 62-year-old patient with cardiopulmonary arrest 10 days prior to EEG, persistent coma. FINDINGS: The record contains mostly very low amplitude theta symmetrically across the hemispheres. There are features of burst suppression with 0.5-1 second bursts of higher amplitude slowing by 1-several second periods of voltage suppression. There was no variation to correlate with spontaneous drowsing or sleep. Photic stimulation and hyperventilation were not done. Noxious stimulation was not applied. No epileptiform discharge was identified. INTERPRETATION: Abnormal EEG because of generalized slowing, voltage suppression, burst suppression pattern. CORRELATION: This is indicative of a diffuse encephalopathy. Burst suppression is a typical post anoxic brain injury finding and carries very poor prognosis. cc: Devan Orosco III, MD
--- NOTE | 2018-11-26 19:16 | INFECTIOUS DISEASE PROGRESS NO ---
DATE: 11/26/2018 PRESENT ILLNESS: Mr. Layton is being treated for streptococcal pneumoniae pneumonia and bacteremia. He also has otomastoiditis that is seen on his head CT. Currently his temperature is up to 102.9, and today he has a leukocytosis. MEDICATIONS: He is currently receiving Rocephin 2 g IV every 12 hours, which we will change today. PHYSICAL EXAMINATION: Vital Signs: Temperature is 103.1 degrees, pulse rate 114, respiratory rate 28, blood pressure 101/77, O2 saturation is 92% on a 60% FiO2 on the mechanical ventilator. General: This is a chronically ill-appearing, middle-aged gentleman. He is lying in the bed on the mechanical ventilator with work of breathing noted. HEENT: Atraumatic, normocephalic. Oral mucous membranes are pink and dry. Conjunctivae are pink. Oral ET tube is in place as well as an NG tube with tube feedings infusing. Cardiovascular: Heart rate and rhythm are regular. Normal sinus tachycardia on the monitor. Respiratory: Lung sounds are bilaterally diminished in the bases and coarse wheezes noted in the upper and middle lobes. He is breathing over the set rate on the ventilator with significant work of breathing noted. Abdomen: Soft, obese with hypoactive bowel sounds. Integumentary: There is a left intrajugular central line and a right groin Vas- Cath. These sites are without edema, erythema, or drainage to the sites. He is currently on SLED. Neurologic: The patient is not sedated at this point but is unresponsive with no purposeful movements noted. LABORATORY AND X-RAY: Today his white count is 13.68, hemoglobin 13.5, platelet count 137,000. This morning on a 60% FiO2 on the mechanical ventilator, his pH is 7.26, pCO2 41, pO2 84, HC03 18.3, creatinine 3.9, GFR 16, total bilirubin 0.91, direct bilirubin 0.40, AST 95, ALT 55, alkaline phosphatase 97. Immunoglobulin levels show an IgA of 349 and IgG of 719. Urine Streptococcus pneumoniae antigen is positive and Streptococcus pneumoniae has grown in his blood. There is a set of blood cultures pending that was drawn yesterday. Chest x-ray today shows mild interval improvement of the right lung infiltrate. ASSESSMENT AND PLAN: Mr. Layton is being treated for a pneumococcal pneumonia and bacteremia. He also has a otomastoiditis and a fever spike of 103.1 at this time. We will change his Rocephin to cefepime 1 g IV every 24 hours in the evening after dialysis starting this evening. His leukocytosis has also increased so we will get a sputum specimen and urine specimen for UA and reflex culture as needed. These plans have been discussed with and recommended by Dr. Freeman. COMORBIDITIES: For Mr. Larry include that he is status post cardiopulmonary arrest with acute kidney injury and hemodialysis, diabetes mellitus, cigarette smoking and chronic obstructive pulmonary disease, and coronary artery disease with chronic congestive heart failure and an EF of 20%. Dictated by WYATT Jesus for Abundio Freeman MD cc: Abundio Freeman MD [facility]everly
[2018-11-26] MEDS: NS 500 ML IV SCH (20:22)
--- NOTE | 2018-11-27 00:13 | GENERAL SURGERY CONSULTATION ---
DATE: 11/26/2018 REASON FOR CONSULTATION: Right arm and hand bulla and ischemia. HISTORY OF PRESENT ILLNESS: This is a 62-year-old male who has been admitted after cardiac arrest. He has pneumonia and ongoing respiratory failure, and probable anoxic brain injury. He was hemodynamically unstable and required pressors. Apparently, an IV in his right hand or wrist infiltrated and he had Rivas-Synephrine extravasated into the subcutaneous tissues. He subsequently has developed significant swelling, bulla, and ischemic changes of the right arm and hand. I have been asked to evaluate. PAST MEDICAL HISTORY: Per chart review, diabetes, peripheral vascular disease, tobacco abuse, COPD, atrial fibrillation. PAST SURGICAL HISTORY: Left anterior tibial endarterectomy, left heart catheterization, defibrillator and pacemaker placement, left 4th and 5th toe amputations. ALLERGIES: MERLYN inhibitors and digoxin. SOCIAL HISTORY: He smokes 2 packs per day for over 40 years. No alcohol or illicit drug use. FAMILY HISTORY: Positive for COPD and coronary artery disease. REVIEW OF SYSTEMS: Unable to obtain. PHYSICAL EXAMINATION: Vital Signs: Temperature this morning on rounds 99.7, respiratory rate 32, blood pressure ranging in the 80s to low 100s systolic. O2 saturation 96 to 97 percent. General: He is unresponsive but well-developed and looks his stated age. HEENT: Normocephalic, atraumatic. He is intubated. Neck: Supple. Cardiovascular: Tachycardic and regular. Respiratory: Coarse bilateral breath sounds. Gastrointestinal: Soft. No distention or mass appreciated. Extremities: The right forearm, hand and wrist are quite swollen. There are multiple bulla with ischemic skin changes patchy over the forearm and hand. The tip of the right thumb appears to have dry gangrene. He does have a dopplerable radial pulse at the wrist. LABORATORY: White cell count 13,000, hemoglobin 13, hematocrit 39, and platelet count 137,000. pH 7.26, pCO2 of 41, PaO2 of 84, bicarb 18, base deficit -8. Potassium 6.0, BUN 70, creatinine 3.9. Glucose 310. Sodium 136. ASSESSMENT/PLAN: A 62-year-old male with right forearm and hand necrosis secondary to overall multiorgan failure, hemodynamic instability, and probable extravasation of epinephrine into the right arm subcutaneous tissues. Currently, his prognosis is quite poor and I would continue the supportive care as you are doing. No acute surgical needs for his hand right now, but would simply keep the blisters clean. In the future, if he survives, he may require debridement or even partial finger amputation. cc: Ramin Sousa MD
[2018-11-27 04:46] LABS: ALLEN TEST YES; BE -14.7 mmoll (-3.0-3.0); BLOOD TYPE ARTERIAL; HCO3-(ACT) 13.5 mmoll (20.0-26.0); METHB 0.8 % (0.0-1.5); O2(CT) 21.2 mL/dL (15.0-23.0); O2HB 97.6 % (95.0-99.0); PCO2(98.6) 24 mmHg (35-45); PO2(98.6) 199 mmHg (60-100); SAMPLE BLOOD; SRATE 20 BPM; THB 15.2 g/dL (11.5-17.4); TVOL 500 mL; pH(98.6) 7.25 (7.35-7.45)
[2018-11-27 04:47] LABS: MODALITY VENTILATOR
[2018-11-27] MEDS: HEPARIN SUBQ SCH ×3 (06:15→21:43)
[2018-11-27] MEDS: PROTONIX PO SCH (06:15)
[2018-11-27] MEDS: LEVEMIR SUBQ SCH ×2 (06:16→08:52)
[2018-11-27 06:33] LABS: BASO# 0.38 X1000 (0.0-0.2); BASO% 1.4 % (0.0-0.8); EOS# 0.02 X1000 (0.0-0.7); EOS% 0.1 % (0.0-10.0); HEMATOCRIT 44.2 % (42.0-52.0); HEMOGLOBIN 14.6 g/dL (14.0-18.0); IMM GRAN# 1.19 X1000 (0.0-0.04); IMM GRAN% 4.4 % (0.0-0.5); LYMPH% 10.8 % (20.5-51.1); MCH 29.3 PG (27-31); MCV 88.8 FL (81-99); MONO# 1.04 X1000 (0.11-0.59); MONO% 3.9 % (1.7-9.3); NEUT# 21.31 X1000 (1.4-6.5); NEUT% 79.4 % (42.2-75.2); PLT 168 X1000 (130-400); RBC 4.98 XMIL (4.7-6.1); RDW 14.8 % (11.5-14.5); WBC 26.84 X1000 (4.8-10.8)
[2018-11-27] MEDS: HUMULIN R SUBQ SCH ×4 (06:33→20:00)
[2018-11-27 06:49] LABS: ALB/GLOB RATIO 0.7; ALBUMIN 2.9 g/dL (3.5-5.0); TOTAL BILIRUBIN 1.79 mg/dL (0.20-1.00); TOTAL PROTEIN 7.2 g/dL (6.3-8.3)
[2018-11-27 07:01] LABS: ALBUMIN 2.8 g/dL (3.5-5.0); CALCIUM 8.5 mg/dL (8.8-10.2); CREATININE 3.4 mg/dL (0.7-1.2); PHOSPHORUS 7.4 mg/dL (2.7-4.5)
[2018-11-27 07:42] LABS: BASO 1 % (0-1); LYMPHS 11 % (21-51); MONO 3 % (1-9); SEGS 85 % (42-75)
--- NOTE | 2018-11-27 07:55 | Diag Imaging Result Doc PS360 ---
CHEST-1 VIEW - 11/27/2018 INDICATION: SOB COMPARISON: 11/26/2018 FINDINGS: Stable endotracheal tube at T4. Stable nasogastric tube in the stomach. Stable temperature probe in the mid esophagus. Stable left-sided biventricular pacemaker in good position. The central infiltrate/pulmonary edema has improved. Heart size is top normal. No pneumothorax or large pleural effusion. IMPRESSION: Improvement in the central infiltrates/pulmonary edema. Electronically signed by Glynn Sutherland 11/27/2018 7:53 AM
[2018-11-27] MEDS: DUONEB (A & A) INH SCH ×4 (07:58→19:19)
[2018-11-27] MEDS ORDERED: NS 2,000 ML MISC PRN (08:21)
[2018-11-27] MEDS: ASPIRIN NG SCH (08:57)
[2018-11-27] MEDS ORDERED: ZYVOX 600 MG/D5W 600 MG/300 ML IVPB IV SCH (09:00)
[2018-11-27] MEDS ORDERED: SODIUM CHLORIDE 0.9% INJ SCH (10:15)
[2018-11-27] MEDS ORDERED: ALBUMIN 25% IV ONE (11:46)
[2018-11-27] MEDS: PROTONIX IV SCH ×2 (13:06→23:30)
--- NOTE | 2018-11-27 13:06 | NEPHROLOGY PROGRESS NOTE ---
DATE: 11/27/2018 TIME SEEM: 0605. SUBJECTIVE: Mr. Layton is resting quietly in bed. He is unresponsive. He is ventilator dependent. OBJECTIVE: His most recent vital signs, temperature 98.5 degrees, blood pressure 116/72, heart rate 100, respirations 28. Highest temperature last night was 100.5. The patient remains on 60% FiO2. Last recorded saturation 100%. He has had 300 in. He has had 4450 out. He is currently in a -8 L fluid balance. Laboratory Data: Sodium is 134, potassium 6, chloride is 97, CO2 14, BUN 60, creatinine 3.4, glucose 199, anion gap 23, calcium 8.5, phosphorus 7.4, albumin 2.9. White count 26.8, hemoglobin 14.6, hematocrit 44.2, with a platelet count of 168,000. ABGs, pH of 7.25, CO2 of 24, PO2 of 199, bicarb 13.5 with a lactate of 3.7 on 60%. Physical Examination: General: This is a 62-year-old, white male. He is resting quietly in bed. Head of the bed is elevated. Ventilator dependent. He has no response to verbal or tactile stimuli. No sedation present. HEENT: Normocephalic, atraumatic. Oral ET tube remains in place. Unable to determine JVD with ET tube straps and IV to left IJ. Cardiovascular: Regular rate and rhythm. He is tachycardic. He has hyperdynamic PMI. Gallop is present. Lungs: Clear to auscultation bilaterally. Decreased sounds. Ventilator dependent. Abdomen: Soft, nontender. Hypoactive bowel sounds. Genitourinary: Justin catheter is in place. Minimal urine out. Extremities: Have no edema. No clubbing or cyanosis. Integumentary: Warm and dry. ASSESSMENT AND PLAN: 1. Acute kidney injury in the setting of cardiopulmonary arrest. The patient remains ventilatory dependent. He is now a Do Not Resuscitate level 1. Family had initially thought that they did not want hemodialysis but had changed their minds. We will place the patient on sustained low-efficiency dialysis today. He is to be on a 3 K bath for 8 hours, 27 bicarb. We will attempt to pull 2-3 L of ultrafiltration. 2. Electrolytes and acid-base balance, with correction on dialysis. 3. Anemia. This is in target. 4. Status post cardiopulmonary arrest with sepsis and pneumonia, followed by the primary care with cardiology and pulmonology support. I would like to thank you for allowing us to follow with this patient. Dictated by WYATT Carlos for Pavel Cummings MD Face to face encounter, data reviewed, discussed with Joellen Luke on 11/27/18. I agree with the above assessment and plan of care. cc: WYATT Carlos MD [facility]
--- NOTE | 2018-11-27 13:23 | PROGRESS NOTE ---
DATE: 11/27/2018 Mr. Layton looks about the same clinically. He continues unresponsive, intubated, mechanically ventilated. Neck is supple. There is brisk lateral eye movement with passive head turning. Pupils react sluggishly to bright light. Limb tone is symmetric. EEG showed marked generalized slowing, some voltage suppression, some burst suppression features. I reviewed the earlier CT findings and recent EEG findings frankly with family including , alycia, daughter. My opinion is that he has had significant brain injury from anoxic/ischemic event 6 days ago and there has not been recovery of consciousness. He continues vegetative. In light of the time frame and other medical problems, and particularly in light of the CT and EEG findings, I would favor withdrawal of support. I made that clear to family. They understand that he may continue vegetative indefinitely, but I suspect that will not be the case in light of his medical situation. Thanks for asking Neurology to see Mr. Layton. cc: Devan Orsoco III, MD
--- NOTE | 2018-11-27 13:50 | INFECTIOUS DISEASE PROGRESS NO ---
DATE: 11/27/2018 PRESENT ILLNESS: The patient has a pneumococcal pneumonia and bacteremia. Also, otomastoiditis was seen on CT scan. The patient also has developed a very swollen erythematous right arm. He had an IV in his arm, and there was some extravasation of epinephrine. MEDICATIONS: Currently, the patient is on cefepime 1 g IV after each dialysis. PHYSICAL EXAMINATION: Vital Signs: Temperature was 105 degrees earlier, now it is 98.2, pulse is 98, respirations 27, blood pressure 116/72. General: This is an ill-appearing, middle-aged male. He seems to be having agonal respiration. Head/eyes/ears/nose/throat: Patient is intubated. The patient has an orotracheal tube in place, and there also is a nasogastric tube present. Neck: The patient has a left internal jugular venous catheter in place. The site is not erythematous or purulent. Lungs: Clear to auscultation. Cardiovascular: Heart rate is regular. Thorax: Patient has a left-sided pacemaker in place. The site is not swollen or red. Abdomen: Soft and nontender. In the right groin, there is a Vas-Cath present for the patient's dialysis. Neurologic: The patient is having agonal respirations and appears to be comatose. LAB AND X-RAY: Chest x-ray shows improvement in the central infiltrate/pulmonary edema. The patient's CBC shows a white count of 26,840, hemoglobin 14.6, and platelet count 168,000. Blood gases show a pH of 7.25, a PO2 of 199, a pCO2 of 24. Creatinine is 3.4. GFR is 19. AST is 340. ASSESSMENT AND PLAN: As regarding the patient's pneumococcal pneumonia and bacteremia, he is on cefepime, which should cover that well. He has a very severe cellulitis of the right arm. For that the patient is already on cefepime, and I have added Zyvox. The doses are both modified because the patient is going to be starting today on slow, low efficiency dialysis. He has received IVIG. COMORBIDITIES: He had a pneumococcal pneumonia with bacteremia. He has had cardiopulmonary arrest and acute renal failure. He was on hemodialysis and today he will be starting slow, low efficiency dialysis. The patient also is a diabetic and he smokes cigarettes. He has chronic obstructive pulmonary disease and congestive heart failure with poor cardiac output. The patient also has coronary artery disease. cc: Abundio Freeman MD MTDD
--- NOTE | 2018-11-27 14:27 | GENERAL SURGERY PROGRESS NOTE ---
DATE: 11/27/2018 SUBJECTIVE: The patient apparently had coffee-ground aspirate in his NG tube overnight. He has had no observable response to stimuli. He continues on the ventilator and dialysis and is requiring pressors. OBJECTIVE: Vital Signs: T max yesterday 104, current temperature 99.1, pulse is 101, respirations 27, blood pressure 127/69, O2 saturation 100%. Urine output 350 mL, 4000 mL out with dialysis yesterday. General: He is unresponsive on a ventilator. Respiratory: Bilateral coarse breath sounds. CV: Tachycardic. Extremities: The right arm was examined again. There has been no significant change from yesterday with stable bullae, swelling. It is cool to touch. There is a pulse at the wrist and there is patchy necrosis of the skin. ASSESSMENT AND PLAN: A 62-year-old male with multiorgan failure, status post cardiac arrest, now with right arm and hand ischemia secondary to extravasation injury. Overall prognosis is quite poor. EEG results are pending. The family is considering further palliative measures. cc: Ramin Sousa MD
--- NOTE | 2018-11-27 14:52 | GASTROENTEROLOGY CONSULTATION ---
DATE: 11/27/2018 ATTENDING PHYSICIAN: Dr. Diez. PRIMARY CARE PHYSICIAN: None. REASON FOR CONSULTATION: Coffee-ground emesis. HISTORY OF PRESENT ILLNESS: Mr. Layton is a 62-year-old male who was admitted on 11/21/2018 after a cardiac arrest. He has pneumonia and ongoing respiratory failure and probable anoxic brain injury. He had been on pressors. He had acute kidney injury. He is on slow hemodialysis at bedside. Today, he was noted to have coffee grounds in the NG tube, and Gastroenterology was consulted. The patient is receiving heparin 3 times daily for DVT prophylaxis. He was not on any PPIs. The primary care team has just ordered PPIs for today. I spoke to the patient's at bedside. According to the patient's , the patient never had history of previous ulcers in the stomach or any major GI problems in the past. PAST MEDICAL HISTORY: Diabetes, peripheral vascular disease, tobacco abuse, COPD, atrial fibrillation, renal failure, respiratory failure, probable anoxic brain injury. PAST SURGICAL HISTORY: Left anterior tibial endarterectomy, left heart catheterization, defibrillator pacemaker placed, and left fourth and fifth toe amputation. ALLERGIES: MERLYN inhibitors and digoxin. SOCIAL HISTORY: Smoked 2 packs per day for the last 40 years. No history of alcohol or illicit drug abuse. He is . His is present at bedside. FAMILY HISTORY: Significant for COPD and coronary disease. REVIEW OF SYSTEMS: Unable to obtain. MEDICATIONS IN THE HOSPITAL: Include heparin 5000 units subcutaneously every 8 hours, Tylenol, albuterol/ipratropium, aspirin 81 mg every day, Levemir, regular insulin subcutaneously, cefepime, morphine, dextrose, norepinephrine, normal saline, Tylenol, linezolid, Protonix. We just started the Protonix today. The patient is n.p.o. He is undergoing dialysis at bedside. He is intubated and vented. PHYSICAL EXAMINATION: Vital Signs: Temperature 99.1, pulse rate 101, respiratory rate 27, blood pressure 127/69, saturating 100% on mechanical ventilator. FiO2 of 60%. Body weight of 233 pounds 8 ounces. BMI of 34.5 kg. General: The patient is moderately built, moderately nourished, lying in bed, currently intubated, vented, and on dialysis. He is currently is off pressors. He had been given some tube feedings, but have been held as the patient had coffee grounds in the NG tube. HEENT: No pallor. Mild icterus. ET tube in place. NG tube in place. Neck: Supple. Abdomen: Protuberant, soft, nondistended. No guarding. Extremities: The right forearm, hand, and wrist are swollen. There are multiple bulla with ischemic skin changes, patchy, over the forearm and hand. The tip of the right thumb appears to have dry gangrene. Neurologic: He is unresponsive. IMAGING AND LABORATORY DATA: Hemoglobin and hematocrit are 14.2 and 44.2, white count of 26.8, platelet count 168,000. PTT of 31.5. ABG showing pH of 7.25, pCO2 of 24, PO2 of 199. This is on ventilator at 60% FiO2. Sodium 132, potassium 6, chloride 97, bicarb 49, anion gap of 23, BUN of 16, creatinine of 3.4, glucose of 199, calcium is 8.5. Phosphorus 7.4. Total bilirubin is 1.79, direct of 1, AST 340, ALT 195, total protein 7, albumin of 2.8. Urinalysis showing positive protein trace. Urine blood is moderate, ketones trace, urine RBCs too numerous to count. Hepatitis panel is nonreactive. Gastroccult was positive. Sputum culture is pending. Blood culture is negative at 48 hours on 11/17/2018. First time on admission, blood culture showed Streptococcus pneumoniae. Chest x-ray done today showed improvement in the central infiltrates/pulmonary edema. IMPRESSION AND PLAN: 1. Coffee grounds in nasogastric tube. In this regard, will start the patient on Protonix twice daily. Will watch hemoglobin and hematocrit. Currently, the patient's hemoglobin and hematocrit are stable. Patient has possible anoxic brain injury; Hold off any procedures for now. 2. Acute hypoxemic and hypercarbic respiratory failure. The patient remains ventilator dependent. This is being managed by critical care team and pulmonary team. 3. Pneumonia secondary to Streptococcus pneumonia. He is on antibiotics per Dr. Freeman. 4. Status post cardiac arrest. For the possibility of anoxic brain injury, Neurology is on board. 5. Acute kidney injury. He is getting hemodialysis at bedside. 6. Right upper extremity ecchymoses with bullae. Dr. Sousa is following. 7. Type 2 diabetes, on sliding scale insulin. 8. Protein calorie malnutrition. Will continue on tube feeds for now. 9. Transaminitis. Continue to watch the liver enzymes for now. Hepatitis panel is negative. 10. Gastrointestinal prophylaxis. Will start her on proton pump inhibitor today. 11. Deep venous thrombosis prophylaxis. Heparin may have to stopped if the patient has excessive bleeding or dropping blood counts. The above plans were discussed with the patient's family and the nursing staff, and all questions were answered. Please call us with any further questions. cc: MD Gabriela Sorto MD [facility]
[2018-11-27] MEDS ORDERED: PROTONIX IV SCH (18:00)
--- NOTE | 2018-11-27 18:20 | PROGRESS NOTE ---
DATE: 11/27/2018 SUBJECTIVE: The patient appears to be worse today. He had a temperature of a 104.6 degrees overnight and he remains unresponsive on the ventilator. OBJECTIVE: Vital Signs: T-max 104.6 degrees, blood pressure 99/60, heart rate 100, respiratory rate 28, O2 saturation is 100% on mechanical, 60% FiO2. General: This is a chronically ill- appearing, elderly male, currently unresponsive on the ventilator. Head: Normocephalic, atraumatic. Heart: S1, S2 normal. Tachycardic. Lungs: Equal air entry bilaterally. No wheezing. No rales. No rhonchi. Abdomen: Hypoactive bowel sounds. Mildly distended. Extremities: The right upper extremity has extensive ecchymosis with fluid filled bullae. Bilateral lower extremities are cold to touch. No edema. Neurologic: The patient is unresponsive. LABS: White blood cell count 26, hemoglobin 14, hematocrit 44, platelets 168,000. ABG, pH 7.25, pCO2 24, PO2 199, bicarb 13, sodium 134, potassium 6, chloride 97, CO2 14, BUN 60, creatinine 3.4, glucose 199, calcium 8.5, phosphorus 7.4, total bilirubin 1.7, AST 340, ALT 195, alkaline phosphatase 121. Chest x-ray shows central infiltrates and pulmonary edema. ASSESSMENT AND PLAN: 1. Acute hypoxemic and hypercapnic respiratory failure. The patient remains ventilator dependent. He is unresponsive. Further management as per the production expediter. 2. Pneumonia secondary to Streptococcus pneumoniae. Continue with antibiotic therapy. 3. Bacteremia secondary to Streptococcus pneumoniae. Continue with antibiotic therapy. 4. Sepsis with multiorgan failure. Continue current treatment regimen. 5. Status post cardiac arrest. Continue with supportive care. 6. Anoxic encephalopathy. Unchanged. 7. Acute kidney injury. The patient is on dialysis. 8. Anion gap metabolic acidosis. This is worse today. Management as per the corporate analyst. 9. Hyperkalemia. Unchanged. This will be addressed during dialysis today. 10. Transaminitis. Monitor. GI is following. 11. Right upper extremity ecchymosis with bullae. Continue to monitor closely. Surgery is following. 12. Uncontrolled diabetes mellitus type 2. We will increase the Levemir dose again today. 13. Gastrointestinal bleed. The patient has been seen by GI. Will continue on Protonix. 14. Deep vein thrombosis prophylaxis. Heparin is on hold due to the GI bleed. 15. Severe protein calorie malnutrition. The patient had high residuals overnight so the tube feeds have been discontinued for now. 16. Disposition. I updated the family this morning on the patient's worsening medical condition. The patient is exhibiting multiorgan failure at this time. The family also had an extensive discussion with Dr. Orosco and they are interested in palliative care involvement. We will place a consult and await further decisions to be made by the family. The patient is currently a DNR level 1. cc: Gabriela Diez MD [facility]
[2018-11-27] MEDS: NS 500 ML IV SCH (21:40)
[2018-11-27] MEDS: MAXIPIME 1 GM in NS 50 ML IV SCH (21:41)
[2018-11-28] MEDS: DUONEB (A & A) INH SCH (00:18)
[2018-11-28] MEDS: MORPHINE IV PRN ×11 (01:35→21:39)
[2018-11-28] MEDS ORDERED: TRANSDERM-SCOP TD SCH (07:00)
[2018-11-28] MEDS: TYLENOL PR PRN (15:52)
--- NOTE | 2018-11-28 16:43 | PROGRESS NOTE ---
DATE: 11/28/2018 SUBJECTIVE: The patient is comatose. His family is present at the bedside. The patient is comfort measures. OBJECTIVE: Vital Signs: Temperature 100 degrees, blood pressure 101/42, heart rate 96, respirations 15, O2 saturation 95% on a non-rebreather. General: This is an elderly male lying in bed in no acute distress. Heart: S1, S2 normal. Tachycardic. Lungs: Coarse breath sounds bilaterally. Abdomen: Positive bowel sounds. Soft, nontender, nondistended. Extremities: Edema in the right upper extremity. Trace edema in the lower extremities. Neurologic: The patient is comatose. ASSESSMENT: 1. Acute hypoxemic and hypercapnic respiratory failure. 2. Pneumonia secondary to Streptococcus. 3. Bacteremia secondary to Streptococcus. 4. Sepsis with multiorgan failure. 5. Status post cardiac arrest. 6. Anoxic encephalopathy. 7. Acute kidney injury on hemodialysis. 8. Anion gap metabolic acidosis. 9. Persistent hyperkalemia. 10. Gastrointestinal bleed. PLAN: The patient's family made the patient comfort measures only overnight and the patient is now on comfort medications only. We will continue to monitor the patient and provide support to the family. cc: Gabriela Diez MD
[2018-11-28 20:18] VITALS: BP 65/37
--- NOTE | 2018-11-30 21:20 | DISCHARGE SUMMARY ---
ADMISSION DATE: 11/21/2018 DISCHARGE DATE: 11/28/2018 FINAL DISCHARGE DIAGNOSES: 1. Acute hypoxemic and hypercapnic respiratory failure. 2. Pneumonia secondary to Streptococcus pneumoniae 3. Bacteremia secondary to Streptococcus pneumoniae. 4. Sepsis. 5. Multiorgan failure. 6. Status post cardiac arrest 7. Anoxic encephalopathy. 8. Acute kidney injury on hemodialysis. 9. Anion gap metabolic acidosis. 10. Hypokalemia. 11. Transaminitis. 12. Right upper extremity ecchymosis with bullae. 13. Uncontrolled diabetes mellitus type 2. 14. Gastrointestinal bleed. 15. Severe protein calorie malnutrition. CONSULTATIONS: 1. Pulmonary consultation with Dr. Moreland . 2. Nephrology consultation Dr. Cummings. 3. GI consultation with Dr. Reyes . 4. General Surgery consultation with Dr. Sousa. 5. Infectious Disease consultation with Dr. Freeman. 6. Neurology consultation with Dr. Orosco. IMAGIN. Renal ultrasound performed on 11/21/2018 which revealed normal renal ultrasound. 2. Portable chest x-ray performed on 11/21/2018 that revealed right upper lobe pneumonia. 3. Duplex scan of the right upper extremity which revealed no evidence of arterial occlusion. 4. Venous doppler of the right arm which revealed no evidence of deep or superficial venous thrombosis. 5. Head CT performed on 11/25/2018 that revealed otomastoiditis. PROCEDURES: 1. Insertion of ultrasound guided central venous catheter performed on 11/22/2018 . 2. Insertion of central venous dialysis catheter performed on 11/25/2018. HOSPITAL COURSE: Mr. Layton is a 62-year-old male who has a history of multiple medical problems who was brought to the ER via EMS after the patient suffered a cardiac arrest at home. EMS arrived at the patient's home and were able to revive the patient and he was transported to [place], upon arrival to [place] the patient was again in cardiac arrest and ACLS protocol was initiated and spontaneous circulation was regained. The patient was intubated and placed on the ventilator and transferred to [facility] at which time pulmonary medicine, Nephrology and ID were consulted. Blood and sputum cultures were obtained and the patient was started on broad-spectrum antibiotic therapy. On admission the patient was noted to be severely acidotic with a lactic acidosis. His troponin was noted to be slightly elevated. He was also noted to be in renal failure and had potassium of 6.75. General Surgery was consulted for placement of a central venous catheter and that was performed. The patient was treated with pressors, broad-spectrum antibiotics and fluids initially however the patient's renal function continued to worsen and general surgeon had a tunneled dialysis catheter placed and SLED was initiated. The patient's antibiotics were adjusted by Dr. Freeman and patient was maintained on the ventilator. The patient was noted to be unresponsive throughout his hospitalization, the neurologist was consulted due to concern of anoxic brain injury due to the patient's multiple cardiac arrest. After the examination a head CT was done that was unremarkable. This was then followed by EEG that confirmed changes consistent with anoxic brain injury. This was discussed with the patient's family, they opted to make the patient a DNR level 1. The patient did develop coffee-ground emesis and so GI was consulted and it was just recommended for the patient to continue on Protonix. Also the patient's liver functions started to increase and patient was starting to become more acidotic and febrile . These findings were all discussed with the patient's family who opted to withdraw care and make the patient comfort measures only. On 11/28/2018 at 2150 the patient was pronounced . The patient's family was notified of the patient's . cc: Gabriela Diez MD MTDD
== END 2018-11-28 21:50 | disposition expired | DRG 870 ==
LOC: P.ED 17:19 → ICU 19:44 → SUATTDRO 19:44 → 3N 11-28 12:44
PROVIDERS: ATTEND Internal Medicine
CPT/HCPCS: 51702; 70450; 71010; 71045; 76770; 80048; 80053; 80069; 80074; 80076; 80202; 81001; 82009; 82271; 82550; 82553; 82570; 82784; 82805; 82948; 83036; 83605; 83735; 83880; 84132; 84300; 84439; 84443; 84484; 84540; 85025; 85610; 85730; 87040; 87070; 87077; 87186; 87205; 87449; 87899; 92950; 93005; 93306; 93931; 93971; 94003; 94640; 94761; 95816; 96365; 96366; 96368; 96375; 99285; 99291; A9270; C1725; C8929; C9113; J0131; J0171; J0610; J0692; J0696; J1250; J1644; J1650; J1720; J1815; J2020; J2270; J2543; J2920; J3370; J3475; J7030; J7040; J7050; J7070; P9047; Q9957; S0164; XXXXX